=== PATIENT | male | born 1955 | race Caucasian/White ===

== ENCOUNTER → 2018-07-07 | Outpatient (REF) | payer MEDICARE, OTHER ==
[~2018-07-07] MED LIST: FAMO20TA2 OR; FLEXERIL PO; HYDR7.5T33 PO; LIDO5DIS TOP; NAPR500T OR; TRAM50TA2 OR; VICO5TAB PO
== END ==
LOC: M LAB REF 12:19
PROVIDERS: ATTEND Physician Assistant Medical
DX: M54.5 Low back pain (principal)

== ENCOUNTER → 2018-08-24 | Outpatient (CLI) | payer MEDICARE, OTHER ==
[2018-08-24 17:21] LABS: BASO # 0.1 10^3/uL (0.0-0.2); BASO % 0.6 % (0.0-1.0); EOS # 0.2 10^3/uL (0.0-0.50); EOS % 1.8 % (0.0-3.0); HEMATOCRIT 50.1 % (42.0-52.0); HEMOGLOBIN 16.7 g/dl (13.5-17.5); LYMPH # 2.7 10^3/uL (1.5-4.5); LYMPH % 31.1 % (24.0-44.0); MEAN CORPUSCULAR HEMOGLOBIN 30.6 pg (27.0-33.0); MEAN CORPUSCULAR HGB CONC 33.3 g/dl (32.0-36.5); MEAN CORPUSCULAR VOLUME 91.9 fl (80.0-96.0); MONO # 0.5 10^3/uL (0.0-0.8); MONO % 5.6 % (0.0-5.0); NEUTROPHILS # 5.2 10^3/uL (1.8-7.7); NEUTROPHILS % 60.7 % (36.0-66.0); PLATELET COUNT, AUTOMATED 205 10^3/uL (150-450); RED BLOOD COUNT 5.45 10^6/uL (4.30-6.10); WHITE BLOOD COUNT 8.5 10^3/uL (4.0-10.0)
[2018-08-24 17:39] LABS: ALBUMIN 3.9 GM/DL (3.2-5.2); ALT/SGPT 33 U/L (12-78); BILIRUBIN,TOTAL 0.5 MG/DL (0.2-1.0); BLOOD UREA NITROGEN 18 MG/DL (7-18); CALCIUM LEVEL 9.1 MG/DL (8.8-10.2); CARBON DIOXIDE LEVEL 32 MEQ/L (21-32); CHLORIDE LEVEL 105 MEQ/L (98-107); CREATININE FOR GFR 0.92 MG/DL (0.70-1.30); FREE T4 1.07 NG/DL (0.76-1.46); GLOMERULAR FILTRATION RATE > 60.0 (>49); GLUCOSE, FASTING 86 MG/DL (70-100); NT-PRO BNP 23 PG/ML (<125); POTASSIUM SERUM 4.1 MEQ/L (3.5-5.1); SODIUM LEVEL 140 MEQ/L (136-145); TOTAL PROTEIN 7.4 GM/DL (6.4-8.2)
== END ==
LOC: M LABDRWAD 14:43
PROVIDERS: ATTEND Physician Assistant
DX: R60.9 Edema, unspecified (principal)

== ENCOUNTER → 2018-08-24 | Outpatient (CLI) | payer MEDICARE, OTHER ==
--- NOTE | 2018-08-24 15:37 | REP ---
Chest two views HISTORY: Edema Comparison: 11/13/2008 The lungs are clear. The heart is normal in size. The pulmonary vasculature is normal in appearance. The bony structure is intact. IMPRESSION: No acute disease. Electronically Signed by Freddy Ovalles MD 08/24/2018 03:29 P
== END ==
LOC: M ADAMS 14:41
PROVIDERS: ATTEND Physician Assistant
DX: R60.9 Edema, unspecified (principal)

== ENCOUNTER → 2018-09-27 | Outpatient (CLI) | payer MEDICARE, OTHER ==
[2018-09-27 15:15] LABS: BLOOD UREA NITROGEN 13 MG/DL (7-18); CALCIUM LEVEL 8.8 MG/DL (8.8-10.2); CARBON DIOXIDE LEVEL 28 MEQ/L (21-32); CHLORIDE LEVEL 107 MEQ/L (98-107); CREATININE FOR GFR 0.81 MG/DL (0.70-1.30); GLOMERULAR FILTRATION RATE > 60.0 (>49); GLUCOSE, FASTING 96 MG/DL (70-100); NT-PRO BNP 28 PG/ML (<125); POTASSIUM SERUM 4.1 MEQ/L (3.5-5.1); SODIUM LEVEL 142 MEQ/L (136-145)
--- NOTE | 2018-09-27 15:20 | REP ---
Left lower extremity Duplex Doppler venous ultrasound: Real time compression and duplex Doppler interrogation of the left lower extremity deep venous system is performed. The left common femoral, superficial femoral and popliteal veins are fully compressible with transducer pressure and demonstrate normal spontaneous and phasic flow, without evidence of deep venous thrombosis. Impression: No evidence of deep venous thrombosis of the left lower extremity femoral popliteal venous system. Electronically Signed by Chandler Pennington MD 09/27/2018 03:11 P
== END ==
LOC: M LAB 14:07
PROVIDERS: ATTEND Physician Assistant
DX: M79.622 Pain in left upper arm (principal); I87.2 Venous insufficiency (chronic) (peripheral)

== ENCOUNTER → 2019-08-07 | Outpatient (CLI) | payer MEDICARE ==
--- NOTE | 2019-08-09 15:23 | SLEEPHOME ---
DATE OF PROCEDURE: 08/07/2019 ORDERED BY: Charlotte Ashraf NP Diagnostic home sleep testing was performed due to concern for the obstructive sleep apnea syndrome. For testing, a nocturnal T3 respiratory monitoring device was used. Continuous record was made of pulse, oxygen saturation, airflow, chest and abdominal strain and body position. 9 hours and 59 minutes of data were reviewed. There were 6 hours and 34 minutes marked as time in bed. During the interval marked time in bed, there were 525 respiratory events identified of 10 seconds in duration or greater for respiratory event index of 79.9. The events were primarily obstructive. Baseline pulse rate 66, pulse rate ranged 46-111. Baseline saturation 89.7%. Saturations fell to 72%. Testing was performed in both the supine and nonsupine positions. IMPRESSION: 1. Abnormal home sleep testing with repetitive respiratory events and oxygen desaturations to 72% with a respiratory event index of 79.9 is consistent with the obstructive sleep apnea syndrome. RECOMMENDATIONS: The patient should be encouraged to undergo formal sleep evaluation.
== END ==
LOC: M SLEEP HO 11:34
PROVIDERS: ATTEND Nurse Practitioner Adult Health
DX: G47.30 Sleep apnea, unspecified (principal)

== ENCOUNTER → 2019-08-22 | Outpatient (CLI) | payer MEDICARE ==
--- NOTE | 2019-08-23 12:43 | SLEEPCENT ---
DATE OF STUDY: 08/22/2019 ORDERING PROVIDER: CORIE Tang Nocturnal polysomnography was performed for the titration of pressure therapy in this patient with a clinical diagnosis of obstructive sleep apnea syndrome confirmed by home testing revealing a respiratory event index of 79.9 with oxygen desaturations to 72%. For testing, a ResMed Quattro full face mask of large size was used. 5 cm of water pressure were applied to the circuit, and the lights were extinguished. 8 hours and 9 minutes of data were reviewed. There were 370.5 minutes of sleep identified. Sleep latency was mildly prolonged 15 minutes. Rapid eye movement (REM) latency was short at 46 minutes. Sleep architecture was good with evidence of REM rebound. There were 5-6 REM cycles noted. Overall sleep efficiency was 76.5%. The patient's electrocardiogram showed a sinus rhythm with an average heart rate of 60 beats per minute. Electroencephalogram (EEG) showed reasonably normal waveforms for awake and sleep. Respiratory events were fully palliated with continuous positive airway pressure (CPAP) at a pressure of +14. Some activity was noted in the limb leads. Limb movement arousal index was only 4.4. IMPRESSION: Obstructive sleep apnea syndrome (G47.33). RECOMMENDATION: Nightly use of pressure therapy, 14 cm of water.
== END ==
LOC: M SLEEP 20:00
PROVIDERS: ATTEND Nurse Practitioner Adult Health
DX: G47.33 Obstructive sleep apnea (adult) (pediatric) (principal)

== ENCOUNTER 2019-10-23 10:35 | Emergency (ER) | payer MEDICARE ==
[~2019-10-23] VITALS: Ht 182.9 cm; Wt 163.7 kg
--- NOTE | 2019-10-23 11:18 | REP ---
Portable chest x-ray: Single view. History: Chest pain. Comparison chest x-ray: August 24, 2018. Findings: Monitoring electrodes are seen. The lungs are symmetrically aerated and free of infiltrate. The pleural angles are sharp. Heart is not enlarged. The aorta is somewhat tortuous. Pulmonary vasculature is not increased. Impression: No acute disease. Electronically Signed by Elio Rich MD 10/23/2019 11:09 A
[2019-10-23 11:21] LABS: BASO # 0.1 10^3/uL (0.0-0.2); BASO % 0.8 % (0.0-1.0); EOS # 0.1 10^3/uL (0.0-0.5); EOS % 1.3 % (0.0-3.0); HEMATOCRIT 50.3 % (42.0-52.0); HEMOGLOBIN 16.7 g/dl (13.5-17.5); LYMPH # 1.8 10^3/uL (1.5-5.0); LYMPH % 29.5 % (24.0-44.0); MEAN CORPUSCULAR HEMOGLOBIN 30.1 pg (27.0-33.0); MEAN CORPUSCULAR HGB CONC 33.2 g/dl (32.0-36.5); MEAN CORPUSCULAR VOLUME 90.8 fl (80.0-96.0); MONO # 0.5 10^3/uL (0.0-0.8); MONO % 7.8 % (0.0-5.0); NEUTROPHILS # 3.6 10^3/uL (1.5-8.5); NEUTROPHILS % 60.4 % (36.0-66.0); PLATELET COUNT, AUTOMATED 201 10^3/uL (150-450); RED BLOOD COUNT 5.54 10^6/uL (4.30-6.10)
[2019-10-23 11:33] LABS: INR 1.01; PARTIAL THROMBOPLASTIN TIME 29.4 SECONDS (25.0-38.4)
[2019-10-23] MEDS ORDERED: ISOVUE-370 76% 100ML VIAL As Ordered ONE (11:53)
[2019-10-23 11:58] LABS: ALT/SGPT 29 U/L (12-78); BILIRUBIN,DIRECT < 0.1 MG/DL (0.0-0.2); BILIRUBIN,TOTAL 0.5 MG/DL (0.2-1.0); BLOOD UREA NITROGEN 14 MG/DL (7-18); CALCIUM LEVEL 9.4 MG/DL (8.8-10.2); CARBON DIOXIDE LEVEL 26 MEQ/L (21-32); CHLORIDE LEVEL 108 MEQ/L (98-107); CREATININE FOR GFR 0.89 MG/DL (0.70-1.30); FREE T4 1.21 NG/DL (0.76-1.46); GLOMERULAR FILTRATION RATE > 60.0 (>49); GLUCOSE, FASTING 87 MG/DL (70-100); LIPASE 53 U/L (73-393); NT-PRO BNP 11 PG/ML (<125); POTASSIUM SERUM 4.3 MEQ/L (3.5-5.1); SODIUM LEVEL 138 MEQ/L (136-145); TOTAL PROTEIN 7.5 GM/DL (6.4-8.2)
--- NOTE | 2019-10-23 13:07 | REP ---
CT ANGIOGRAM OF THE CHEST: TECHNIQUE: Axial contrast-enhanced images from the thoracic inlet to the upper abdomen using 100 mL Isovue-370 intravenous contrast material with multiplanar reformations. There is no CT evidence of pulmonary embolism. There is no thoracic aortic aneurysm or dissection. The heart is not significantly enlarged. There is no pleural or pericardial effusion. There is no significant mediastinal, hilar or chest wall lymphadenopathy. There is mild bibasilar fibroatelectasis. No consolidating infiltrate is seen. There is a small cyst in the upper pole of the left kidney as well as a small intrarenal calcification. There are degenerative changes of the spine. IMPRESSION: No CT evidence of pulmonary embolism or aortic dissection. Electronically Signed by Chandler Pennington MD 10/24/2019 04:37 P
[2019-10-23] MEDS ORDERED: KETO10TAB PO (13:52)
[2019-10-23] MEDS ORDERED: KETOROLAC 30 MG/ML 1ML VIAL IV ONE (14:00)
[2019-10-23 14:46] VITALS: BP 139/71
--- NOTE | 2019-10-24 09:30 | ECGEPIP ---
[facility] - ED Test Date: 2019-10-23 Pat Name: KASANDRA AG Department: Room: - Gender: Male Assembly Member: umu : 1955 Requested By: SCOTT Johnston Order Number: [id number] Reading MD: Javier Harmon Measurements Intervals [place] Rate: 61 P: 57 MI: 166 QRS: -28 QRSD: 122 T: 49 QT: 401 QTc: 406 Interpretive Statements SINUS RHYTHM BORDERLINE LEFT AXIS DEVIATION INCOMPLETE RIGHT BUNDLE BRANCH BLOCK NO PRIORS FOR COMPARISON Electronically Signed on 10-24-2019 9:30:03 EDT by Javier Harmon
== END 2019-10-23 14:43 | disposition home or self-care (01) ==
LOC: M ED 10:35
DX: R07.9 Chest pain, unspecified (principal); I10 Essential (primary) hypertension; I45.10 Unspecified right bundle-branch block; F12.90 Cannabis use, unspecified, uncomplicated; Z88.8 Allergy status to other drugs, medicaments and biological substances; Z87.891 Personal history of nicotine dependence
CPT/HCPCS: 71045; 71275; 80047; 80048; 80076; 83690; 83880; 84439; 84443; 84484; 85025; 85610; 85730; 93005; 93041; 94760; 96374; 99284; J1885; Q9967

== ENCOUNTER → 2020-02-25 | Outpatient (REF) | payer MEDICARE ==
[~2020-02-25] MED LIST changes: +KETO10TAB PO
[2020-02-25 13:22] LABS: BASO # 0.1 10^3/uL (0.0-0.2); BASO % 0.7 % (0.0-1.0); EOS # 0.1 10^3/uL (0.0-0.5); EOS % 1.4 % (0.0-3.0); HEMATOCRIT 52.7 % (42.0-52.0); HEMOGLOBIN 17.2 g/dl (13.5-17.5); LYMPH # 2.7 10^3/uL (1.5-5.0); LYMPH % 35.6 % (24.0-44.0); MEAN CORPUSCULAR HGB CONC 32.6 g/dl (32.0-36.5); MONO # 0.6 10^3/uL (0.0-0.8); MONO % 7.9 % (0.0-5.0); NEUTROPHILS # 4.1 10^3/uL (1.5-8.5); NEUTROPHILS % 54.1 % (36.0-66.0); PLATELET COUNT, AUTOMATED 208 10^3/uL (150-450); RED BLOOD COUNT 5.73 10^6/uL (4.30-6.10); WHITE BLOOD COUNT 7.6 10^3/uL (4.0-10.0)
[2020-02-25 13:32] LABS: ALBUMIN 4.3 GM/DL (3.2-5.2); ALT/SGPT 36 U/L (12-78); BILIRUBIN,TOTAL 0.5 MG/DL (0.2-1.0); BLOOD UREA NITROGEN 14 MG/DL (7-18); CALCIUM LEVEL 9.8 MG/DL (8.8-10.2); CARBON DIOXIDE LEVEL 29 MEQ/L (21-32); CHLORIDE LEVEL 105 MEQ/L (98-107); CHOLESTEROL LEVEL 229 MG/DL (<200); CHOLESTEROL RISK RATIO 5.088 (<5); GLOMERULAR FILTRATION RATE > 60.0 (>49); GLUCOSE, FASTING 85 MG/DL (70-100); HDL CHOLESTEROL 45 MG/DL (>40); LDL CHOLESTEROL 143 MG/DL (<100); NON-HDL-C 184 MG/DL; POTASSIUM SERUM 4.3 MEQ/L (3.5-5.1); SODIUM LEVEL 139 MEQ/L (136-145); TOTAL PROTEIN 7.9 GM/DL (6.4-8.2); TRIGLYCERIDES LEVEL 204 MG/DL (<150)
[2020-02-25 13:42] LABS: HEMOGLOBIN A1c 5.3 %
== END ==
LOC: M SFHCADAM 10:03
PROVIDERS: ATTEND Physician Assistant Medical
DX: E66.01 Morbid (severe) obesity due to excess calories (principal); I10 Essential (primary) hypertension; R40.0 Somnolence; I77.810 Thoracic aortic ectasia; Z79.899 Other long term (current) drug therapy
CPT/HCPCS: 80053; 80061; 83036; 85025; G0463

== ENCOUNTER → 2020-03-06 | Outpatient (CLI) | payer MEDICARE | LOC: M RAD 17:21 | PROVIDERS: ATTEND Physician Assistant Medical | DX: R20.2 Paresthesia of skin (principal); M54.5 Low back pain; F17.200 Nicotine dependence, unspecified, uncomplicated ==

== ENCOUNTER → 2020-03-19 | Outpatient (CLI) | payer MEDICARE ==
--- NOTE | 2020-03-19 10:30 | REPVR ---
PROCEDURE INFORMATION: Exam: MR Lumbar Spine Without Contrast. Exam date and time: 03/19/2020 9:34 AM Age: 64 years old Clinical indication: Low back pain; Additional info: Lbp TECHNIQUE: Imaging protocol: Multiplanar magnetic resonance images of the lumbar spine without intravenous contrast. COMPARISON: DX SPINE LS COMPLETE 11/23/2018 10:54 AM FINDINGS: Vertebrae: No acute abnormality identified. Spinal cord: The conus tip is at the T12-L1 level. Normal signal. No cord compression. L1-L2: No significant disc disease. No significant spinal canal stenosis. No neural foraminal stenosis. L2-L3: No significant disc disease. No significant spinal canal stenosis. No neural foraminal stenosis. L3-L4: No significant disc disease. The AP thecal sac dimension is 8.8 mm. No neural foraminal stenosis. L4-L5: No significant disc disease. No significant spinal canal stenosis. Mild left neural foraminal narrowing. Left ligamentum flavum hypertrophy. Moderate left lateral recess stenosis. Possible mild left descending L5 root impingement. Moderate left primary facet osteoarthritis. L5-S1: No significant disc disease. No significant spinal canal stenosis. Moderate left neural foraminal narrowing. Mild left primary facet osteoarthritis. Soft tissues: Unremarkable. IMPRESSION: Mild L3-L4 spinal stenosis. Left L4-L5 lateral recess stenosis. Clinical correlation to assess for any L5 root specific symptomatology is recommended as above. Neural foraminal stenoses as above. Please see additional findings as above. Electronically signed by: Javier Lopez On 03/19/2020 10:29:58 AM
== END ==
LOC: M RAD 07:53
PROVIDERS: ATTEND Physician Assistant Medical
DX: M54.5 Low back pain (principal); R20.2 Paresthesia of skin; F17.210 Nicotine dependence, cigarettes, uncomplicated; M48.061 Spinal stenosis, lumbar region without neurogenic claudication

== ENCOUNTER 2020-06-18 13:19 | Emergency (ER) | payer MEDICARE ==
[~2020-06-18] VITALS: Ht 182.9 cm; Wt 156.4 kg
--- OUTSIDE RECORDS SUMMARY | 2020-06-18 13:27 | CCD | Continuity of Care Document ---
Author Author Juan Diego CISSE MD Organization Unknown Address [address] [place] [address] Phone [phone] Care Team Providers Care Rib Chopper Name Role Phone BurlesonAwilda R.P.A. AUTM [phone] AUTM Unavailable Problems Active Problems Provider Date Obstructive sleep apnea syndrome CORIE Tang Onset: 08/21/2019 Social History Type Date Description Comments Sex Unknown Cigarette Use Pack Years - 100 ETOH Use Denies alcohol use Tobacco Use Start: 05/02/70 End: 11/30/18 Patient is a forme r smoker 2PPD X'S 48 YEARS Smoking Status Reviewed: 10/11/19 Patient is a former smoker 2P PD X'S 48 YEARS Allergies, Adverse Reactions, Alerts Description No Known Drug Allergies Medications Active Medications SIG Qnty Indications Ordering Provide r Date Magnesium Citrate 1.745GM/30ML Monica ution one 10 oz bottle green or clear only, use for additional prep at 2-3 days before procedure 296ml R19.4 Cristi Cisse MD 04/15/2020 Miralax 17GM/Scoop Powder use as directed see dr cisse colon preparation instructions 510gm R19.4 Jaya Cisse MD 04/15/2020 CPAP Device 14cm lcw CORIE Tang 08/23/2019 Afrin Saline Nasal Mist 0.65% Solu tion night time as needed Unknown Meloxicam 15mg Tablets Unknown Atorvastatin Calcium 40mg Tablets daily Unknown Immunizations Description No Information Available Vital Signs Date Vital Result Comment 04/15/2020 10:32am BP Systolic 124 mmHg BP Diastolic 80 mmHg Height 71 inches 5'11" Weight 365.00 lb BMI (Body Mass Index) 50.9 kg/m2 [place] Body Weight 172 lb Weight 165.564 kg BSA (Body Surface Area) 2.72 m2 10/11/2019 8:19am BP Systolic 130 mmHg BP Diastolic 80 mmHg Heart Rate 66 /min O2 % BldC Oximetry 95 % Body Temperature 97.2 F Height 71 inches 5'11" Weight 367.00 lb BMI (Body Mass Index) 51.2 kg/m2 [place] Body Weight 172 lb Weight 166.471 kg BSA (Body Surface Area) 2.73 m2 Results Description No Information Available Procedures Description No Information Available Medical Devices Description No Information Available Encounters Type Date Location Provider Dx Diagnosis Office Visit 04/15/2020 10:00a [facility] Cristi Cisse MD R19.4 Change in bowel habit K50.811 Crohn's disease of both smal l and lg int w rectal bleeding Assessments Date Code Description Provider 04/15/2020 R19.4 Change in bowel habit Cristi pearl MD 04/15/2020 K50.811 Crohn's disease of b oth small and large intestine with rectal bleeding Cristi Cisse MD Plan of Treatment Future Appointment(s):* 10/13/2020 9:30 am - Charlotte Ashraf, ANP at [facility] Pulmonary/Thoracic 04/15/2020 - Cristi Cisse MD* R19.4 Change in bowel habit * K50.811 Crohn's disease of both small and large intestine with rectal bleeding * * New Medication:* Magnesium Citrate 1.745 GM/30ML * Miralax 17 GM/Scoop * New Orders:* Colonoscopy, Ordered: 04/15/20 * Recommendations:* Pt with recent onset of hard stools and occasional blood on stool. Stools also loose at times. Very high lactose intakefiber supplement Reduce/eliminate milk/ice cream--at least for 1 week, to assess for lactose intolerance. Functional Status Description No Information Available Mental Status Description No Information Available Referrals Refer to Reason for Referral Status Appt Date Cristi Cisse MD CHANGE IN BOWEL HABITS, HEMATOCHEZIA Schedule d 04/15/2020 [facility], Gastroenterology [address], [address] [place] [address] [phone]
--- OUTSIDE RECORDS SUMMARY | 2020-06-18 13:27 | CCD ---
Author Author [facility] Organization [facility] Address Unknown Phone Unavailable Care Team Providers Care Machine Cutter Name Role Phone Awilda Burleson Unavailable PROBLEMS Type Condition ICD9-CM Code [id number] Code Onset Dates Condition S tatus SNOMED Code Notes Problem DDD (degenerative disc disease), lumbar M51.36 Active 32036803 Problem Morbid obesity due to excess calories E66.01 Ac tive 972343421 Problem Essential hypertension I10 Active 29418290 Problem Stress at home F43.9 Active 807326122 Problem Bilateral leg paresthesia R20.2 Active 633248 005 Problem Cigarette nicotine dependence without complication F17.210 Active 34707185 Problem Mixed hyperlipidemia E78.2 Active 807124471 Problem Chronic venous insufficiency I87.2 Active 206 81538 Problem Dilated aortic root I77.810 Active 297301185 Problem Ascending aorta dilatation I77.810 Active 56128 5007 Problem Adjustment disorder with anxiety F43.22 Active 91610587 Problem Other chronic pain G89.29 Active 61723199 ALLERGIES No Known Allergies ENCOUNTERS from 1955 to 2020-04-05 Encounter Location Date Provider Diagnosis [facility] [address] [place] [address] Apr, Dalia Burleson Medicare annual wellness visit, subsequent Z00.00 ; Cigarette nicotine dependence without complication F17.210 ; Morbid obesity due to excess calories E66.01 ; DDD (degenerative disc disease), lumbar M51.36 ; Essential hypertension I10 and Mixed hyperlipidemia E78.2 IMMUNIZATIONS No Information SOCIAL HISTORY Tobacco Use: Social History Observation Description Date Details (start date - stop date) Current Smoker Sex Assigned At : Social History Observation Description Sex Assigned At Unknown Education: Question Answer Notes Level of Education: Finished High School Audit Question Answer Notes Total Score: 0 Interpretation: Alcohol Education Language: Question Answer Notes Languages spoken: Turkmen Latter-Day: Question Answer Notes Latter-Day 21 [employer] Sexual Hx: Question Answer Notes Had sex in the last 12 months (vaginal, oral, or anal)? No Drug and Alcohol Question Answer Notes Total Score: 1 Interpretation: Low level Alcohol Screening: Question Answer Notes Did you have a drink containing alcohol in the past year? No Points 0 Interpretation Negative BMI Care Goal Follow-Up Question Answer Notes Above Normal BMI Follow-Up Dietary management educatio n, guidance, and counseling Tobacco Use: Question Answer Notes Are you a: current smoker How many cigarettes a day do you smoke? 5 or less Are you interested in quitting? Thinking about quitting Counseled the patient on smoking cessation, education provid ed 02/25/2020 REASON FOR REFERRAL No Information VITAL SIGNS Weight 372.2 lbs Apr, Height 6'1" in Apr, BMI 49.10 kg/m2 Apr, Heart Rate 83 /min Apr, Respiratory Rate 18 /min Apr, Temperature 97.5 degrees Fahrenheit Apr, Oximetry 95 Apr, Blood pressure systolic 138 mm Hg Apr, Blood pressure diastolic 76 mm Hg Apr, MEDICATIONS Medication SIG (Take, Route, Frequency, Duration) Notes Start Da te End Date Status Atorvastatin Calcium 40 MG 1 tablet Orally Once a day for 90 day (s) Apr, Active Ketorolac Tromethamine 10 MG 1 tablet with food or mil k as needed Orally Every 6 hours as needed Not-Taking Meloxicam 15 MG 1 tablet Orally Once a day for 90 day(s) 0 Apr, Active Furosemide 20 MG 1 tablet Orally twice daily Not-Taking PROCEDURES No Information RESULTS No Results REASON FOR VISIT 6 week [phone] MEDICAL (GENERAL) HISTORY Type Description Date Medical History morbid obesity Medical History chronic venous insuff Medical History DDD, lumbar - disability Medical History yulissa dep Medical History marijuana use Medical History HTN, EKG 11/17 SR, RBBB, 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 Apr, Cigarette nicotine dependenc e without complication (ICD-10 - F17.210) Enc continued cessation. Apr, Morbid obesity due to excess calories (ICD-10 - E66.01) Pt was counselled on the importance of diet and exercise in maintaining a healthy weight and that patients weight currently poses a health risk. Pt verbalizes understanding. This is really likely the culprit behind both his complaints. Apr, DDD (degenerative disc disease), lumbar (ICD-10 - M51.36) Has referral pending to [facility]. Apr, Essential hypertension (ICD-10 - I10) Pressures stable. Apr, Mixed hyperlipidemia (ICD-10 - E78.2) 01/2020 Trig 204, LDL 143, HDl 45, ASCVD 13.7% non smoker, 20% smoker, (hx of smoking on and off). PLAN OF TREATMENT Medication Medication Name Sig Start Date Stop Date Atorvastatin Calcium 40 MG 1 tablet Orally Once a day for 90 day(s) Apr, Meloxicam 15 MG 1 tablet Orally Once a day for 90 day(s) Apr, Treatment Notes Assessment Notes Clinical Notes Medicare annual wellness visit, subsequent Counseled on RHM, safety, imms. Cigarette nicotine dependence without complication Enc danielle nued cessation. Morbid obesity due to excess calories Pt was counselle d on the importance of diet and exercise in maintaining a healthy weight and that patients weight currently poses a health risk. Pt verbalizes understanding. This is really likely the culprit behind both his complaints. DDD (degenerative disc disease), lumbar Has referral pending to [facility]. Essential hypertension Pressures stable. Mixed hyperlipidemia 01/2020 Trig 204, LDL 143, H Dl 45, ASCVD 13.7% non smoker, 20% smoker, (hx of smoking on and off). Future Test Test Name Order Date Comprehensive Metabolic Profile (CMP) 20200930 LIPID PANEL (CARDIAC RISK) 20200930 Next Appt Details 6 Months, BW before Reason: Provider Name:Awilda Burleson, 2020-09-30 08:00:00 AM, [address], [place], [address], Insurance Providers Payer Name Payer Address Payer Phone Insured Name Patient Relati onship to Insured Coverage Start Date Coverage End Date MEDICARE COMPLETE [employer] [address] [address] [facility] [id number] KASANDRA AG self
[2020-06-18] MEDS ORDERED: MELO15TA28 PO (13:28)
[2020-06-18] MEDS ORDERED: FURO20TA2 PO (13:28)
--- OUTSIDE RECORDS SUMMARY | 2020-06-18 13:28 | CCD ---
Author Author [facility] Organization [facility] Address Unknown Phone Unavailable Care Team Providers Care Behavior Analyst Name Role Phone Awilda Burleson Unavailable PROBLEMS Type Condition ICD9-CM Code [id number] Code Onset Dates Condition S tatus SNOMED Code Notes Problem Cigarette nicotine dependence without complication F17.210 Active 21528203 Problem DDD (degenerative disc disease), lumbar M51.36 Active 85967219 Problem Morbid obesity due to excess calories E66.01 Ac tive 797572982 Problem Bilateral leg paresthesia R20.2 Active 294774 005 Problem Chronic venous insufficiency I87.2 Active 206 79612 Problem Other chronic pain G89.29 Active 27527818 Problem Stress at home F43.9 Active 804899791 Problem Essential hypertension I10 Active 55017708 Problem Dilated aortic root I77.810 Active 946328647 Problem Ascending aorta dilatation I77.810 Active 37744 5007 Problem Adjustment disorder with anxiety F43.22 Active 27708005 ALLERGIES No Known Allergies ENCOUNTERS from 1955 to 2020-03-21 Encounter Location Date Provider Diagnosis [facility] [address] [place] [address] Mar, Mar ia Sarah Beth DDD (degenerative disc disease), lumbar M51.36 IMMUNIZATIONS No Information SOCIAL HISTORY Tobacco Use: Social History Observation Description Date Details (start date - stop date) Current Smoker Sex Assigned At : Social History Observation Description Sex Assigned At Unknown Education: Question Answer Notes Level of Education: Finished High School Audit Question Answer Notes Total Score: 0 Interpretation: Alcohol Education Language: Question Answer Notes Languages spoken: Azerbaijani Hinduism: Question Answer Notes Hinduism 21 [employer] Sexual Hx: Question Answer Notes Had sex [...] REASON FOR REFERRAL No Information VITAL SIGNS No information MEDICATIONS Medication SIG (Take, Route, Frequency, Duration) Notes Start Da te End Date Status Furosemide 20 MG 1 tablet Orally twice daily Not-Taking Ketorolac Tromethamine 10 MG 1 tablet with food or mil k as needed Orally Every 6 hours as needed Not-Taking PROCEDURES No Information RESULTS No Results REASON FOR VISIT MRI results MEDICAL (GENERAL) HISTORY Type Description Date Medical History morbid obesity Medical History chronic venous insuff Medical History DDD, lumbar - disability Medical History yulissa dep Medical History marijuana use Medical History HTN, EKG 11/17 SR, RBBB, 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 Medical History dilated Aortic root/ascending aorta 07/20 19 ECHO Medical History JUAN Surgical History No Surgical history information Goals Section No Information Health Concerns No Information MEDICAL EQUIPMENT No Information MENTAL STATUS No Information FUNCTIONAL STATUS No Information ASSESSMENTS Encounter Date Diagnosis Assessment Notes Treatment Notes Treatm ent Clinical Notes Mar, DDD (degenerative disc disease), lumbar (ICD-10 - M51.36) PLAN OF TREATMENT Next Appt Details Provider Name:Awilda Burleson 2020-04-01 08:30:00 AM, [address] [place] [address], [id number], Insurance Providers Payer Name Payer Address Payer Phone Insured Name Patient Relati onship to Insured Coverage Start Date Coverage End Date MEDICARE COMPLETE UNITED HEALTHCARE [address] [address] [facility] [id number] KASANDRA AG self
--- OUTSIDE RECORDS SUMMARY | 2020-06-18 13:28 | CCD ---
Author Author [facility] Organization [facility] Address Unknown Phone Unavailable Care Team Providers Care Parking Meter Installer Name Role Phone Michelle Kent MD Unavailable Unavailable Michelle Kent MD Unavailable Unavailable Michelle Kent MD Unavailable Unavailable Michelle Kent MD Unavailable Unavailable Michelle Kent MD Unavailable Unavailable Michelle Kent MD Unavailable Unavailable Michelle Kent MD Unavailable Unavailable Michelle Kent MD Unavailable Unavailable Michelle Kent MD Unavailable Unavailable Michelle Kent MD Unavailable Unavailable Michelle Kent MD Unavailable Unavailable Michelle Kent MD Unavailable Unavailable Michelle Kent MD Unavailable Unavailable Michelle Kent MD Unavailable Unavailable Michelle Kent MD Unavailable Unavailable Michelle Kent MD Unavailable Unavailable Michelle Kent MD Unavailable Unavailable Michelle Kent MD Unavailable Unavailable Michelle Kent MD Unavailable Unavailable Michelle Kent MD Unavailable Unavailable Slezka, Vojtech MD Unavailable Unavailable Slezka Vojtech MD Unavailable Unavailable Slezka Vojtech MD Unavailable Unavailable Slezka Vojtech MD Unavailable Unavailable Slezka Vojtech MD Unavailable Unavailable Slezka Vojtech MD Unavailable Unavailable Slezka Vojtech MD Unavailable Unavailable Slezka Vojtech MD Unavailable Unavailable Slezka Vojtech MD Unavailable Unavailable Slezka Vojtech MD Unavailable Unavailable Slezka Vojtech MD Unavailable Unavailable Slezka Vojtech MD Unavailable Unavailable Slezka Vojtech MD Unavailable Unavailable Slezka Vojtech MD Unavailable Unavailable Slezka Vojtech MD Unavailable Unavailable Slezka Vojtech MD Unavailable Unavailable Slezka Vojtech MD Unavailable Unavailable Slezka Vojtech MD Unavailable Unavailable Slezka Vojtech MD Unavailable Unavailable Slezka Vojtech MD Unavailable Unavailable Slezka Vojtech MD Unavailable Unavailable Slezka Vojtech MD Unavailable Unavailable Slezka Vojtech MD Unavailable Unavailable Slezka Vojtech MD Unavailable Unavailable Slezka Vojtech MD Unavailable Unavailable Slezka Vojtech MD Unavailable Unavailable Slezka Vojtech MD Unavailable Unavailable Slezka Vojtech MD Unavailable Unavailable Slezka Vojtech MD Unavailable Unavailable Slezka Vojtech MD Unavailable Unavailable Slezka Vojtech MD Unavailable Unavailable Slezka Vojtech MD Unavailable Unavailable Slezka Vojtech MD Unavailable Unavailable Slezka Vojtech MD Unavailable Unavailable Slezka Vojtech MD Unavailable Unavailable Slezka Vojtech MD Unavailable Unavailable Slezka Vojtech MD Unavailable Unavailable Slezka Vojtech MD Unavailable Unavailable Mirta, Yessi Suzette PA Unavailable Unavailable Mirta, Yessi Suzette PA Unavailable Unavailable Imrta, Yessi Suzette PA Unavailable Unavailable Mirta, Yessi Suzette PA Unavailable Unavailable Mirta, Yessi Suzette PA Unavailable Unavailable Mirta, Yessi Suzette PA Unavailable Unavailable Mirta, Yessi Suzette PA Unavailable Unavailable Mirta, Yessi Suzette PA Unavailable Unavailable Mirta, Yessi Suzette PA Unavailable Unavailable Mirta, Yessi Suzette PA Unavailable Unavailable Mirta, Yessi Suzette PA Unavailable Unavailable Mirta, Yessi Suzette PA Unavailable Unavailable Mirta, Yessi Suzette PA Unavailable Unavailable Mirta, Yessi Suzette PA Unavailable Unavailable Mirta, Yessi Suzette PA Unavailable Unavailable Mirta, Yessi Suzette PA Unavailable Unavailable Mirta, Yessi Suzette PA Unavailable Unavailable Mirta, Yessi Suzette PA Unavailable Unavailable Mirta, Yessi Suzette PA Unavailable Unavailable Mirta, Yessi Suzette PA Unavailable Unavailable Mirta, Yessi Suzette PA Unavailable Unavailable Mirta, Yessi Suzette PA Unavailable Unavailable Mirta, Yessi Suzette PA Unavailable Unavailable Mirta, Yessi Suzette PA Unavailable Unavailable Mirta, Yessi Suzette PA Unavailable Unavailable Mirta, Yessi Suzette PA Unavailable Unavailable Mirta, Yessi Suzette PA Unavailable Unavailable Mirta, Yessi Suzette PA Unavailable Unavailable Mirta, Yessi Suzette PA Unavailable Unavailable Mirta, Yessi Suzette PA Unavailable Unavailable Mirta, Yessi Suzette PA Unavailable Unavailable Mirta, Yessi Suzette PA Unavailable Unavailable [place], N Parvin SCRAP PREPARER Unavailable Unavailable Gennaro, N Parvin SCRAP PREPARER Unavailable Unavailable [place], N Parvin SCRAP PREPARER Unavailable Unavailable [place], N Parvin SCRAP PREPARER Unavailable Unavailable Gennaro, N Parvin SCRAP PREPARER Unavailable Unavailable Gennaro, N Parvin SCRAP PREPARER Unavailable Unavailable Gennaro, N Parvin SCRAP PREPARER Unavailable Unavailable Gennaro, N Parvin SCRAP PREPARER Unavailable Unavailable [place], N Parvin SCRAP PREPARER Unavailable Unavailable Gennaro, N Parvin SCRAP PREPARER Unavailable Unavailable [place], N Parvin SCRAP PREPARER Unavailable Unavailable [place], N Parvin SCRAP PREPARER Unavailable Unavailable [place], N Parvin SCRAP PREPARER Unavailable Unavailable [place], N Parvin SCRAP PREPARER Unavailable Unavailable Gennaro, N Parvin SCRAP PREPARER Unavailable Unavailable Gennaro, N Parvin SCRAP PREPARER Unavailable Unavailable Gennaro, N Parvin SCRAP PREPARER Unavailable Unavailable [place], N Parvin SCRAP PREPARER Unavailable Unavailable Gennaro, N Parvin SCRAP PREPARER Unavailable Unavailable Gennaro, N Parvin SCRAP PREPARER Unavailable Unavailable Gennaro, N Parvin SCRAP PREPARER Unavailable Unavailable [place], N Parvin SCRAP PREPARER Unavailable Unavailable [place], N Parvin SCRAP PREPARER Unavailable Unavailable [place], N Parvin SCRAP PREPARER Unavailable Unavailable [place], N Parvin SCRAP PREPARER Unavailable Unavailable Gennaro, N Parvin SCRAP PREPARER Unavailable Unavailable Gennaro, N Parvin SCRAP PREPARER Unavailable Unavailable Gennaro, N Parvin SCRAP PREPARER Unavailable Unavailable Gennaro, N Parvin SCRAP PREPARER Unavailable Unavailable Gennaro, N Parvin SCRAP PREPARER Unavailable Unavailable Gennaro, N Parvin SCRAP PREPARER Unavailable Unavailable SCOTT BROOKS MD Unavailable Unavailable SCOTT BROOKS MD Unavailable Unavailable SCOTT BROOKS MD Unavailable Unavailable SCOTT BROOKS MD Unavailable Unavailable SCOTT BROOKS MD Unavailable Unavailable SCOTT BROOKS MD Unavailable Unavailable SCOTT BROOKS MD Unavailable Unavailable SCOTT BROOKS MD Unavailable Unavailable REINDL, SCOTT NELSON Unavailable Unavailable REINDL, SCOTT NELSON Unavailable Unavailable REINDL, SCOTT NELSON Unavailable Unavailable REINDL, SCOTT NELSON Unavailable Unavailable REINDL, SCOTT NELSON Unavailable Unavailable REINDL, SCOTT NELSON Unavailable Unavailable REINDL, SCOTT NELSON Unavailable Unavailable REINDL, SCOTT NELSON Unavailable Unavailable REINDL, SCOTT NELSON Unavailable Unavailable REINDL, SCOTT NELSON Unavailable Unavailable REINDL, SCOTT NELSON Unavailable Unavailable REINDL, SCOTT NELSON Unavailable Unavailable REINDL, SCOTT NELSON Unavailable Unavailable REINDL, SCOTT NELSON Unavailable Unavailable REINDL, SCOTT NELSON Unavailable Unavailable REINDL, SCOTT NELSON Unavailable Unavailable REINDL, SCOTT NELSON Unavailable Unavailable REINDL, SCOTT NELSON Unavailable Unavailable REINDL, SCOTT NELSON Unavailable Unavailable REINDL, SCOTT NELSON Unavailable Unavailable REINDL, SCOTT NELSON Unavailable Unavailable REINDL, SCOTT NELSON Unavailable Unavailable REINDL, SCOTT NELSON Unavailable Unavailable REINDL, SCOTT NELSON Unavailable Unavailable REINDL, SCOTT NELSON Unavailable Unavailable REINDL, SCOTT NELSON Unavailable Unavailable REINDL, SCOTT NELSON Unavailable Unavailable REINDL, SCOTT NELSON Unavailable Unavailable REINDL, SCOTT NELSON Unavailable Unavailable REINDL, SCOTT NELSON Unavailable Unavailable REINDL, SCOTT NELSON Unavailable Unavailable REINDL, SCOTT NELSON Unavailable Unavailable REINDL, SCOTT NELSON Unavailable Unavailable REINDL, SCOTT NELSON Unavailable Unavailable REINDL, SCOTT NELSON Unavailable Unavailable REINDL, SCOTT NELSON Unavailable Unavailable LEOBARDO (BRODERICK), N ANDREI RPA-C Unavailable Unavailable LEOBARDO (BRODERICK), N ANDREI RPA-C Unavailable Unavailable LEOBARDO (BRODERICK), N ANDREI RPA-C Unavailable Unavailable LEOBARDO (BRODERICK), N ANDREI RPA-C Unavailable Unavailable LEOBARDO (BRODERICK), N ANDREI RPA-C Unavailable Unavailable LEOBARDO (BRODERICK), N ANDREI RPA-C Unavailable Unavailable LEOBARDO (BRODERICK), N ANDREI RPA-C Unavailable Unavailable LEOBARDO (BRODERICK), N ANDREI RPA-C Unavailable Unavailable LEOBARDO (BRODERICK), N ANDREI RPA-C Unavailable Unavailable LEOBARDO (BRODERICK), N ANDREI RPA-C Unavailable Unavailable LEOBARDO (BRODERICK), N ANDREI RPA-C Unavailable Unavailable LEOBARDO (BRODERICK), N ANDREI RPA-C Unavailable Unavailable LEOBARDO (BRODERICK), N ANDREI RPA-C Unavailable Unavailable LEOBARDO (BRODERICK), N ANDREI RPA-C Unavailable Unavailable LEOBARDO (BRODERICK), N ANDREI RPA-C Unavailable Unavailable LEOBARDO (BRODERICK), N ANDREI RPA-C Unavailable Unavailable LEOBARDO (BRODERICK), N ANDREI RPA-C Unavailable Unavailable LEOBARDO (BRODERICK), N ANDREI RPA-C Unavailable Unavailable LEOBARDO (BRODERICK), N ANDREI RPA-C Unavailable Unavailable LEOBARDO (BRODERICK), N ANDREI RPA-C Unavailable Unavailable LEOBARDO (BRODERICK), N ANDREI RPA-C Unavailable Unavailable LEOBARDO (BRODERICK), N ANDREI RPA-C Unavailable Unavailable LEOBARDO (BRODERICK), N ANDREI RPA-C Unavailable Unavailable LEOBARDO (BRODERICK), N ANDREI RPA-C Unavailable Unavailable LEOBARDO (BRODERICK), N ANDREI RPA-C Unavailable Unavailable LEOBARDO (BRODERICK), N ANDREI RPA-C Unavailable Unavailable LEOBARDO (BRODERICK), N ANDREI RPA-C Unavailable Unavailable LEOBARDO (BRODERICK), N ANDREI RPA-C Unavailable Unavailable LEOBARDO (BRODERICK), N ANDREI RPA-C Unavailable Unavailable LEOBARDO (BRODERICK), N ANDREI RPA-C Unavailable Unavailable LEOBARDO (BRODERICK), N ANDREI RPA-C Unavailable Unavailable LEOBARDO (BRODERICK), N ANDREI RPA-C Unavailable Unavailable LEOBARDO (BRODERICK), N ANDREI RPA-C Unavailable Unavailable LEOBARDO (BRODERICK), N ANDREI RPA-C Unavailable Unavailable LEOBARDO (BRODERICK), N ANDREI RPA-C Unavailable Unavailable LEOBARDO (BRODERICK), N ANDREI RPA-C Unavailable Unavailable LEOBARDO (BRODERICK), N ANDREI RPA-C Unavailable Unavailable LEOBARDO (BRODERICK), N ANDREI RPA-C Unavailable Unavailable LEOBARDO (BRODERICK), N ANDREI RPA-C Unavailable Unavailable LEOBARDO (BRODERICK), N ANDREI RPA-C Unavailable Unavailable LEOBARDO (BRODERICK), N ANDREI RPA-C Unavailable Unavailable LEOBARDO (BRODERICK), N ANDREI RPA-C Unavailable Unavailable LEOBARDO (BRODERICK), N ANDREI RPA-C Unavailable Unavailable LEOBARDO (BRODERICK), N ANDREI RPA-C Unavailable Unavailable LEOBARDO (BRODERICK), N ANDREI RPA-C Unavailable Unavailable LEOBARDO (BRODERICK), N ANDREI RPA-C Unavailable Unavailable LEOBARDO (BRODERICK), N ANDREI RPA-C Unavailable Unavailable LEOBARDO (BRODERICK), N ANDREI RPA-C Unavailable Unavailable LEOBARDO (BRODERICK), N ANDREI RPA-C Unavailable Unavailable LEOBARDO (BRODERICK), N ANDREI RPA-C Unavailable Unavailable LEOBARDO (BRODERICK), N ANDREI RPA-C Unavailable Unavailable LEOBARDO (BRODERICK), N ANDREI RPA-C Unavailable Unavailable LEOBARDO (BRODERICK), N ANDREI RPA-C Unavailable Unavailable [place], L Charlotte SCRAP PREPARER Unavailable Unavailable [place], L Charlotte SCRAP PREPARER Unavailable Unavailable [place], L Charlotte SCRAP PREPARER Unavailable Unavailable [place], L Charlotte SCRAP PREPARER Unavailable Unavailable [place], L Charlotte SCRAP PREPARER Unavailable Unavailable [place], L Charlotte SCRAP PREPARER Unavailable Unavailable [place], L Charlotte SCRAP PREPARER Unavailable Unavailable [place], L Charlotte SCRAP PREPARER Unavailable Unavailable [place], L Charlotte SCRAP PREPARER Unavailable Unavailable [place], L Charlotte SCRAP PREPARER Unavailable Unavailable [place], L Charlotte SCRAP PREPARER Unavailable Unavailable Pascale, L Charlotte SCRAP PREPARER Unavailable Unavailable [place], L Charlotte SCRAP PREPARER Unavailable Unavailable [place], L Charlotte SCRAP PREPARER Unavailable Unavailable [place], L Charlotte SCRAP PREPARER Unavailable Unavailable [place], L Charlotte SCRAP PREPARER Unavailable Unavailable [place], L Charlotte SCRAP PREPARER Unavailable Unavailable [place], L Charlotte SCRAP PREPARER Unavailable Unavailable [place], L Charlotte SCRAP PREPARER Unavailable Unavailable [place], L Charlotte SCRAP PREPARER Unavailable Unavailable [place], L Charlotte SCRAP PREPARER Unavailable Unavailable [place], L Charlotte SCRAP PREPARER Unavailable Unavailable Re-disclosure Warning The records that you are about to access may contain information from federally-assisted alcohol or drug abuse programs. If such information is present, then the following federally mandated warning applies: This information has been disclosed to you from records protected by federal confidentiality rules (42 CFR part 2). The federal rules prohibit you from making any further disclosure of this information unless further disclosure is expressly permitted by the written consent of the person to whom it pertains or as otherwise permitted by 42 CFR part 2. A general authorization for the release of medical or other information is NOT sufficient for this purpose. The Federal rules restrict any use of the information to criminally investigate or prosecute any alcohol or drug abuse patient.The records that you are about to access may contain highly sensitive health information, the redisclosure of which is protected by Article 27-F of the [facility] Public Health law. If you continue you may have access to information: Regarding HIV / AIDS; Provided by facilities licensed or operated by the [facility] Office of Mental Health; or Provided by the [facility] Office for People With Developmental Disabilities. If such information is present, then the following [facility] mandated warning applies: This information has been disclosed to you from confidential records which are protected by state law. State law prohibits you from making any further disclosure of this information without the specific written consent of the person to whom it pertains, or as otherwise permitted by law. Any unauthorized further disclosure in violation of state law may result in a fine or halfway sentence or both. A general authorization for the release of medical or other information is NOT sufficient authorization for further disc losure. Family History Family Member Name Family Member Gender Family Member Status Date o f Status Description Data Source(s) Unknown Unknown Problem [facility] ([facility]) Unknown Unknown Problem [facility] ([facility]) Encounters Encounter Providers Location Date Indications Data Source(s ) Outpatient Attender: Suzette Kirby [place]rer[place] [facility] 05/29/2020 01:16:26 PM EST [facility] Recurring Patient Attender: Suzette BONILLA eferrer: [place] [facility] 05/29/2020 11:59:04 AM EST [facility] Recurring Patient Referrer: ANDREI BOOTH ([place]) [facility] 05/28/2020 03:34:31 PM EST [facility] Recurring Patient Referrer: ANDREI BOOTH ([place]) [facility] 05/22/2020 06:35:10 AM EST [facility] Outpatient [email or web address] 05/15/2020 12:00:00 AM EST [facility] Recurring Patient Referrer: ANDREI BOOTH ([place]) [facility] 05/12/2020 09:23:27 AM EST [facility] Outpatient Attender: SCOTT De Jesus/Beth/Robert/Mumtaz pearl 04/15/2020 09:00:00 AM EST [facility] ([facility]) Outpatient Attender: Parvin Burdick NP [email or web address] 020 12:00:00 AM EST - 04/14/2020 09:47:29 AM EST [facility] Outpatient [address] [facility] [address] 04/01/2020 12:00:00 AM EST eCW1 (Pending sale to [facility]) Unknown [address] [facility] [place] [address] 03/21/2020 12:00:00 AM EST eCW1 (Pending sale to [facility]) Unknown [address] [facility] [address] 03/13/2020 12:00:00 AM EST eCW1 (Pending sale to [facility]) Outpatient Referrer: Parvin [email or web address].CT 02/26/2020 12:00:00 AM EDT [facility] Outpatient [address] [place] [address] 02/25/2020 12:00:00 AM EDT eCW1 (Pending sale to [facility]) Outpatient Attender: Parvin [email or web address].[email or web address] 020 12:00:00 AM EDT - 02/19/2020 11:57:26 AM EDT [facility] Outpatient Attender: Michelle RAMOSMAIKOL-[email or web address].MAIKOL 10/01 12:00:00 AM EDT [facility] Outpatient Attender: Charlotte De Jesus/Beth/Robert/Rogelio 08/21/2019 02:30:00 PM EDT [facility] ([facility]) [address] [address] 08/20/2019 12:00:00 AM EDT eCW1 (Pending sale to [facility]) [address] [address] 08/17/2019 12:00:00 AM EDT eCW1 (Pending sale to [facility]) [address] [address] 08/03/2019 12:00:00 AM EDT eCW1 (Pending sale to [facility]) Outpatient Attender: Charlotte Ashraf NP Main Office 07/24/2019 01:00:00 PM EDT [facility] ([facility] [address] [address] 07/13/2019 12:00:00 AM EDT eCW1 (Pending sale to [facility]) Outpatient Referrer: Michelle RAMOSMAIKOL-[email or web address].MAIKOL 07/2019 12:00:00 AM EST [facility] [place] [address] [place] [address] 06/26/2019 12:00:00 AM EST eCW1 (Pending sale to [facility]) Outpatient Attender: Michelle Kent MDConsultant: Arabella [email or web address].MAIKOL 06/07/2019 02:43:57 PM EST - 06/07/2019 04:05:52 PM EST [facility] [place] [address] [facility], [facility] [address] 06/05/2019 12:00:00 AM EST eCW1 (Pending sale to [facility]) [facility] [place] [address] [facility] [address] 06/05/2019 12:00:00 AM EST eCW1 (Pending sale to [facility]) Outpatient [address] [facility] [address] 05/10/2019 12:00:00 AM EST eCW1 (Pending sale to [facility]) [facility] [place] [address] [facility] [address] 05/08/2019 12:00:00 AM EST eCW1 (Pending sale to [facility]) Immunizations Vaccine Date Status Description Data Source(s) INFLUENZA VIRUS VACCINE QUADRIVAL 2657-3169(6 MOS AND UP)/PF 01/09/2020 12:00:00 AM EDT completed [facility] Medications Medication Brand Name Start Date Product Form Dose Route Admi nistrative Instructions Pharmacy Instructions Status Indications Reaction Description Data Source(s) POLYETHYLENE GLYCOL 3350 142 MG/ML Oral Solution [Miralax] M iralax 04/15/2020 12:00:00 AM EST active M EDENT ([facility], ) magnesium citrate 58.2 MG/ML Oral Solution Magnesium Citrate 04/15/2020 12:00:00 AM EST active [facility] ([facility], ) meloxicam 15 MG Oral Tablet meloxicam (MOBIC) 15 MG ta blet meloxicam (MOBIC) 15 MG tablet 04/01/2020 12:00:00 AM EST 15 mg Oral active Take 15 mg by mouth daily [facility] atorvastatin 40 MG Oral Tablet atorvastatin (LIPITOR) 40 MG tablet atorvastatin (LIPITOR) 40 MG tablet 04/01/2020 12:00:00 AM EST 40 mg Oral active Take 40 mg by mouth daily [facility] atorvastatin 40 MG Oral Tablet Atorvastatin Calcium 40 MG Atorvastatin Calcium 40 MG 04/01/2020 12:00:00 AM EST 1.0 {tablet} activ e Atorvastatin Calcium 40 MG eCW1 ([facility]) 15 mg 04/01/2020 12:00:00 AM EST tablet 90 TAKE ONE TABLET BY MOUTH EVERY DAY TAKE ONE TABLET BY MOUTH EVERY DAY SOLD: 04/01/2020 [facility] atorvastatin 40 MG Oral Tablet ATORVASTATIN CALCIUM 04/01/2020 1 2:00:00 AM EST tablet 90 TAKE ONE TABLET BY MOUTH EVERY D AY TAKE ONE TABLET BY MOUTH EVERY DAY SOLD: 04/01/2020 [facility] meloxicam 15 MG Oral Tablet Meloxicam 15 MG Meloxicam 15 MG 04/01/2020 12:00:00 AM EST 1.0 {tablet} active Meloxicam 1 5 MG eCW1 ([facility]) Metoprolol Tartrate 50 MG Oral Tablet me toprolol tartrate (LOPRESSOR) 50 MG tablet metoprolol tartrate (LOPRESSOR) 50 MG tablet 02/21/2020 12:0 0:00 AM EDT active One tablet by [facility] the night before and morning of the procedure [facility] 50 mg 02/21/2020 12:00:00 AM EDT tablet 2 TAKE ONE TABLET BY MOUTH THE NIGHT BEFORE AND MORNING OF THE PROCEDURE TAKE ONE TABLET BY MOUTH THE NIGHT BEFOR E AND MORNING OF THE PROCEDURE SOLD: 02/22/2020 [facility] 10 mg 10/23/2019 12:00:00 AM EDT tablet 12 TAKE ONE TABLET BY MOUTH EVERY 6 HOURS NEEDED FOR PAIN TAKE ONE TABLET BY MOUTH EVERY 6 HOURS A S NEEDED FOR PAIN SOLD: 10/23/2019 [facility] CPAP 08/23/2019 12:00:00 AM EDT active [facility] ([facility]) Ibuprofen 200 MG Oral Tablet ibuprofen (ADVIL,MOTRIN) 200 MG tablet ibuprofen (ADVIL,MOTRIN) 200 MG tablet 200 mg Oral aborted Take 200 mg by mouth every 6 (six) hours as needed for pain [facility] Insurance Providers Payer name Policy type / Coverage type Policy ID Covered constitution party ID Covered constitution party's relationship to major Policy Major Plan Information MEDICARE COMPLETE [id number] SP [id number] [employer] Medicare Complete F [id number] SELF [id number] MEDICARE COMPLETE [id number] SP [id number] [employer] MEDICARE [id number] Lela [id number] [employer] Medicare Complete F [id number] SELF [id number] [employer] MEDICARE [id number] MEDICARE COMPLETE [id number] SP [id number] [facility] [id number] SP [id number] [facility] [id number] SP [id number] ANSI-Medicare Part B [id number] ANSI-Medicare Part B [id number] United HLCR/Medicare Solu Commercial [id number] Self [id number] [employer] [id number] SP [id number] MEDICARE COMPLETE [id number] SP [id number] [employer] [id number] SP [id number] United HLCR/Medicare Solu Commercial [id number] Self [id number] United HLCR/Medicare Solu Commercial [id number] Self [id number] United HLCR/Medicare Solu Commercial [id number] Self [id number] UNITED [facility] MGD MEDICARE [id number] SP [id number] [employer] P [id number] S [id number] [employer] [id number] SP [id number] [employer] P [id number] S [id number] Problems, Conditions, and Diagnoses Code Display Name Description Problem Type Effective Dates Data Source(s) E78.5 Hyperlipidemia Hyperlipidemia [id number] 04/14/2020 12:00: 00 AM EST [facility] I25.10 Coronary artery disease Coronary artery disease 756973 01 04/14/2020 12:00:00 AM EST [facility] E78.2 [id number] Mixed hyperlipidemia Problem 04/01/2020 12:0 0:00 AM EST eCW1 ([facility]) G89.29 [id number] Other chronic pain Problem 02/25/2020 12:00: 00 AM EDT eCW1 ([facility]) R20.2 [id number] Bilateral leg paresthesia Problem 02/25/2020 12:00:00 AM EDT eCW1 ([facility]) I77.810 Ascending aorta dilatation Ascending aorta dilatation [id number] 10/23/2019 12:00:00 AM EDT [facility] [id number] Obstructive sleep apnea syndrome Obstructive sle ep apnea syndrome Problem 08/21/2019 12:00:00 AM EDT [facility] ([facility]e ) I77.810 [id number] Ascending aorta dilatation Problem 0 12:00:00 AM EDT eCW1 ([facility]) I77.810 947675952 Dilated aortic root Problem 08/20/2019 12:00 :00 AM EDT eCW1 ([facility]) I77.810 [id number] Ascending aorta dilatation Problem 0 12:00:00 AM EDT eCW1 ([facility]) 38747592 Sleep apnea Sleep apnea Problem 07/24/2019 12:00:00 AM EDT [facility] ([facility] 2165859 Disturbance of consciousness Disturbance of consciousn ess Problem 07/24/2019 12:00:00 AM EDT [facility] ([facility] 236697680 Difficulty breathing Difficulty breathing Problem 07/24/2019 12:00:00 AM EDT [facility] ([facility] F43.22 [id number] Adjustment disorder with anxiety Problem 06/28/2019 12:00:00 AM EST eCW1 ([facility]) F43.22 [id number] Adjustment disorder with anxiety Problem 06/28/2019 12:00:00 AM EST eCW1 ([facility]) G47.33 JUAN (obstructive sleep apnea) JUAN (obstructive sleep a pnea) [id number] 06/07/2019 12:00:00 AM [facility] R94.31 Abnormal EKG Abnormal EKG [id number] 06/06/2019 12:00:00 A M [facility] R40.0 [id number] Daytime somnolence Problem 06/05/2019 12:0 0:00 AM EST eCW1 ([facility]) E78.5 Hyperlipidemia, unspecified Hyperlipidemia, unspecifie d Diagnosis 04/14/2020 09:15:26 AM [facility] R07.89 Other chest pain Other chest pain Diagnosis 04/14/2020 09 :15:26 AM [facility] I77.810 Thoracic aortic ectasia Thoracic aortic ectasia Diagno sis 04/14/2020 09:15:26 AM [facility] R94.31 Abnormal electrocardiogram [ECG] [EKG] A bnormal electrocardiogram (ECG) (EKG) Diagnosis 04/14/2020 09:15:26 AM [facility] I25.10 Atherosclerotic heart diseas e of [place] coronary artery without angina pectoris Atherosclerotic heart disease of [place] Diagnosis 04/14/2020 09:15:26 AM [facility] K58.0 Irritable bowel syndrome with diarrhea I rritable bowel syndrome with diarrhea Diagnosis 02/19/2020 11:17:20 AM EDT [facility] G47.33 Obstructive sleep apnea (adult) (pediatr ic) Obstructive sleep apnea (adult) (pediatr Diagnosis 10/23/2019 09:35:07 AM EDT [facility] R07.2 Precordial pain Precordial pain Diagnosis 06/07/2019 02:4 3:57 PM [facility] Surgeries/Procedures Procedure Description Date Indications Data Source(s) Office Visit, Est Pt., Level 4 PC 08/20/2019 12:00:00 AM EDT eCW1 ([facility]) Office Visit, Est Pt., Level 2 FC 08/20/2019 12:00:00 AM EDT eCW1 ([facility]) NO CHARGE VISIT 08/17/2019 12:00:00 AM EDT eCW1 ([facility]) PSYTX W PT 45 MINUTES 08/03/2019 12:00:00 AM EDT eCW1 ([facility]) PSYCH DIAGNOSTIC EVALUATION 06/26/2019 12:00:00 AM EST eCW1 ([facility]) Office Visit, Est Pt., Level 3 PC 06/05/2019 12:00:00 AM EST eCW1 ([facility]) Results ID Date Data Source [id number] 05/29/2020 01:16:26 PM EST [facility], PCName: Kasandra NettlesOB: 1955Provider: Consuelo Kirby: 05/29/2020 Chief ComplaintChronic low back pain. [facility] Treatment [facility] Patient has signed a [facility] Controlled Substance and Treatment Agreement. Patient has been given a copy of the treatment agreement and has been given a copy of our Prescription Information Fact Sheet. Do you have a Brace for your condition? Patient does not have a brace for their condition. Do you have a TENS Unit for your condition? Patient currently does have a TENS Unit for their condition and does NOT utilize it. Supplements: Patient is not currently taking any supplements. Nerve Conduction: Patient has not had a Nerve Conduction Test. At today's visit patient presents with their Self Implanted Devices The patient does not have any implanted devices. The patient does not have a glucose monitoring device. Patient is not currently working. The patient is being seen for an initial evaluation. The date of onset of symptoms is approximately 10+ years. Pain Quality: (Neuropathic) numbness and pins and needles Pain Quality: (Nociceptive) aching and sharp Timing: constant Palliation: sitting Exacerbating: standing and walking Pain Score: a current pain level of 8/10, a minimum pain level of 5/10 and a maximum pain level of 10/10. Condition type: The patient is being seen for a chronic condition. PAIN LOCATION: the pain is located in the low back and . The etiology of this injury/condition is unknown. RELATIONSHIP TO INJURY: This condition is not related to a specific injury. PAST EVALUATION: The patient has been previously evaluated by a primary care provider . Provider records were obtained, reviewed and on file. REVIEW OF PAST DIAGNOSTICS: have included: MRI . Records were obtained, reviewed and on file. PAST TREATMENT has included: ANTICONVULSANTS (not effective) (caused severe depression) Includes Gabapentin and Lyrica., MUSCLE RELAXANTS (not effective) Includes Cyclobenzaprine , Tizanidine and Skelaxin., NON-OPIOID ANALGESICS (not effective) Includes Tylenol., NONSTEROIDAL ANTI-INFLAMMATORY drugs (not effective) Includes Ibuprofen, Mobic and Naproxen., PHYSICAL THERAPY/HOME EXERCISE exercise (not effective). Review of SystemsConstitutional: Normal. Eyes: eyesight problems. ENT: normal. Cardiovascular: Normal. Respiratory: Normal. Gastrointestinal: Normal. Genitourinary: Normal. Musculoskeletal: Normal. Integumentary: Normal. Neurological: Normal. Psychiatric: Normal. Endocrine: Normal. Hematologic/Lymphatic: Normal. 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 See initial patient paperwork dated 05/29/2020. I reviewed the above with the patient and I feel the ROS to be negative/normal. AllergiesDenied Adhesive Tape Recorded By: Yennifer Alejo; 05/29/2020 12:29:53 PM Iodinated Contrast Media Recorded By: Yennifer Alejo; 05/29/2020 12:29:53 PM Latex Recorded By: Yennifer Alejo; 05/29/2020 12:29:53 PM Current Meds Atorvastatin Calcium TABS;Therapy: (Recorded:29May2020) to Recorded Dispense: 0 Days ; #: Sufficient; Refill: 0;For: SocHx: Current smoker on some days; SAVAGE = N; Record; Last Updated By: Yennifer Alejo; 05/29/2020 12:29:53 PM Meloxicam TABS;Therapy: (Recorded:29May2020) to Recorded Dispense: 0 Days ; #: Sufficient; Refill: 0;For: SocHx: Current smoker on some days; SAVAGE = N; Record; Last Updated By: Yennifer Alejo; 05/29/2020 12:29:53 PM Past Medical History Denied: History of Clotting disorder History of arthritis (V13.4) (Z87.39) Denied: History of bleeding disorder History of kidney disease (V13.09) (Z87.448) History of neck pain (V13.59) (Z87.39) Surgical History Denied: History of Cardioverter defibrillator insertion Denied: History of Permanent pacemaker insertion Social History Current smoker on some days (305.1) (F17.200) 2-5 cigs a day when stressed 2020 Denies alcohol consumption (V49.89) (Z78.9) Marijuana No illicit drug use Unemployed, not looking for work VitalsVital Signs Recorded: 29May2020 12:25PM Height: 6 ft Weight: 358 lb BMI Calculated: 48.55BSA Calculated: 2.73Systolic: 124, SittingDiastolic: 84, SittingHeart Rate: 60Respiration: 16Temperature: 96.9 FHeight measured w/wo shoes: w/shoesPain Scale: 8Depression: 5ORT: LR Physical ExamGeneral: The patient is a well nourished/well developed, male, heavy set, who is in no acute distress and appears stated age. Eyes: Lids are atraumatic, no lesions, sclerae are anicteric. Ears, Nose, Mouth, Throat: Patient wearing a mask due to COVID-19. Respiratory: Normal chest expansion and respiratory effort. Gait and Station: Gait was normal. Skin: Warm, dry, acyanotic. Psychological: Alert and oriented to person, place and time. Mood and affect are pleasant and appropriate. Judgement intact. Insight normal without delusions or hallucinations. Denies suicidal/homicidal ideation. Assessment 1. Chronic low back pain (724.2,338.29) (M54.5,G89.29) PlanNo Citations Medication:. The patient does not receive any medication prescriptions from this office. Treatment includes: PROCEDURE(S): The patient defers blocks/procedures at this time THERAPIES: Therapy Treatment Plan: Deferred: All Therapies: Deferred: per patient request. FOLLOW UP: The patient will call for a follow up visit. CONTINUE TREATMENT: Kasandra will continue with the following:. Patient will follow up with their PCP. PHQ-9 Patient's PHQ-9 score was 5-9 suggesting a Mild level of Depression. No further plan is required at this time. The PHQ-9 was administered today as part of routine health risk screening for depression and psychosocial functioning. Screening for depression in chronic pain patients is standard of care due to the high rate of co-morbidity between these illnesses. In conjunction with other health risk assessment screening data, such as the Opioid Risk Tool and Visual Analogue Scale, this information is imperative for determining the patients risk factors and potential comorbidities prior to determining a safe and effective treatment plan. - CRIMINOLOGY TEACHER: The patient was counseled on the following: treatment plan and future treatment options. Discussion/SummaryPatient chronic low back pain fr over 10 years, referred by the PCP for initial evaluation and treatment. The pain radiates into his legs, causing numbness into his legs and feet. He states it is difficult to walk or stand longer than 5 minutes. He will experience numbness in his legs with sitting, but less pain in his back. At night, he does not sleep well due to the pain. He has been on Meloxicam for about 1 month with no noticeable relief. He went to physical therapy about 10 years ago and this constantly caused him to be in more pain when he left. He has had nerve blocks over 10 years ago and these were ineffective. He defers wanting to try this again. He smokes daily, but has quite a couple times in the past but when he gets stressed out, he will start smoking again. He occasionally used recreational marijuana and this does help with the pain. He is interested in medical cannabis. We discussed this in detail today. A referral was made for certification. Patient defers other treatment at this time, and will call for follow up if he changes his mind. Signatures Electronically signed by : FABIAN Lee; May 29 2020 1:03PM EST (Author) Electronically signed by : Juan M Aaron MD; May 29 2020 1:16PM EST Name Value Range Interpretation Code Description Data Destini rce(s) Supporting Document(s) ID Date Data Source [id number] 02/26/2020 09:58:10 AM EDT [address] [id number] Name: KASANDRA NETTLESOB: 1955Sex: MOrdering Provider: PARVIN Calles Prov: PARVIN Zarateerropal Provider: Procedure Performed: SJP CT LUNG ONLY CARDIOExam Date: 02/26/2020 09:39MRN: [id number] Number: [id number] Class: UnknownAccount #: [id number] for Exam: Irritable bowel syndrome with diarrheaTechnique: Helical axial images were obtained during the administration 100ml of Isovue 370 IV contrast.One or more of the following dose reduction techniqueswere utilized; automated exposure control, dose modulation, technique adjustment based on patient size and iterativereconstruction algorithms.Comparison: NoneFindings: Lungs are clear. Heart size normal. No pericardial effusion. No bulky mediastinal/hilar adenopathy. No calcific atherosclerotic disease. Chest wall and lower neck are within normal limits. No acute findings in the upper abdomen. Degenerative changes in the spine.IMPRESSION: No acute findings. No calcific atherosclerotic disease.Report electronically signed by: Nitin Ernst On 02/26/2020 9:58 AMWorkstation ID: [id number] Name Value Range Interpretation Code Description Data Destini rce(s) Supporting Document(s) ID Date Data Source [id number] 02/26/2020 09:54:40 AM EDT [facility] This is a summary report. The complete r eport is available in the patient's medical record. If you cannot access the medical record, please contact the sending organization for a detailed fax or copy.This patient has a total Calcium Score of 51.24This places the patient into the 48 th percentile in comparison to a group of patients asymptomatic for coronary artery disease with the same age and gender.Coronary artery calcification the proximal and mid LAD only.Left main is normal without plaque.Left anterior descending proximal and mid with calcified plaque in the mid with noncalcified plaque but no obstructive lesions.Left circumflex normal without plaqueDominant right coronary artery normal without plaque. Intact ejection fraction. Name Value Range Interpretation Code Description Data Destini rce(s) Supporting Document(s) ID Date Data Source LIPID PANEL (CARDIAC RISK) 02/25/2020 04:39:54 AM EDT eCW1 ( [facility]) Name Value Range Interpretation Code Description Data Destini rce(s) Supporting Document(s) Triglyceride [Mass/volume] in Serum or Plasma by calculation 204 TRIGLYCERIDES LEVEL eCW1 ([facility]) Cholesterol in HDL [Moles/volume] in Serum or Plasma 45 HDL CHOLESTEROL eCW1 ([facility]) Cholesterol [Moles/volume] in Serum or Plasma 229 CHOLESTEROL LEVEL eCW1 ([facility]) 184 NON-HDL-C eCW1 ([facility]) Cholesterol in LDL [Mass/volume] in Serum or Plasma by calculation 143 LDL CHOLESTEROL eCW1 ([facility]) 5.088 CHOLESTEROL RISK RATIO eCW1 ([facility]) ID Date Data Source [id number] 02/25/2020 04:39:54 AM EDT eCW1 ([facility]) Name Value Range Interpretation Code Description Data Destini rce(s) Supporting Document(s) Hemoglobin A1c/Hemoglobin.total in Blood 5.3 HEMOGLOBIN A1c eCW1 ([facility]) ID Date Data Source Comprehensive Metabolic Profile (CMP) 02/25/2020 04:39:54 AM EDT eCW1 ([facility]) Name Value Range Interpretation Code Description Data Destini rce(s) Supporting Document(s) 14 BLOOD UREA NITROGEN eCW1 ([facility]) 85 GLUCOSE, FASTING eCW1 ([facility]) 139 SODIUM LEVEL eCW1 ([facility]) 0.90 CREATININE FOR GFR eCW1 ([facility]) > 60.0 GLOMERULAR FILTRATION RATE eCW 1 ([facility]) 4.3 POTASSIUM SERUM eCW1 ([facility]) 105 CHLORIDE LEVEL eCW1 ([facility]) 9.8 CALCIUM LEVEL eCW1 ([facility]) 29 CARBON DIOXIDE LEVEL eCW1 ([facility]) 24 AST/SGOT eCW1 ([facility]) 98 ALKALINE PHOSPHATASE eCW1 ([facility]) 0.5 BILIRUBIN,TOTAL eCW1 ([facility]) 36 ALT/SGPT eCW1 ([facility]) 7.9 TOTAL PROTEIN eCW1 ([facility]) 4.3 ALBUMIN eCW1 ([facility]) 1.2 ALBUMIN/GLOBULIN RATIO eCW1 ([facility]) ID Date Data Source CBC with Differential 02/25/2020 04:39:54 AM EDT eCW1 ([facility]) Name Value Range Interpretation Code Description Data Destini rce(s) Supporting Document(s) 7.6 WHITE BLOOD COUNT eCW1 ([facility]) 5.73 RED BLOOD COUNT eCW1 ([facility]) 17.2 HEMOGLOBIN eCW1 ([facility]) 30.0 MEAN CORPUSCULAR HEMOGLOBIN eC W1 ([facility]) 92.0 MEAN CORPUSCULAR VOLUME eCW1 ( [facility]) 52.7 HEMATOCRIT eCW1 ([facility]) 32.6 MEAN CORPUSCULAR HGB CONC eCW1 ([facility]) 208 PLATELET COUNT, AUTOMATED eCW1 ([facility]) 54.1 NEUTROPHILS % eCW1 ([facility]) 14.3 RED CELL DISTRIBUTION WIDTH eC W1 ([facility]) 7.9 MONO % eCW1 ([facility]) 35.6 LYMPH % eCW1 ([facility]) 1.4 EOS % eCW1 ([facility]) 0.7 BASO % eCW1 ([facility]) 0.6 MONO # eCW1 ([facility]) 4.1 NEUTROPHILS # eCW1 ([facility]) 2.7 LYMPH # eCW1 ([facility]) 0.1 EOS # eCW1 ([facility]) 0.1 BASO # eCW1 ([facility]) ID Date Data Source [id number] 07/03/2019 01:08:52 PM EST [facility] Name Value Range Interpretation Code Description Data Destini rce(s) Supporting Document(s) &PDF [facility] SDNJMy5eMuXPLpDl75/KZAqdNTHwn6LxJGxhKNi4DXdgWHJeV8FqkXceZXRRYU4NB00nGCWBWA0kDl7a jI [file] 4Npf+kmvRCFCG6xk6rZuR4NhIRphm4Of/7BT+FfO6eCq2UGUoYfX+Gpv9xLj4v2d/VlF/P5pwvDm+crime specialist [file] AgICAgICAgICAgICAgICAgICAgICAgICAgICAgICAg ICAgICAgICAgICAgICAgICAgICAgICAgICAgICAgICAgICAgICANCiAgICAgICAgICAgICAgICAgICAg ICAgICAgICAgICAgICAgICAgICAgICAgICAgICAgICAgICAgICAgICAgICAgICAgICAgICAgICAgICAg ICAgICAgICAgICAgICAgICAgICANCiAgICAgICAgIC AgICAgICAgICAgICAgICAgICAgICAgICAgICAgICAgICAgICAgICAgICAgICAgICAgICAgICAgICAgIC AgICAgICAgICAgICAgICAgICAgICAgICAgICAgICANCiAgICAgICAgICAgICAgICAgICAgICAgICAgIC AgICAgICAgICAgICAgICAgICAgICAgICAgICAgICAg ICAgICAgICAgICAgICAgICAgICAgICAgICAgICAgICAgICAgICAgICANCiAgICAgICAgICAgICAgICAg ICAgICAgICAgICAgICAgICAgICAgICAgICAgICAgICAgICAgICAgICAgICAgICAgICAgICAgICAgICAg ICAgICAgICAgICAgICAgICAgICAgICANCiAgICAgIC AgICAgICAgICAgICAgICAgICAgICAgICAgICAgICAgICAgICAgICAgICAgICAgICAgICAgICAgICAgIC AgICAgICAgICAgICAgICAgICAgICAgICAgICAgICAgICANCiAgICAgICAgICAgICAgICAgICAgICAgIC AgICAgICAgICAgICAgICAgICAgICAgICAgICAgICAg ICAgICAgICAgICAgICAgICAgICAgICAgICAgICAgICAgICAgICAgICAgICANCiAgICAgICAgICAgICAg ICAgICAgICAgICAgICAgICAgICAgICAgICAgICAgICAgICAgICAgICAgICAgICAgICAgICAgICAgICAg ICAgICAgICAgICAgICAgICAgICAgICAgICANCiAgIC AgICAgICAgICAgICAgICAgICAgICAgICAgICAgICAgICAgICAgICAgICAgICAgICAgICAgICAgICAgIC AgICAgICAgICAgICAgICAgICAgICAgICAgICAgICAgICAgICANCiAgICAgICAgICAgICAgICAgICAgIC AgICAgICAgICAgICAgICAgICAgICAgICAgICAgICAg ICAgICAgICAgICAgICAgICAgICAgICAgICAgICAgICAgICAgICAgICAgICAgICANCjw/eEPaS3iyjHAg bcL3P3clVt2OBy1IJJ6cy0VkLCXzEFfoqaYoFjcEApDbWFPaTbmNMyy5RPkmCL7BeXPnU1FuL6GrUJzd JN1JXXObIMGzkAKtACMvUTYbPxD0TXVjNYhwGN3GyY KuZYhwRIKiXKHmKiVhMJPmBH2YKGIdS672hoTtSs6GIb3VJyZbDL1fup4IMqKdBRPsSeiRDth8AMrzEU 8XvPIoL2ItmGUaz7tYNcIfX9BURUL1DKLxAu7LBGQzJaCeEIKzZUxgKA0eDRPxRCKQoNeizeH1IW0YLD 2nmaMwVQ2JWsXdNb7mZe6HEaIkD9FnQ0ExEDYjXCCL YJhdMF7GNPDdNSV5GUWfHCPmHNEVZkPdA03cQX4JS7Hzd55zNuI0KUHaFlFcCSdyXW94wSfpitQxeQJy xTvxQP7YFb7+DFtzfoCuQxzVCunrPURJWkYeRqLLNsTmJVVsDPWiPWYeZjJ7YpXzCd9AALFcAEWaUYKu DdNgGKUbKTCvTPgjYGRqGGI4HjR1ZYAlBKKrYW1GGc YaQGZaWEg9NYBdBQJjQIHxgx5AGECfLJJqXAT2CsXpAWTrLHNlKRmiQZOoMQDpDTN4KUViRHXpIJ4PKu PcIWUpYTO0VZhyPNJqMECcqb4LOOTxHMKfRTx8CFOyMXTiWCPoKOldYJLoGPR4UShjBPOlPBQoEF5BZe QcQCRiBHI0GvUrSWTtXULkuy0PSKWkZPHrQhZiNxOt EBSzBNAtKLszOKWqEBV7JjY6VSYtVTKfRT9OLmAmABYrPGkqUpyaTWFrGPFxqw3AWNUpPCCmQmR6AWTh SQQpWCBvIGduTLZxLOF5MuZ1KYHuZUXaNH1BZxOwYRAoTCv2VQCmSAIyFIImzw4RCCKwBYVrBAjbDfJn ZRPoSNCxIHezDSGvLWV2CUQtSTIlPRMcAB4AGhGuXY JhZXU2VJQlGUHzPRUsqp3OPSEhMPAvGzfrOwWoUGRpHUOkXHzcXVCqZZQ7IJWbEZWbDPRpFR0IRlBpRS JiLAm8NHbyKJZnCXCwum3GeGSfmYvery1DRRgFZk0HtOpkLCZcVLdvFe9tuSPiXIGcUWHGZp5OtwCfMA SfRMOKAFlcXAVeKAEvHdMtPOC0TVtrDqrgAcXmBSSh UBT0BRUyXhFpI6ZvQhT9GfYeNQHcFVZtLnH0B9DvSoYrDDA6AocaKfHyAGElVLO+ZG1yMHf+Rw0Rq1Dh skM7ckQnTPxqKLd6LO1STMXUF8HIHn== Procedure Social History Code Duration Value Status Description Data Source(s ) Smoking 04/01/2020 12:00:00 AM EST Current Smoker completed Curre nt Smoker eCW1 ([facility]) Alcohol intake 02/26/2020 12:00:00 AM EDT Never completed [facility] Cigarette pack-years 02/26/2020 12:00:00 AM EDT UNK completed [facility] Cigarettes smoked current (pack per day) - Reported 02/26/20 12:00:00 AM EDT UNK completed [facility] Smoking 02/26/2020 12:00:00 AM EDT Former smoker completed Former smoker [facility] Smoking 02/25/2020 12:00:00 AM EDT Current Smoker completed Curre nt Smoker eCW1 ([facility]) Smoking 02/25/2020 12:00:00 AM EDT Current Smoker completed Curre nt Smoker eCW1 ([facility]) Smoking 02/25/2020 12:00:00 AM EDT Current Smoker completed Curre nt Smoker eCW1 ([facility]) Smoking 10/11/2019 12:00:00 AM EDT - 11/30/2018 12:00:00 AM EDT Patient is a former smoker completed Patient is a former smoker [facility] ([facility]) Vital Signs ID Date Data Source UNK Name Value Range Interpretation Code Description Data Source(s) Body surface area Derived from formula 2.72 [address] [facility] ([facility]) Body weight 165.564 kg 165.[address] [facility] ([facility]) [place] body weight 172 [lb_av] 172 [lb_av] MEDEN T ([facility]) Body mass index (BMI) [Ratio] 50.9 kg/m2 50.9 k g/m2 [facility] ([facility]) Body weight 365.00 [lb_av] 365.00 [lb_av] VINI T ([facility], ) Body height 71 [in_i] 71 [in_i] JESSICALEANNE ([facility], ) 5'11" Diastolic blood pressure 80 mm[Hg] 80 mm[Hg] JESSICALEANNE ([facility], ) Systolic blood pressure 124 mm[Hg] 124 mm[Hg] Cesia LUNA ([facility], ) Body mass index (BMI) [Ratio] 49.37 kg/m2 49.37 kg/m2 [facility] Body weight 165.109 kg 165.109 kg [facility] Body height 182.9 cm 182.9 cm [facility] Respiratory rate 16 /min 16 /min [facility] Diastolic blood pressure 76 mm[Hg] 76 mm[Hg] eCW1 ([facility]) Systolic blood pressure 138 mm[Hg] 138 mm[Hg] e CW1 ([facility]) Body temperature 97.5 [degF] 97.5 [degF] eCW1 ( [facility]) Respiratory rate 18 /min 18 /min eCW1 ([facility]) Heart rate 83 /min 83 /min eCW1 ([facility]) Body mass index (BMI) [Ratio] 49.10 kg/m2 49.10 kg/m2 W1 ([facility]) Body height [in_i] eCW1 ([facility]) Body weight 372.2 [lb_av] 372.2 [lb_av] eCW1 ([facility]) Diastolic blood pressure 90 mm[Hg] 90 mm[Hg] eCW1 ([facility]) Systolic blood pressure 140 mm[Hg] 140 mm[Hg] e CW1 ([facility]) Body temperature 97.2 [degF] 97.2 [degF] eCW1 ( [facility]) Respiratory rate 18 /min 18 /min eCW1 ([facility]) Heart rate 84 /min 84 /min eCW1 ([facility]) Body mass index (BMI) [Ratio] 48.23 kg/m2 48.23 kg/m2 eCW1 ([facility]) Body height [in_i] eCW1 ([facility]) Body weight 365.6 [lb_av] 365.6 [lb_av] eCW1 ([facility]) Body surface area Derived from formula 2.73 m2 [address] [facility] ([facility]) Body weight 166.471 kg [address] [facility] ([facility]) [place] body weight 172 [lb_av] 172 [lb_av] [facility] Body mass index (BMI) [Ratio] 51.2 kg/m2 51.2 k g/m2 [facility] ([facility]) Body weight 367.00 [lb_av] 367.00 [lb_av] [facility] Body height 71 [in_i] 71 [in_i] [facility] ([facility]) 5'11" Body temperature 97.2 [degF] 97.2 [degF] [facility] ([facility]) Oxygen saturation in Arterial blood by Pulse oximetry 95 % 95 % [facility] ([facility]) Heart rate 66 /min 66 /min [facility] ([facility]) Diastolic blood pressure 80 mm[Hg] 80 mm[Hg] [facility] ([facility]) Systolic blood pressure 130 mm[Hg] 130 mm[Hg] [facility] Body weight 170.554 kg [address] [facility] ([facility]) Body mass index (BMI) [Ratio] 52.4 kg/m2 52.4 k g/m2 [facility] ([facility]) Body weight 376.00 [lb_av] 376.00 [lb_av] [facility] Body height 71 [in_i] 71 [in_i] [facility] ([facility]) 5'11" Body temperature 98.4 [degF] 98.4 [degF] [facility] ([facility], ) Oxygen saturation in Arterial blood by Pulse oximetry 96 % 96 % [facility] Heart rate 98 /min 98 /min [facility] ([facility], ) Diastolic blood pressure 78 mm[Hg] 78 mm[Hg] [facility] ([facility], ) Systolic blood pressure 124 mm[Hg] 124 mm[Hg] M EDENT ([facility], ) Diastolic blood pressure 80 mm[Hg] 80 mm[Hg] eCW1 ([facility]) Systolic blood pressure 142 mm[Hg] 142 mm[Hg] e CW1 ([facility]) Body temperature 96.1 [degF] 96.1 [degF] eCW1 ( [facility]) Respiratory rate 18 /min 18 /min eCW1 ([facility]) Heart rate 79 /min 79 /min eCW1 ([facility]) Body mass index (BMI) [Ratio] 48.52 kg/m2 48.52 kg/m2 W1 ([facility]) Body height [in_us] eCW1 ([facility]) Body weight Measured 367.8 [lb_av] 367.8 [lb_av ] W1 ([facility]) Body mass index (BMI) [Ratio] 49.8 kg/m2 49.8 k g/m2 MED[facility] ([facility] Body weight 357.00 [lb_av] 357.00 [lb_av] MEDEN T ([facility] Body height 71 [in_i] 71 [in_i] [facility] ([facility] 5'11" Oxygen saturation in Arterial blood by Pulse oximetry 98 % 98 % [facility] ([facility] Heart rate 88 /min 88 /min [facility] ([facility] Diastolic blood pressure 80 mm[Hg] 80 mm[Hg] MED[facility] ([facility] Systolic blood pressure 140 mm[Hg] 140 mm[Hg] M EDENT ([facility] Diastolic blood pressure 88 mm[Hg] 88 mm[Hg] eCW1 ([facility]) Systolic blood pressure 140 mm[Hg] 140 mm[Hg] e CW1 ([facility]) Body temperature 98.3 [degF] 98.3 [degF] eCW1 ( [facility]) Respiratory rate 18 /min 18 /min eCW1 ([facility]) Heart rate 80 /min 80 /min eCW1 ([facility]) Body mass index (BMI) [Ratio] 45.64 kg/m2 45.64 kg/m2 eCW1 ([facility]) Body height [in_us] eCW1 ([facility]) Body weight Measured 346 [lb_av] 346 [lb_av] eC W1 ([facility]) Diastolic blood pressure 88 mm[Hg] 88 mm[Hg] eCW1 ([facility]) Systolic blood pressure 142 mm[Hg] 142 mm[Hg] e CW1 ([facility]) Body temperature 97.3 [degF] 97.3 [degF] eCW1 ( [facility]) Respiratory rate 18 /min 18 /min eCW1 ([facility]) Heart rate 93 /min 93 /min eCW1 ([facility]) Body mass index (BMI) [Ratio] 46.46 kg/m2 46.46 kg/m2 eCW1 ([facility]) Body height [in_i] eCW1 ([facility]) Body weight 352.2 [lb_av] 352.2 [lb_av] eCW1 ([facility]) Patient Treatment Plan of Care Planned Activity Planned Date Details Description Data Source (s) atorvastatin 40 MG Oral Tablet 04/01/2020 12:00:00 AM EST [facility] meloxicam 15 MG Oral Tablet 04/01/2020 12:00:00 AM EST [facility] meloxicam 15 MG Oral Tablet 04/01/2020 12:00:00 AM EST eCW1 ([facility]) atorvastatin 40 MG Oral Tablet 04/01/2020 12:00:00 AM EST eCW1 ([facility]) Metoprolol Tartrate 50 MG Oral Tablet 02/21/2020 12:00:00 AM EDT [facility] Ibuprofen 200 MG Oral Tablet [facility]
[2020-06-18 13:59] LABS: BASO % 0.5 % (0.0-1.0); EOS # 0.1 10^3/uL (0.0-0.5); HEMATOCRIT 50.5 % (42.0-52.0); HEMOGLOBIN 16.8 g/dl (13.5-17.5); LYMPH # 1.8 10^3/uL (1.5-5.0); LYMPH % 23.8 % (24.0-44.0); MEAN CORPUSCULAR HEMOGLOBIN 29.8 pg (27.0-33.0); MEAN CORPUSCULAR HGB CONC 33.3 g/dl (32.0-36.5); MEAN CORPUSCULAR VOLUME 89.7 fl (80.0-96.0); MONO # 0.4 10^3/uL (0.0-0.8); MONO % 5.9 % (2.0-8.0); NEUTROPHILS % 68.4 % (36.0-66.0); PLATELET COUNT, AUTOMATED 193 10^3/uL (150-450); RED BLOOD COUNT 5.63 10^6/uL (4.30-6.10); WHITE BLOOD COUNT 7.3 10^3/uL (4.0-10.0)
--- OUTSIDE RECORDS SUMMARY | 2020-06-18 14:18 | CCD ---
Author Author [facility] Organization [facility] Address Unknown Phone Unavailable Care Team Providers Care Senior Technical Recruiter Name Role Phone Michelle Kent MD Unavailable [...] Mirta, Yessi Suzette PA Unavailable Unavailable Mirta, Ysesi Suzette PA Unavailable Unavailable Mirta, Yessi Suzette PA Unavailable Unavailable Mirta, Yessi Suzette PA Unavailable Unavailable Paris, N Parvin TRAVEL ACCOMMODATION INSPECTOR Unavailable Unavailable Gennaro, N Parvin TRAVEL ACCOMMODATION INSPECTOR Unavailable Unavailable Paris, N Parvin TRAVEL ACCOMMODATION INSPECTOR Unavailable Unavailable Paris, N Parvin TRAVEL ACCOMMODATION INSPECTOR Unavailable Unavailable Gennaro, N Parvin TRAVEL ACCOMMODATION INSPECTOR Unavailable Unavailable Gennaro, N Parvin TRAVEL ACCOMMODATION INSPECTOR Unavailable Unavailable Gennaro, N Parvin TRAVEL ACCOMMODATION INSPECTOR Unavailable Unavailable Gennaro, N Parvin TRAVEL ACCOMMODATION INSPECTOR Unavailable Unavailable Paris, N Parvin TRAVEL ACCOMMODATION INSPECTOR Unavailable Unavailable Gennaro, N Parvin TRAVEL ACCOMMODATION INSPECTOR Unavailable Unavailable Paris, N Parvin TRAVEL ACCOMMODATION INSPECTOR Unavailable Unavailable Paris, N Parvin TRAVEL ACCOMMODATION INSPECTOR Unavailable Unavailable Paris, N Parvin TRAVEL ACCOMMODATION INSPECTOR Unavailable Unavailable Paris, N Parvin TRAVEL ACCOMMODATION INSPECTOR Unavailable Unavailable Gennaro, N Parvin TRAVEL ACCOMMODATION INSPECTOR Unavailable Unavailable Gennaro, N Parvin TRAVEL ACCOMMODATION INSPECTOR Unavailable Unavailable Gennaro, N Parvin TRAVEL ACCOMMODATION INSPECTOR Unavailable Unavailable Paris, N Parvin TRAVEL ACCOMMODATION INSPECTOR Unavailable Unavailable Gennaro, N Parvin TRAVEL ACCOMMODATION INSPECTOR Unavailable Unavailable Gennaro, N Parvin TRAVEL ACCOMMODATION INSPECTOR Unavailable Unavailable Gennaro, N Parvin TRAVEL ACCOMMODATION INSPECTOR Unavailable Unavailable Paris, N Parvin TRAVEL ACCOMMODATION INSPECTOR Unavailable Unavailable Paris, N Parvin TRAVEL ACCOMMODATION INSPECTOR Unavailable Unavailable Paris, N Parvin TRAVEL ACCOMMODATION INSPECTOR Unavailable Unavailable Paris, N Parvin TRAVEL ACCOMMODATION INSPECTOR Unavailable Unavailable Gennaro, N Parvin TRAVEL ACCOMMODATION INSPECTOR Unavailable Unavailable Gennaro, N Parvin TRAVEL ACCOMMODATION INSPECTOR Unavailable Unavailable Gennaro, N Parvin TRAVEL ACCOMMODATION INSPECTOR Unavailable Unavailable Gennaro, N Parvin TRAVEL ACCOMMODATION INSPECTOR Unavailable Unavailable Gennaro, N Parvin TRAVEL ACCOMMODATION INSPECTOR Unavailable Unavailable Gennaro, N Parvin TRAVEL ACCOMMODATION INSPECTOR Unavailable Unavailable SCOTT BROOKS MD Unavailable Unavailable [...] ANDREI RPA-C Unavailable Unavailable Pascale, L Charlotte TRAVEL ACCOMMODATION INSPECTOR Unavailable Unavailable Pascale, L Charlotte TRAVEL ACCOMMODATION INSPECTOR Unavailable Unavailable Pascale, L Charlotte TRAVEL ACCOMMODATION INSPECTOR Unavailable Unavailable Pascale, L Charlotte TRAVEL ACCOMMODATION INSPECTOR Unavailable Unavailable Pascale, L Charlotte TRAVEL ACCOMMODATION INSPECTOR Unavailable Unavailable Pascale, L Charlotte TRAVEL ACCOMMODATION INSPECTOR Unavailable Unavailable Pascale, L Charlotte TRAVEL ACCOMMODATION INSPECTOR Unavailable Unavailable Pascale, L Charlotte TRAVEL ACCOMMODATION INSPECTOR Unavailable Unavailable Pascale, L Charlotte TRAVEL ACCOMMODATION INSPECTOR Unavailable Unavailable Pascale, L Charlotte TRAVEL ACCOMMODATION INSPECTOR Unavailable Unavailable Pascale, L Charlotte TRAVEL ACCOMMODATION INSPECTOR Unavailable Unavailable Pascale, L Charlotte TRAVEL ACCOMMODATION INSPECTOR Unavailable Unavailable Pascale, L Charlotte TRAVEL ACCOMMODATION INSPECTOR Unavailable Unavailable Pascale, L Charlotte TRAVEL ACCOMMODATION INSPECTOR Unavailable Unavailable Pascale, L Charlotte TRAVEL ACCOMMODATION INSPECTOR Unavailable Unavailable Pascale, L Charlotte TRAVEL ACCOMMODATION INSPECTOR Unavailable Unavailable Pascale, L Charlotte TRAVEL ACCOMMODATION INSPECTOR Unavailable Unavailable Pascale, L Charlotte TRAVEL ACCOMMODATION INSPECTOR Unavailable Unavailable Pascale, L Charlotte TRAVEL ACCOMMODATION INSPECTOR Unavailable Unavailable Pascale, L Charlotte TRAVEL ACCOMMODATION INSPECTOR Unavailable Unavailable Pascale, L Charlotte TRAVEL ACCOMMODATION INSPECTOR Unavailable Unavailable Pascale, L Charlotte TRAVEL ACCOMMODATION INSPECTOR Unavailable Unavailable Re-disclosure Warning The records that [...] is protected by Article 27-F of the [facility] Public Health law. If you continue you may have access to information: Regarding HIV / AIDS; Provided by facilities licensed or operated by the [facility] Office of Mental Health; or Provided by the [facility] Office for People With Developmental Disabilities. If such information is present, then the following [facility] mandated warning applies: This information has been [...] law may result in a fine or correction sentence or both. A general authorization for [...] ) Outpatient Attender: Suzette Kirby PAReferrer: ANDREI PerryTWO HARB[place]) [facility] 05/29/2020 01:16:26 PM EST [facility] Recurring Patient Attender: Suzette BONILLA eferrer: ANDREI [place]) [facility] 05/29/2020 11:59:04 AM EST [facility] Spine [facility] Recurring Patient Referrer: ANDREI BOOTH ([place]) [facility] 05/28/2020 03:34:31 PM EST [facility] Recurring Patient Referrer: ANDREI BOOTH ([place]) [facility] 05/22/2020 06:35:10 AM EST [facility] Outpatient SJP.MAIKOL-SJP.MAIKOL 05/15/2020 12:00:00 AM EST [facility] Recurring Patient Referrer: ANDREI BOOTH ([place]) [facility] 05/12/2020 09:23:27 AM EST [facility] Outpatient Attender: SCOTT De Jesus/Beth/Robert/Mumtaz pearl 04/15/2020 09:00:00 AM EST [facility] ([facility]) Outpatient Attender: Parvin Burdick NP SJP.MAIKOL-SJP.MAIKOL 020 12:00:00 AM EST - 04/14/2020 09:47:29 AM EST [facility] [place] [address] [address] 04/01/2020 12:00:00 AM EST eCW1 ([facility]) [place] [address] [facility] [place] [address] 03/21/2020 12:00:00 AM EST eCW1 ([facility]) Unknown [address] [facility] [address] 03/13/2020 12:00:00 AM EST eCW1 ([facility]) Outpatient Referrer: Parvin RAMOSCT-SJP.CT 02/26/2020 12:00:00 AM EDT [facility] Outpatient [address] [place] [address] 02/25/2020 12:00:00 AM EDT eCW1 ([facility]) Outpatient Attender: Parvin RAMOSMAIKOL-SJP.MAIKOL 020 12:00:00 AM EDT - 02/19/2020 11:57:26 AM EDT [facility] Outpatient Attender: Michelle RAMOSMAIKOL-SJP.MAIKOL 10/01 12:00:00 AM EDT [facility] Outpatient Attender: Charlotte De Jesus/Beht/Robert/Rogelio 08/21/2019 02:30:00 PM EDT MEDENT ([facility]) [address] [address] 08/20/2019 12:00:00 AM EDT eCW1 ([facility]) [address] [address] 08/17/2019 12:00:00 AM EDT eCW1 ([facility]) [address] [address] 08/03/2019 12:00:00 AM EDT eCW1 ([facility]) Outpatient Attender: Charlotte Ashraf NP Main Office 07/24/2019 01:00:00 PM EDT MED[facility] ([facility] [address] [address] 07/13/2019 12:00:00 AM EDT eCW1 ([facility]) Outpatient Referrer: Michelle RAMOSMAIKOL-SJP.MAIKOL 07/2019 12:00:[address] [facility] [place] [address] [place] [address] 06/26/2019 12:00:00 AM EST eCW1 ([facility]) Outpatient Attender: Michelle Kent MDConsultant: Arabella RAMOSMAIKOL-SJP.MAIKOL 06/07/2019 02:43:57 PM EST - 06/07/2019 04:05:52 PM EST [facility] [place] [address] [address] 06/05/2019 12:00:00 AM EST eCW1 ([facility]) [facility] [place] [address] [facility] [address] 06/05/2019 12:00:00 AM EST eCW1 ([facility]) Outpatient [address] [facility] [address] 05/10/2019 12:00:00 AM EST eCW1 ([facility]) [facility] [place] [address] [facility] [address] 05/08/2019 12:00:00 AM EST eCW1 ([facility]) Immunizations Vaccine Date Status Description Data Source(s) INFLUENZA VIRUS VACCINE QUADRIVAL 7273-8149(6 MOS AND UP)/PF 01/09/2020 12:00:00 AM EDT completed [facility] Medications Medication Brand Name Start Date Product Form Dose Route Admi nistrative Instructions Pharmacy Instructions Status Indications Reaction Description Data Source(s) POLYETHYLENE GLYCOL 3350 142 MG/ML Oral Solution [Miralax] M iralax 04/15/2020 12:00:00 AM EST active M EDENT ([facility], ) magnesium citrate 58.2 MG/ML Oral Solution Magnesium Citrate 04/15/2020 12:00:00 AM EST active MEDENT ([facility], ) meloxicam 15 MG Oral Tablet meloxicam (MOBIC) 15 MG ta blet meloxicam (MOBIC) 15 MG tablet 04/01/2020 12:00:00 AM EST 15 mg Oral active Take 15 mg by mouth daily [facility] atorvastatin 40 MG Oral Tablet atorvastatin (LIPITOR) 40 MG tablet atorvastatin (LIPITOR) 40 MG tablet 04/01/2020 12:00:00 AM EST 40 mg Oral active Take 40 mg by mouth daily [facility] atorvastatin 40 MG Oral Tablet Atorvastatin Calcium 40 MG Atorvastatin Calcium 40 MG 04/01/2020 12:00:00 AM EST 1.0 {tablet} activ e Atorvastatin Calcium 40 MG eCW1 ([facility]) 15 mg 04/01/2020 12:00:00 AM EST tablet [...] {tablet} active Meloxicam 1 5 MG eCW1 ([facility]) Metoprolol Tartrate 50 MG Oral Tablet me toprolol tartrate (LOPRESSOR) 50 MG tablet metoprolol tartrate (LOPRESSOR) 50 MG tablet 02/21/2020 12:0 0:00 AM EDT active One tablet by [facility] the night before and morning of the procedure [facility] 50 mg 02/21/2020 12:00:00 AM EDT tablet [...] 6 (six) hours as needed for pain [facility] Insurance Providers Payer name Policy type / Coverage type Policy ID Covered green party ID Covered green party's relationship to major Policy Major Plan Information MEDICARE COMPLETE [id number] SP [id number] [facility] Medicare Complete F [id number] SELF [id number] MEDICARE COMPLETE [id number] SP [id number] [facility] MEDICARE [id number] Lela [id number] [facility] Medicare Complete F [id number] SELF [id number] [facility] MEDICARE [id number] MEDICARE COMPLETE [id number] SP [id number] [facility] [id number] SP [id number] [facility] [id number] SP [id number] ANSI-Medicare Part B [id number] ANSI-Medicare Part B [id number] United HLCR/Medicare Solu Commercial [id number] Self [id number] UNITED HEALTHCARE [id number] SP [id number] MEDICARE COMPLETE [id number] SP [id number] UNITED HE[employer]CARE [id number] SP [id number] United HLCR/Medicare Solu Commercial [id number] Self [id number] United HLCR/Medicare Solu Commercial [id number] Self [id number] United HLCR/Medicare Solu Commercial [id number] Self [id number] UNITED [facility] MGD MEDICARE [id number] SP [id number] [employer] P [id number] S [id number] [employer] [id number] SP [id number] [employer] P [id number] S [id number] Problems, Conditions, and Diagnoses Code Display Name Description Problem Type Effective Dates Data Source(s) E78.5 Hyperlipidemia Hyperlipidemia [id number] 04/14/2020 12:00: 00 AM EST [facility] I25.10 Coronary artery disease Coronary artery disease 580190 01 04/14/2020 12:00:00 AM EST [facility] E78.2 [id number] Mixed hyperlipidemia Problem 04/01/2020 12:0 0:00 AM EST eCW1 ([facility]) G89.29 [id number] Other chronic pain Problem 02/25/2020 12:00: 00 AM EDT eCW1 ([facility]) R20.2 [id number] Bilateral leg paresthesia Problem 02/25/2020 12:00:00 AM EDT eCW1 ([facility]) I77.810 Ascending aorta dilatation Ascending aorta dilatation [id number] 10/23/2019 12:00:00 AM EDT [facility] 24380091 Obstructive sleep apnea syndrome Obstructive sle ep apnea syndrome Problem 08/21/2019 12:00:00 AM EDT MED[facility] ([facility] ) I77.810 526347528 Ascending aorta dilatation Problem 0 12:00:00 AM EDT eCW1 ([facility]) I77.810 845179706 Dilated aortic root Problem 08/20/2019 12:00 :00 AM EDT eCW1 ([facility]) I77.810 006834092 Ascending aorta dilatation Problem 0 12:00:00 AM EDT eCW1 ([facility]) 69272190 Sleep apnea Sleep apnea Problem 07/24/2019 12:00:00 AM EDT MED[facility] ([facility] 3507748 Disturbance of consciousness Disturbance of consciousn ess Problem 07/24/2019 12:00:00 AM EDT [facility] ([facility] 576207659 Difficulty breathing Difficulty breathing Problem 07/24/2019 12:00:00 AM EDT [facility] ([facility] F43.22 18611509 Adjustment disorder with anxiety Problem 06/28/2019 12:00:00 AM EST eCW1 ([facility]) F43.22 43814829 Adjustment disorder with anxiety Problem 06/28/2019 12:00:00 AM EST eCW1 ([facility]) G47.33 JUAN (obstructive sleep apnea) JUAN (obstructive sleep a pnea) 72139683 06/07/2019 12:00:00 AM [facility] R94.31 Abnormal EKG Abnormal EKG 57892507 06/06/2019 12:00:00 A M [facility] R40.0 [id number] Daytime somnolence Problem 06/05/2019 12:0 0:00 AM EST eCW1 ([facility]) E78.5 Hyperlipidemia, unspecified Hyperlipidemia, unspecifie d Diagnosis 04/14/2020 09:15:26 AM [facility] R07.89 Other chest pain Other chest pain Diagnosis 04/14/2020 09 :15:26 AM [facility] I77.810 Thoracic aortic ectasia Thoracic aortic ectasia Diagno sis 04/14/2020 09:15:26 AM [facility] R94.31 Abnormal electrocardiogram [ECG] [EKG] A bnormal electrocardiogram (ECG) (EKG) Diagnosis 04/14/2020 09:15:26 AM [facility] I25.10 Atherosclerotic heart diseas e of [place] coronary artery without angina pectoris Atherosclerotic heart disease of [place] Diagnosis 04/14/2020 09:15:26 AM [facility] K58.0 Irritable bowel syndrome with diarrhea I rritable bowel syndrome with diarrhea Diagnosis 02/19/2020 11:17:20 AM EDT [facility] G47.33 Obstructive sleep apnea (adult) (pediatr ic) Obstructive sleep apnea (adult) (pediatr Diagnosis 10/23/2019 09:35:07 AM EDT [facility] R07.2 Precordial pain Precordial pain Diagnosis 06/07/2019 02:4 3:57 PM [facility] Surgeries/Procedures Procedure Description Date Indications Data Source(s) Office Visit, Est Pt., Level 4 PC 08/20/2019 12:00:00 AM EDT eCW1 ([facility]) Office Visit, Est Pt., Level 2 FC 08/20/2019 12:00:00 AM EDT eCW1 ([facility]) NO CHARGE VISIT 08/17/2019 12:00:00 AM EDT eCW1 ([facility]) PSYTX W PT 45 MINUTES 08/03/2019 12:00:00 AM EDT eCW1 ([facility]) PSYCH DIAGNOSTIC EVALUATION 06/26/2019 12:00:00 AM EST eCW1 ([facility]) Office Visit, Est Pt., Level 3 PC 06/05/2019 12:00:00 AM EST eCW1 ([facility]) Results ID Date Data Source [id number] 05/29/2020 01:16:26 PM EST [facility] PCName: Kasandra NettlesOB: 1955Provider: Consuelo Kirby: 05/29/2020 Chief ComplaintChronic low back pain. [facility] Controlled Substance and Treatment Agreement Patient has signed a [facility] Controlled Substance and Treatment Agreement. Patient has [...] ting or bleeding disorders; denies seeing a government minister. See initial patient paperwork dated 05/29/2020. I [...] a safe and effective treatment plan. - DRY CHAIN OFFBEARER: The patient was counseled on the following: [...] rce(s) Supporting Document(s) ID Date Data Source [id number] 02/26/2020 09:58:10 AM EDT [address] [address]Tqvxlpx Name: KASANDRA NETTLESOB: 1955Sex: MOrdering Provider: PARVIN Calles Prov: PARVIN Zarateerropal Provider: Procedure Performed: SJP CT LUNG ONLY CARDIOExam Date: 02/26/2020 09:39MRN: [id number] Number: [id number] Class: UnknownAccount #: [id number] for Exam: Irritable bowel syndrome with diarrheaTechnique: [...] Nitin Ernst On 02/26/2020 9:58 AMWorkstation ID: [id number] Name Value Range Interpretation Code Description Data Destini rce(s) Supporting Document(s) ID Date Data Source [id number] 02/26/2020 09:54:40 AM EDT [facility] This is a summary report. The complete [...] RISK) 02/25/2020 04:39:54 AM EDT eCW1 ( [facility]) Name Value Range Interpretation Code Description Data Destini rce(s) Supporting Document(s) Triglyceride [Mass/volume] in Serum or Plasma by calculation 204 TRIGLYCERIDES LEVEL eCW1 ([facility]) Cholesterol in HDL [Moles/volume] in Serum or Plasma 45 HDL CHOLESTEROL eCW1 ([facility]) Cholesterol [Moles/volume] in Serum or Plasma 229 CHOLESTEROL LEVEL eCW1 ([facility]) 184 NON-HDL-C eCW1 ([facility]) Cholesterol in LDL [Mass/volume] in Serum or Plasma by calculation 143 LDL CHOLESTEROL eCW1 ([facility]) 5.088 CHOLESTEROL RISK RATIO eCW1 (Replaced by [facility]) ID Date Data Source [id number] 02/25/2020 04:39:54 AM EDT eCW1 ([facility]) Name Value Range Interpretation Code Description Data Destini rce(s) Supporting Document(s) Hemoglobin A1c/Hemoglobin.total in Blood 5.3 HEMOGLOBIN A1c eCW1 ([facility]) ID Date Data Source Comprehensive Metabolic Profile (CMP) 02/25/2020 04:39:54 AM EDT eCW1 ([facility]) Name Value Range Interpretation Code Description Data Destini rce(s) Supporting Document(s) 14 BLOOD UREA NITROGEN eCW1 ([facility]) 85 GLUCOSE, FASTING eCW1 ([facility]) 139 SODIUM LEVEL eCW1 (Critical access hospital) 0.90 CREATININE FOR GFR eCW1 ([facility]) > 60.0 GLOMERULAR FILTRATION RATE eCW 1 ([facility]) 4.3 POTASSIUM SERUM eCW1 ([facility]) 105 CHLORIDE LEVEL eCW1 ([facility]) 9.8 CALCIUM LEVEL eCW1 ([facility]) 29 CARBON DIOXIDE LEVEL eCW1 (Critical access hospital) 24 AST/SGOT eCW1 ([facility]) 98 ALKALINE PHOSPHATASE eCW1 (Critical access hospital) 0.5 BILIRUBIN,TOTAL eCW1 ([facility]) 36 ALT/SGPT eCW1 ([facility]) 7.9 TOTAL PROTEIN eCW1 ([facility]) 4.3 ALBUMIN eCW1 ([facility]) 1.2 ALBUMIN/GLOBULIN RATIO eCW1 (Replaced by [facility]) ID Date Data Source CBC with Differential 02/25/2020 04:39:54 AM EDT eCW1 ([facility]) Name Value Range Interpretation Code Description Data Destini rce(s) Supporting Document(s) 7.6 WHITE BLOOD COUNT eCW1 ([facility]) 5.73 RED BLOOD COUNT eCW1 ([facility]) 17.2 HEMOGLOBIN eCW1 ([facility]) 30.0 MEAN CORPUSCULAR HEMOGLOBIN eC W1 ([facility]) 92.0 MEAN CORPUSCULAR VOLUME eCW1 ( [facility]) 52.7 HEMATOCRIT eCW1 ([facility]) 32.6 MEAN CORPUSCULAR HGB CONC eCW1 ([facility]) 208 PLATELET COUNT, AUTOMATED eCW1 ([facility]) 54.1 NEUTROPHILS % eCW1 ([facility]) 14.3 RED CELL DISTRIBUTION WIDTH eC W1 ([facility]) 7.9 MONO % eCW1 ([facility]) 35.6 LYMPH % eCW1 ([facility]) 1.4 EOS % eCW1 ([facility]) 0.7 BASO % eCW1 ([facility]) 0.6 MONO # eCW1 ([facility]) 4.1 NEUTROPHILS # eCW1 ([facility]) 2.7 LYMPH # eCW1 ([facility]) 0.1 EOS # eCW1 ([facility]) 0.1 BASO # eCW1 ([facility]) ID Date Data Source [id number] 07/03/2019 01:08:52 PM EST [facility] Name Value Range Interpretation Code Description Data Destini rce(s) Supporting Document(s) &PDF [facility] OQIVIg1oWvACByOp04/DZPmwZOFbf5ShQGybHBa7YPdtRREwQ3NlxPzhBJLQLW8UI71lIMKCPY8uHd9v jI [file] 4Npf+ayiMCHSJ6rn6xBhF3EhBRtcq9Fz/7BT+HdB6iCn8RLMvGvE+Thl1iSo5t4l/VlF/E2daqSz+insurance application investigator [file] AgICAgICAgICAgICAgICAgICAgICAgICAgICAgICAg ICAgICAgICAgICAgICAgICAgICAgICAgICAgICAgICAgICAgICANCiAgICAgICAgICAgICAgICAgICAg ICAgICAgICAgICAgICAgICAgICAgICAgICAgICAgICAgICAgICAgICAgICAgICAgICAgICAgICAgICAg ICAgICAgICAgICAgICAgICAgICANCiAgICAgICAgIC AgICAgICAgICAgICAgICAgICAgICAgICAgICAgICAgICAgICAgICAgICAgICAgICAgICAgICAgICAgIC AgICAgICAgICAgICAgICAgICAgICAgICAgICAgICANCiAgICAgICAgICAgICAgICAgICAgICAgICAgIC AgICAgICAgICAgICAgICAgICAgICAgICAgICAgICAg ICAgICAgICAgICAgICAgICAgICAgICAgICAgICAgICAgICAgICAgICANCiAgICAgICAgICAgICAgICAg ICAgICAgICAgICAgICAgICAgICAgICAgICAgICAgICAgICAgICAgICAgICAgICAgICAgICAgICAgICAg ICAgICAgICAgICAgICAgICAgICAgICANCiAgICAgIC AgICAgICAgICAgICAgICAgICAgICAgICAgICAgICAgICAgICAgICAgICAgICAgICAgICAgICAgICAgIC AgICAgICAgICAgICAgICAgICAgICAgICAgICAgICAgICANCiAgICAgICAgICAgICAgICAgICAgICAgIC AgICAgICAgICAgICAgICAgICAgICAgICAgICAgICAg ICAgICAgICAgICAgICAgICAgICAgICAgICAgICAgICAgICAgICAgICAgICANCiAgICAgICAgICAgICAg ICAgICAgICAgICAgICAgICAgICAgICAgICAgICAgICAgICAgICAgICAgICAgICAgICAgICAgICAgICAg ICAgICAgICAgICAgICAgICAgICAgICAgICANCiAgIC AgICAgICAgICAgICAgICAgICAgICAgICAgICAgICAgICAgICAgICAgICAgICAgICAgICAgICAgICAgIC AgICAgICAgICAgICAgICAgICAgICAgICAgICAgICAgICAgICANCiAgICAgICAgICAgICAgICAgICAgIC AgICAgICAgICAgICAgICAgICAgICAgICAgICAgICAg ICAgICAgICAgICAgICAgICAgICAgICAgICAgICAgICAgICAgICAgICAgICAgICANCjw/jJYdM0pptIWh fgO1U9hjGr3VUh7OQS3uz2XuDVUqGRgwdtMrLmvXFvLeYLKoHxfFJnq9ENogDP8NjJRgS9HiH9BiBBbz RZ0TVCUoWHRghXKqZRTiQLRyKhI5BUCtEBhbUY3IiF CoHZemBXWoFSGwEpFqUVEdJG2ISRKoT651lxXnZx6TNn7RTqIxSA8csj7WIgBaCGHwGawPFwc8HLmjWE 9XvTDgL3AerZOtp0rOZpMhI2ZSHNN3FIZjRg5HNZUoKbXoAWXxOChgNG0kYNCrIOKTkLjaghT3CM1IMK 1ktjBpPS2TObGbAr5lMh5GEhFiO8UgZ3XsUOJmGCFE RHivQX3IOEGrXRO0CYQlBUHzEDLARbCjH62wOU8FW6Ggj68iZzU2GTSqMhWqYNkfBG96lEuezjKvtZBr sJgwEQ1KOn1+GZgfliAoEtaCXdceNXKHHqPcQhBRFqCkSGDlAOYyWIEvKnV2DcXmLa3PNAEyCVEtKNUi ZnFgMFIrLHQfRLxkWVYzAYC9VnP8JSYvEXCvAI1YMy YaNZJcBVz2XKEwQNTdRCWuow0RAFVqPMBeQXL5OyHbNCWfTRNeBXroNERlRWQuUQX5NIAzFNAlQM1LYs UfWZTmCZN1YQmdPDHlVTAmdf2IUBNiZBTaGVk7KCSnCBPcCWDoLWgqQIXcNJL5XThkQBNgKVEnLC1TWi AyTMYpWDO0MzYtBUEyGQMjlp9VYSFgJDCwWwBrRmWk ZHGhCRUjUPvyLGOjNLN6AcN5OLBsOSYpML3LWxIfOQOyBYlcStmrSPUgZKJzia2FOFWrJWVtElO1CTYx AAKtXAAxHEsjUIJpMNH2CkN5ZBFjQQJbKF0RBhXvAITfNIq1KLHdRLKiKUDskb3GLMPwPNNbJWfqHgPp SSPiQNRkYQgbAKDhCGO1YYDwXPMfPTVqGA0DFgTkLI NyNUP3CKGsURKrTQUopu4FSCMbROFcWxhmXeXeYAXaTNIbLJptEZDgXCF1LNYeEMImGWDvGP4DLxLcQG UvHZf9ONbsSFYfFZDynp0WgBRmsTylet8SGFuYRy2JyDljFAKcATshTs2ipYPcPCFhRPGNOh1QqbTrWD [id number]== Procedure Social History Code Duration Value Status Description Data Source(s ) Smoking 04/01/2020 12:00:00 AM EST Current Smoker completed Curre nt Smoker eCW1 ([facility]) Alcohol intake 02/26/2020 12:00:00 AM EDT Never completed [facility] Cigarette pack-years 02/26/2020 12:00:00 AM EDT UNK completed [facility] Cigarettes smoked current (pack per day) - Reported 02/26/20 12:00:00 AM EDT UNK completed [facility] Smoking 02/26/2020 12:00:00 AM EDT Former smoker completed Former smoker [facility] Smoking 02/25/2020 12:00:00 AM EDT Current Smoker completed Curre nt Smoker eCW1 ([facility]) Smoking 02/25/2020 12:00:00 AM EDT Current Smoker completed Curre nt Smoker eCW1 ([facility]) Smoking 02/25/2020 12:00:00 AM EDT Current Smoker completed Curre nt Smoker eCW1 ([facility]) Smoking 10/11/2019 12:00:00 AM EDT - 11/30/2018 12:00:00 AM EDT Patient is a former smoker completed Patient is a former smoker [facility] ([facility]) Vital Signs ID Date Data Source UNK Name Value Range Interpretation Code Description Data Source(s) Body surface area Derived from formula 2.72 m2 2.72 m2 [facility] ([facility]) Body weight 165.564 kg 165.564 kg [facility] ([facility]) [place] body weight 172 [lb_av] 172 [lb_av] MEDEN T ([facility]) Body mass index (BMI) [Ratio] 50.9 kg/m2 50.9 k g/m2 [facility] ([facility]) Body weight 365.00 [lb_av] 365.00 [lb_av] VINI T ([facility], ) Body height 71 [in_i] 71 [in_i] JESSICALEANNE ([facility], ) 5'11" Diastolic blood pressure 80 mm[Hg] 80 mm[Hg] JESSICALEANNE ([facility], ) Systolic blood pressure 124 mm[Hg] 124 mm[Hg] Cesia LUNA ([facility], ) Body mass index (BMI) [Ratio] 49.37 kg/m2 49.37 kg/m2 [facility] Body weight 165.109 kg 165.109 kg [facility] Body height 182.9 cm 182.9 cm [facility] Respiratory rate 16 /min 16 /min [facility] Diastolic blood pressure 76 mm[Hg] 76 mm[Hg] eCW1 ([facility]) Systolic blood pressure 138 mm[Hg] 138 mm[Hg] e CW1 ([facility]) Body temperature 97.5 [degF] 97.5 [degF] eCW1 ( [facility]) Respiratory rate 18 /min 18 /min eCW1 ([facility]) Heart rate 83 /min 83 /min eCW1 ([facility]) Body mass index (BMI) [Ratio] 49.10 kg/m2 49.10 kg/m2 W1 ([facility]) Body height [in_i] eCW1 ([facility]) Body weight 372.2 [lb_av] 372.2 [lb_av] eCW1 (Replaced by [facility]) Diastolic blood pressure 90 mm[Hg] 90 mm[Hg] eCW1 ([facility]) Systolic blood pressure 140 mm[Hg] 140 mm[Hg] e CW1 ([facility]) Body temperature 97.2 [degF] 97.2 [degF] eCW1 ( [facility]) Respiratory rate 18 /min 18 /min eCW1 ([facility]) Heart rate 84 /min 84 /min eCW1 ([facility]) Body mass index (BMI) [Ratio] 48.23 kg/m2 48.23 kg/m2 eCW1 ([facility]) Body height [in_i] eCW1 ([facility]) Body weight 365.6 [lb_av] 365.6 [lb_av] eCW1 (Replaced by [facility]) Body surface area Derived from formula 2.73 m2 2.73 m2 [facility] ([facility]) Body weight 166.471 kg 166.471 kg [facility] ([facility]) [place] body weight 172 [lb_av] 172 [facility]_av] [facility] Body mass index (BMI) [Ratio] 51.2 kg/m2 51.2 k g/m2 [facility] ([facility]) Body weight 367.00 [lb_av] 367.00 [lb_av] [facility] Body height 71 [in_i] 71 [in_i] [facility] ([facility]) 5'11" Body temperature 97.2 [degF] 97.2 [degF] [facility] ([facility]) Oxygen saturation in Arterial blood by Pulse oximetry 95 % 95 % [facility] ([facility]) Heart rate 66 /min 66 /min [facility] ([facility]) Diastolic blood pressure 80 mm[Hg] 80 mm[Hg] [facility] ([facility]) Systolic blood pressure 130 mm[Hg] 130 mm[Hg] [facility] Body weight 170.554 kg 170.554 kg [facility] ([facility]) Body mass index (BMI) [Ratio] 52.4 kg/m2 52.4 k g/m2 [facility] ([facility]) Body weight 376.00 [lb_av] 376.00 [lb_av] [facility] Body height 71 [in_i] 71 [in_i] [facility] ([facility]) 5'11" Body temperature 98.4 [degF] 98.4 [degF] [facility] ([facility], ) Oxygen saturation in Arterial blood by Pulse oximetry 96 % 96 % [facility] Heart rate 98 /min 98 /min MEDENT ([facility], ) Diastolic blood pressure 78 mm[Hg] 78 mm[Hg] MEDENT ([facility], ) Systolic blood pressure 124 mm[Hg] 124 mm[Hg] M EDENT ([facility], ) Diastolic blood pressure 80 mm[Hg] 80 mm[Hg] eCW1 ([facility]) Systolic blood pressure 142 mm[Hg] 142 mm[Hg] e CW1 ([facility]) Body temperature 96.1 [degF] 96.1 [degF] eCW1 ( [facility]) Respiratory rate 18 /min 18 /min eCW1 ([facility]) Heart rate 79 /min 79 /min eCW1 ([facility]) Body mass index (BMI) [Ratio] 48.52 kg/m2 48.52 kg/m2 W1 ([facility]) Body height [in_us] eCW1 ([facility]) Body weight Measured 367.8 [lb_av] 367.8 [lb_av ] W1 ([facility]) Body mass index (BMI) [Ratio] 49.8 kg/m2 [...] blood pressure 88 mm[Hg] 88 mm[Hg] eCW1 ([facility]) Systolic blood pressure 140 mm[Hg] 140 mm[Hg] e CW1 ([facility]) Body temperature 98.3 [degF] 98.3 [degF] eCW1 ( [facility]) Respiratory rate 18 /min 18 /min eCW1 ([facility]) Heart rate 80 /min 80 /min eCW1 ([facility]) Body mass index (BMI) [Ratio] 45.64 kg/m2 45.64 kg/m2 eCW1 ([facility]) Body height [in_us] eCW1 ([facility]) Body weight Measured 346 [lb_av] 346 [lb_av] eC W1 ([facility]) Diastolic blood pressure 88 mm[Hg] 88 mm[Hg] eCW1 ([facility]) Systolic blood pressure 142 mm[Hg] 142 mm[Hg] e CW1 ([facility]) Body temperature 97.3 [degF] 97.3 [degF] eCW1 ( [facility]) Respiratory rate 18 /min 18 /min eCW1 ([facility]) Heart rate 93 /min 93 /min eCW1 ([facility]) Body mass index (BMI) [Ratio] 46.46 kg/m2 46.46 kg/m2 eCW1 ([facility]) Body height [in_i] eCW1 ([facility]) Body weight 352.2 [lb_av] 352.2 [lb_av] eCW1 (Replaced by [facility]) Patient Treatment Plan of Care Planned Activity Planned Date Details Description Data Source (s) atorvastatin 40 MG Oral Tablet 04/01/2020 12:00:00 AM EST [facility] meloxicam 15 MG Oral Tablet 04/01/2020 12:00:00 AM EST [facility] meloxicam 15 MG Oral Tablet 04/01/2020 12:00:00 AM EST eCW1 ([facility]) atorvastatin 40 MG Oral Tablet 04/01/2020 12:00:00 AM EST eCW1 ([facility]) Metoprolol Tartrate 50 MG Oral Tablet 02/21/2020 12:00:00 AM EDT [facility] Ibuprofen 200 MG Oral Tablet [facility]
--- NOTE | 2020-06-18 14:19 | REP ---
INDICATION: CHEST PAIN. COMPARISON: Comparison chest x-ray October 23, 2019. TECHNIQUE: Portable upright AP chest radiograph. FINDINGS: The lungs are well inflated and free of infiltrate. Pleural angles are sharp. Heart size is normal. Pulmonary vasculature is not increased. Monitoring electrodes are seen. IMPRESSION: No active disease. <Electronically signed by Mansoor Rich > 06/18/20 [id number]
[2020-06-18 14:40] LABS: ALT/SGPT 38 U/L (12-78); BILIRUBIN,DIRECT 0.2 MG/DL (0.0-0.2); BILIRUBIN,TOTAL 0.4 MG/DL (0.2-1.0); BLOOD UREA NITROGEN 11 MG/DL (7-18); CALCIUM LEVEL 9.8 MG/DL (8.8-10.2); CARBON DIOXIDE LEVEL 27 MEQ/L (21-32); CHLORIDE LEVEL 106 MEQ/L (98-107); CK-MB VALUE MASS 1.4 NG/ML (<3.6); CPK CREATINE PHOSPHOKINASE 156 U/L (39-308); CREATININE FOR GFR 0.88 MG/DL (0.70-1.30); GLOMERULAR FILTRATION RATE > 60.0 (>49); GLUCOSE, FASTING 107 MG/DL (70-100); NT-PRO BNP 27 PG/ML (<125); POTASSIUM SERUM 4.1 MEQ/L (3.5-5.1); SODIUM LEVEL 140 MEQ/L (136-145); THYROID STIMULATING HORMONE 0.765 uIU/ML (0.358-3.740); TOTAL PROTEIN 7.5 GM/DL (6.4-8.2); TROPONIN I < 0.02 NG/ML (< 0.10)
[2020-06-18 15:08] LABS: RSV AMPLIFICATION NEGATIVE (NEGATIVE)
[2020-06-18] MEDS ORDERED: ISOVUE-370 76% 100ML VIAL As Ordered ONE (15:30)
[2020-06-18] MEDS ORDERED: KETOROLAC 30 MG/ML 1ML VIAL IV ONE (15:30)
--- NOTE | 2020-06-18 15:57 | REP ---
INDICATION: chest pain. COMPARISON: Comparison chest CT study October 23, 2019.. TECHNIQUE: Contrast dose: 75 ML of Isovue [address] technique: Helical scanning is acquired and overlapping 1.5 mm and contiguous 3 mm axial images are reformatted. In addition, maximum intensity projection and multiplanar re-formation images are generated in sagittal and coronal imaging projections. FINDINGS: There is good opacification in the pulmonary arterial tree. There is no evidence of vessel cut off or filling defect to suggest pulmonary embolus. Homogeneous opacity is seen in the thoracic aorta. There is no evidence of aneurysm or dissection. Lung window settings demonstrate mild bilateral lower lobe platelike atelectatic changes. There is no evidence of pleural effusion or pericardial effusion. No infiltrate, mass or significant nodule is appreciated. Heart is somewhat enlarged. Stable normal-sized mediastinal lymph nodes are seen in the AP window. No adenopathy. In the upper abdomen, normal adrenal glands are seen. There is a 3 mm intrarenal calculus in the upper pole of the left kidney along with a 1.8 cm upper pole left renal cyst. Visualized upper abdominal structures are otherwise unremarkable. IMPRESSION: No CT evidence of pulmonary embolus. Intrarenal nephrolithiasis left kidney upper pole. Prominent heart unchanged. Minimal platelike atelectasis in the lung bases. <Electronically signed by Mansoor Rich > 06/18/20 [id number]
[2020-06-18] MEDS ORDERED: COMBIVENT RESPIMAT 100-20MCG INHALER 4GM INH ONE (17:15)
[2020-06-18] MEDS ORDERED: dexameTHASONE 20MG/5ML VIAL (J1100 PER 1MG) IV ONE (17:15)
[2020-06-18] MEDS ORDERED: COMBAER6 INH (18:21)
[2020-06-18] MEDS ORDERED: PRED20TA PO (18:21)
[2020-06-18 18:31] VITALS: BP 157/75
--- NOTE | 2020-06-20 08:07 | ECGEPIP ---
[facility] - ED Test Date: 2020-06-18 Pat Name: KASANDRA AG Department: Room: - Gender: Male [employer]: : [id number] Requested By: SCOTT Johnston Order Number: [id number] Reading MD: Meghan Zavala Measurements Intervals [place] Rate: 65 P: 40 MO: 178 QRS: -42 QRSD: 124 T: 38 QT: 406 QTc: 422 Interpretive Statements Normal sinus rhythm Left axis deviation irbb similar 10/23/19 Electronically Signed on 06-20-2020 8:07:11 EST by Meghan Zavala
== END 2020-06-18 18:38 | disposition home or self-care (01) ==
LOC: M ED 13:19
DX: R07.89 Other chest pain (principal); R06.02 Shortness of breath; R22.43 Localized swelling, mass and lump, lower limb, bilateral; J98.11 Atelectasis; I10 Essential (primary) hypertension; G47.33 Obstructive sleep apnea (adult) (pediatric); F17.200 Nicotine dependence, unspecified, uncomplicated; F12.10 Cannabis abuse, uncomplicated; Z88.8 Allergy status to other drugs, medicaments and biological substances; Z79.899 Other long term (current) drug therapy
CPT/HCPCS: 71045; 71275; 80048; 80076; 82550; 82553; 83880; 84443; 84484; 85025; 87631; 93005; 93041; 94640; 94760; 96374; 96375; 99285; J1100; J1885; Q9967

== ENCOUNTER 2020-06-24 08:12 | Inpatient (IN) | payer MEDICARE ==
[2020-06-24] VITALS (9 sets, daily range): BP systolic 102–137; BP diastolic 61–93; PULSE 160
[~2020-06-24] VITALS: Ht 182.9 cm; Wt 151.8 kg
[~2020-06-24 08:12] MED LIST changes: +COMBAER6 INH; +FURO20TA2 PO; +MELO15TA28 PO; +PRED20TA PO
[2020-06-24 08:40] LABS: BASO % 0.3 % (0.0-1.0); EOS % 0.3 % (0.0-3.0); HEMOGLOBIN 18.4 g/dl (13.5-17.5); LYMPH # 2.3 10^3/uL (1.5-5.0); LYMPH % 20.9 % (24.0-44.0); MEAN CORPUSCULAR HEMOGLOBIN 29.1 pg (27.0-33.0); MEAN CORPUSCULAR HGB CONC 32.9 g/dl (32.0-36.5); MEAN CORPUSCULAR VOLUME 88.6 fl (80.0-96.0); MONO # 0.6 10^3/uL (0.0-0.8); MONO % 5.1 % (2.0-8.0); NEUTROPHILS % 72.9 % (36.0-66.0); PLATELET COUNT, AUTOMATED 248 10^3/uL (150-450); RED BLOOD COUNT 6.32 10^6/uL (4.30-6.10)
[2020-06-24] MEDS ORDERED: METOPROLOL 5 MG/5 ML VIAL IV STA (08:41)
--- NOTE | 2020-06-24 08:43 | REP ---
INDICATION: CHEST PAIN. COMPARISON: Comparison chest x-ray June 18, 2020. TECHNIQUE: Portable upright AP chest radiograph. FINDINGS: The lungs are symmetrically aerated and free of infiltrate. Pleural angles are sharp. Monitoring electrodes are seen. Pulmonary vasculature is not increased. The aorta is tortuous. Heart size is borderline unchanged. No significant bony abnormality.. IMPRESSION: No active disease. <Electronically signed by Mansoor Rich > 06/24/20 [id number]
[2020-06-24 08:51] LABS: INR 0.96
[2020-06-24 08:52] LABS: PARTIAL THROMBOPLASTIN TIME 26.4 SECONDS (24.2-38.5)
[2020-06-24] MEDS ORDERED: METOPROLOL 5 MG/5 ML VIAL IV SCH (09:15)
[2020-06-24] MEDS ORDERED: METOPROLOL TART 25 MG TABLET PO ONE (09:15)
[2020-06-24] MEDS ORDERED: NS 1,000 ML IV ONE (09:15)
[2020-06-24 09:27] LABS: CK-MB VALUE MASS 5.2 NG/ML (<3.6); FREE T4 1.5 NG/DL (0.76-1.46); MB/CK RELATIVE INDEX 5.1 (< OR =4); THYROID STIMULATING HORMONE 1.84 uIU/ML (0.358-3.740); TROPONIN I 0.72 NG/ML (< 0.10)
[2020-06-24 09:53] LABS: MAGNESIUM LEVEL 2.1 MG/DL (1.8-2.4)
[2020-06-24] MEDS ORDERED: ASPIRIN 81 MG CHEW TABLET PO ONE (10:30)
[2020-06-24] MEDS ORDERED: ACETAMINOPHEN TAB 650MG DOSE (2X325MG) PO PRN (11:00)
--- OUTSIDE RECORDS SUMMARY | 2020-06-24 11:09 | CCD ---
Author Author [facility] Organization [facility] Address Unknown Phone Unavailable Care Team Providers Care Data Warehouse Analyst Name Role Phone Michelle Kent MD Unavailable [...] Unavailable Unavailable Michelle Kent MD Unavailable Unavailable Micehlle Kent MD Unavailable Unavailable Slezka Vojtech MD Unavailable [...] Unavailable Mirta, Yessi Suzette PA Unavailable Unavailable Llewellyn, N Parvin TYING IN MACHINE OPERATOR Unavailable Unavailable Llewellyn, N Parvin TYING IN MACHINE OPERATOR Unavailable Unavailable Llewellyn, N Parvin TYING IN MACHINE OPERATOR Unavailable Unavailable Llewellyn, N Parvin TYING IN MACHINE OPERATOR Unavailable Unavailable Llewellyn, N Parvin TYING IN MACHINE OPERATOR Unavailable Unavailable Gennaro, N Parvin TYING IN MACHINE OPERATOR Unavailable Unavailable Llewellyn, N Parvin TYING IN MACHINE OPERATOR Unavailable Unavailable Llewellyn, N Parvin TYING IN MACHINE OPERATOR Unavailable Unavailable Llewellyn, N Parvin TYING IN MACHINE OPERATOR Unavailable Unavailable Llewellyn, N Parvin TYING IN MACHINE OPERATOR Unavailable Unavailable Gennaro, N Parvin TYING IN MACHINE OPERATOR Unavailable Unavailable Gennaro, N Parvin TYING IN MACHINE OPERATOR Unavailable Unavailable Gennaro, N Parvin TYING IN MACHINE OPERATOR Unavailable Unavailable Llewellyn, N Parvin TYING IN MACHINE OPERATOR Unavailable Unavailable Gennaro, N Parvin TYING IN MACHINE OPERATOR Unavailable Unavailable Gennaro, N Parvin TYING IN MACHINE OPERATOR Unavailable Unavailable Llewellyn, N Parvin TYING IN MACHINE OPERATOR Unavailable Unavailable Gennaro, N Parvin TYING IN MACHINE OPERATOR Unavailable Unavailable Llewellyn, N Parvin TYING IN MACHINE OPERATOR Unavailable Unavailable Llewellyn, N Parvin TYING IN MACHINE OPERATOR Unavailable Unavailable Llewellyn, N Parvin TYING IN MACHINE OPERATOR Unavailable Unavailable Gennaro, N Parvin TYING IN MACHINE OPERATOR Unavailable Unavailable Llewellyn, N Parvin TYING IN MACHINE OPERATOR Unavailable Unavailable Llewellyn, N Parvin TYING IN MACHINE OPERATOR Unavailable Unavailable Llewellyn, N Parvin TYING IN MACHINE OPERATOR Unavailable Unavailable Gennaro, N Parvin TYING IN MACHINE OPERATOR Unavailable Unavailable Gennaro, N Parvin TYING IN MACHINE OPERATOR Unavailable Unavailable Llewellyn, N Parvin TYING IN MACHINE OPERATOR Unavailable Unavailable Gennaro, N Parvin TYING IN MACHINE OPERATOR Unavailable Unavailable Llewellyn, N Parvin TYING IN MACHINE OPERATOR Unavailable Unavailable Llewellyn, N Parvin TYING IN MACHINE OPERATOR Unavailable Unavailable SCOTT BROOKS MD Unavailable Unavailable [...] SCOTT NELSON Unavailable Unavailable LEOBARDO (BRODERICK), N ANDERI RPA-C Unavailable Unavailable LEOBARDO (BRODERICK), N ANDREI [...] LEOBARDO (BRODERICK), N ANDREI RPA-C Unavailable Unavailable PascaleNova TYING IN MACHINE OPERATOR Unavailable Unavailable Pascale, L Charlotte TYING IN MACHINE OPERATOR Unavailable Unavailable Pascale, L Charlotte TYING IN MACHINE OPERATOR Unavailable Unavailable Pascale, L Charlotte TYING IN MACHINE OPERATOR Unavailable Unavailable Pascale, L Charlotte TYING IN MACHINE OPERATOR Unavailable Unavailable Pascale, L Charlotte TYING IN MACHINE OPERATOR Unavailable Unavailable Pascale, L Charlotte TYING IN MACHINE OPERATOR Unavailable Unavailable Pascale, L Charlotte TYING IN MACHINE OPERATOR Unavailable Unavailable Pascale, L Charlotte TYING IN MACHINE OPERATOR Unavailable Unavailable Pascale, L Charlotte TYING IN MACHINE OPERATOR Unavailable Unavailable Pascale, L Charlotte TYING IN MACHINE OPERATOR Unavailable Unavailable Pascale, L Charlotte TYING IN MACHINE OPERATOR Unavailable Unavailable Pascale, L Charlotte TYING IN MACHINE OPERATOR Unavailable Unavailable Pascale, L Charlotte TYING IN MACHINE OPERATOR Unavailable Unavailable Pascale, L Charlotte TYING IN MACHINE OPERATOR Unavailable Unavailable Pascale, L Charlotte TYING IN MACHINE OPERATOR Unavailable Unavailable Pascale, L Charlotte TYING IN MACHINE OPERATOR Unavailable Unavailable Pascale, L Charlotte TYING IN MACHINE OPERATOR Unavailable Unavailable Pascale, L Charlotte TYING IN MACHINE OPERATOR Unavailable Unavailable Pascale, L Charlotte TYING IN MACHINE OPERATOR Unavailable Unavailable Pascale, L Charlotte TYING IN MACHINE OPERATOR Unavailable Unavailable Pascale, L Charlotte TYING IN MACHINE OPERATOR Unavailable Unavailable Re-disclosure Warning The records that [...] is protected by Article 27-F of the [place] [employer] law. If you continue you may have access to information: Regarding HIV / AIDS; Provided by facilities licensed or operated by the [place] Office of Mental Health; or Provided by the [place] Office for People With Developmental Disabilities. If such information is present, then the following [place] mandated warning applies: This information has been [...] law may result in a fine or nursing home sentence or both. A general authorization for [...] ) Outpatient Attender: Suzette Kirby PAReferrer: ANDREI PerrySPARKS) [facility] 05/29/2020 01:16:26 PM EST [facility] Recurring Patient Attender: Suzette BONILLA eferrer: ANDREI PerrySPARKS) [facility] 05/29/2020 11:59:04 AM EST [facility] Recurring Patient Referrer: ANDREI BOOTH (SPARKS) [facility] 05/28/2020 03:34:31 PM EST [facility] Recurring Patient Referrer: ANDREI BOOTH (SPARKS) [facility] 05/22/2020 06:35:[address] [facility] Outpatient SJP.MAIKOL-SJP.MAIKOL 05/15/2020 12:00:00 AM EST [facility] Recurring Patient Referrer: ANDREI BOOTH (SPARKS) [facility] 05/12/2020 09:23:27 AM EST [facility] Outpatient Attender: SCOTT De Jesus/Beth/Robert/Mumtaz pearl 04/15/2020 09:00:00 AM EST [facility] ([facility]) Outpatient Attender: Parvin Gage NP SJP.MAIKOL-SJP.MAIKOL 020 12:00:00 AM EST - 04/14/2020 09:47:29 AM EST [facility] [address] [facility] [address] 04/01/2020 12:00:00 AM EST eCW1 ([facility]) [place] [address] [facility] [place] [address] 03/21/2020 12:00:00 AM EST eCW1 ([facility]) Unknown [address] [facility] [place] [address] 03/13/2020 12:00:00 AM EST eCW1 ([facility]) Outpatient Referrer: Parvin CANDELARIA.CT-SJP.CT 02/26/2020 12:00:00 AM EDT [facility] Outpatient [address] [place] [address] 02/25/2020 12:00:00 AM EDT eCW1 ([facility]) Outpatient Attender: Parvin CANDELARIA.MAIKOL-SJP.MAIKOL 020 12:00:00 AM EDT - 02/19/2020 11:57:26 AM EDT [facility] Outpatient Attender: Michelle RAMOSMAIKOL-SJP.MAIKOL 10/01 12:00:00 AM EDT [facility] Outpatient Attender: Charlotte De Jesus/Beth/Robert/Rogelio 08/21/2019 02:30:00 PM EDT [facility] ([facility]) [address] [address] 08/20/2019 12:00:00 AM EDT eCW1 ([facility]) [address] [address] 08/17/2019 12:00:00 AM EDT eCW1 ([facility]) [address] [address] 08/03/2019 12:00:00 AM EDT eCW1 ([facility]) Outpatient Attender: Charlotte Ashraf NP Main Office 07/24/2019 01:00:00 PM EDT [facility] ([facility] [address] [address] 07/13/2019 12:00:00 AM EDT eCW1 ([facility]) Outpatient Referrer: Michelle RAMOSMAIKOL-SJP.MAIKOL 07/2019 12:00:00 AM EST [facility] [place] [address] [place] [address] 06/26/2019 12:00:00 AM EST eCW1 ([facility]) Outpatient Attender: Michelle Kent MDConsultant: Arabella RAMOSMAIKOL-SJP.MAIKOL 06/07/2019 02:43:57 PM EST - 06/07/2019 04:05:52 PM EST [facility] [place] [address] [facility], [facility] [address] 06/05/2019 12:00:00 AM EST eCW1 ([facility]) [facility] [place] [address] [facility] [address] 06/05/2019 12:00:00 AM EST eCW1 ([facility]) Outpatient [address] [facility] [address] 05/10/2019 12:00:00 AM EST eCW1 ([facility]) [facility] [place] [address] [facility] [address] 05/08/2019 12:00:00 AM EST eCW1 ([facility]) Immunizations Vaccine Date Status Description Data Source(s) INFLUENZA VIRUS VACCINE QUADRIVAL 4377-6670(6 MOS AND UP)/PF 01/09/2020 12:00:00 AM EDT completed [facility] Medications Medication Brand Name Start Date Product Form Dose Route Admi nistrative Instructions Pharmacy Instructions Status Indications Reaction Description Data Source(s) 20 mg 06/18/2020 12:00:00 AM EST tablet 10 TAKE ONE TABLET BY MOUTH TWO TIMES A DAY TAKE ONE TABLET BY MOUTH TWO TIMES A DAY SOLD: 06/19/2020 [facility] POLYETHYLENE GLYCOL 3350 142 MG/ML Oral Solution [Miralax] M iralax 04/15/2020 12:00:00 AM EST active M EDENT ([facility], ) magnesium citrate 58.2 MG/ML Oral Solution Magnesium Citrate 04/15/2020 12:00:00 AM EST active [facility] ([facility], ) meloxicam 15 MG Oral Tablet meloxicam (MOBIC) 15 MG ta blet meloxicam (MOBIC) 15 MG tablet 04/01/2020 12:00:00 AM EST 15 mg Oral active Take 15 mg by mouth daily [facility] atorvastatin 40 MG Oral Tablet atorvastatin (LIPITOR) 40 MG tablet atorvastatin (LIPITOR) 40 MG tablet 04/01/2020 12:00:00 AM EST 40 mg Oral active Take 40 mg by mouth daily [facility] atorvastatin 40 MG Oral Tablet Atorvastatin Calcium 40 MG Atorvastatin Calcium 40 MG 04/01/2020 12:00:00 AM EST 1.0 {tablet} activ e Atorvastatin Calcium 40 MG eCW1 ([facility]) 15 mg 04/01/2020 12:00:00 AM EST tablet 90 TAKE ONE TABLET BY MOUTH EVERY DAY TAKE ONE TABLET BY MOUTH EVERY DAY SOLD: 06/19/2020 [facility] 15 mg 04/01/2020 12:00:00 AM EST tablet [...] {tablet} active Meloxicam 1 5 MG eCW1 ([facility]) Metoprolol Tartrate 50 MG Oral Tablet me toprolol tartrate (LOPRESSOR) 50 MG tablet metoprolol tartrate (LOPRESSOR) 50 MG tablet 02/21/2020 12:0 0:00 AM EDT active One tablet by mo uth the night before and morning of the procedure [facility] 50 mg 02/21/2020 12:00:00 AM EDT tablet [...] CPAP 08/23/2019 12:00:00 AM EDT active [facility] ([facility], ) Ibuprofen 200 MG Oral Tablet ibuprofen (ADVIL,MOTRIN) 200 MG tablet ibuprofen (ADVIL,MOTRIN) 200 MG tablet 200 mg Oral aborted Take 200 mg by mouth every 6 (six) hours as needed for pain [facility] Insurance Providers Payer name Policy type / Coverage type Policy ID Covered alliance party ID Covered alliance party's relationship to major Policy Major Plan Information MEDICARE COMPLETE [id number] SP [id number] [facility] Medicare Complete F [id number] SELF [id number] MEDICARE COMPLETE [id number] SP [id number] [facility] MEDICARE [id number] Lela [id number] [facility] Medicare Complete F [id number] SELF [id number] [facility] MEDICARE [id number] 1 MEDICARE COMPLETE [id number] SP [id number] [facility] [id number] SP [id number] [facility] [id number] SP [id number] ANSI-Medicare Part B [id number] ANSI-Medicare Part B [id number] [facility] [id number] Self [id number] [facility] [id number] SP [id number] MEDICARE COMPLETE [id number] SP [id number] [facility] [id number] SP [id number] United HLCR/Medicare Solu Commercial [id number] Self [id number] United HLCR/Medicare Solu Commercial [id number] Self [id number] [place] HLCR/Medicare Solu Commercial [id number] Self [id number] [facility] MGD MEDICARE [id number] SP [id number] [employer] P [id number] S [id number] [employer] [id number] SP [id number] [employer] P [id number] S [id number] Problems, Conditions, and Diagnoses Code Display Name Description Problem Type Effective Dates Data Source(s) E78.5 Hyperlipidemia Hyperlipidemia [id number] 04/14/2020 12:00: 00 AM EST [facility] I25.10 Coronary artery disease Coronary artery disease 070082 04/14/2020 12:00:00 AM EST [facility] E78.2 [id number] Mixed hyperlipidemia Problem 04/01/2020 12:0 0:00 AM EST eCW1 ([facility]) G89.29 [id number] Other chronic pain Problem 02/25/2020 12:00: 00 AM EDT eCW1 ([facility]) R20.2 [id number] Bilateral leg paresthesia Problem 02/25/2020 12:00:00 AM EDT eCW1 ([facility]) I77.810 Ascending aorta dilatation Ascending aorta dilatation [id number] 10/23/2019 12:00:00 AM EDT [facility] [id number] Obstructive sleep apnea syndrome Obstructive sle ep apnea syndrome Problem 08/21/2019 12:00:00 AM EDT [facility] ([facility] OLIVIA ladd) I77.810 [id number] Ascending aorta dilatation Problem 0 12:00:00 AM EDT eCW1 ([facility]) I77.810 094002353 Dilated aortic root Problem 08/20/2019 12:00 :00 AM EDT eCW1 ([facility]) I77.810 [id number] Ascending aorta dilatation Problem 0 12:00:00 AM EDT eCW1 ([facility]) 24294449 Sleep apnea Sleep apnea Problem 07/24/2019 12:00:00 AM EDT [facility] ([facility] 2695029 Disturbance of consciousness Disturbance of consciousn ess Problem 07/24/2019 12:00:00 AM EDT [facility] ([facility] [id number] Difficulty breathing Difficulty breathing Problem 07/24/2019 12:00:00 AM EDT [facility] ([facility] F43.22 89169262 Adjustment disorder with anxiety Problem 06/28/2019 12:00:00 AM EST eCW1 ([facility]) F43.22 00027248 Adjustment disorder with anxiety Problem 06/28/2019 12:00:00 AM EST eC1 ([facility]) G47.33 JUAN (obstructive sleep apnea) JUAN (obstructive sleep a pnea) 57097392 06/07/2019 12:00:00 AM EST [facility] R94.31 Abnormal EKG Abnormal EKG [id number] 06/06/2019 12:00:00 A M [facility] R40.0 [id number] Daytime somnolence Problem 06/05/2019 12:0 0:00 AM EST [facility] ([facility]) E78.5 Hyperlipidemia, unspecified Hyperlipidemia, unspecifie d Diagnosis 04/14/2020 09:15:26 AM [facility] R07.89 Other chest pain Other chest pain Diagnosis 04/14/2020 09 :15:26 AM [facility] I77.810 Thoracic aortic ectasia Thoracic aortic ectasia Diagno sis 04/14/2020 09:15:26 AM [facility] R94.31 Abnormal electrocardiogram [ECG] [EKG] A bnormal electrocardiogram (ECG) (EKG) Diagnosis 04/14/2020 09:15:26 AM [facility] I25.10 Atherosclerotic heart diseas e [place] coronary artery without angina pectoris Atherosclerotic heart disease [place] Diagnosis 04/14/2020 09:15:26 AM [facility] K58.0 Irritable bowel syndrome with diarrhea I rritable bowel syndrome with diarrhea Diagnosis 02/19/2020 11:17:20 AM EDT [facility] G47.33 Obstructive sleep apnea (adult) (pediatr ic) Obstructive sleep apnea (adult) (pediatr Diagnosis 10/23/2019 09:35:07 AM EDT [facility] R07.2 Precordial pain Precordial pain Diagnosis 06/07/2019 02:4 3:57 PM EST [facility] Surgeries/Procedures Procedure Description Date Indications Data Source(s) Office Visit, Est Pt., Level 4 PC 08/20/2019 12:00:00 AM EDT eCW1 ([facility]) Office Visit, Est Pt., Level 2 FC 08/20/2019 12:00:00 AM EDT eCW1 ([facility]) NO CHARGE VISIT 08/17/2019 12:00:00 AM EDT eCW1 ([facility]) PSYTX W PT 45 MINUTES 08/03/2019 12:00:00 AM EDT eCW1 ([facility]) PSYCH DIAGNOSTIC EVALUATION 06/26/2019 12:00:00 AM EST eCW1 ([facility]) Office Visit, Est Pt., Level 3 PC 06/05/2019 12:00:00 AM EST eCW1 ([facility]) Results ID Date Data Source [id number] 06/18/2020 [facility]20[facility] Name Value Range Interpretation Code Description Data Destini rce(s) Supporting Document(s) SARS coronavirus 2 RNA [Presence] in Res piratory specimen by GAGAN with probe detection NEGATIVE [facility] This lab was ordered by [facility] a nd reported by [facility]. ID Date Data Source [id number] 05/29/2020 01:16:26 PM EST [facility] PCName: Kasandra SinghnDOB: 1955Provider: Consuelo Kirby: 05/29/2020 Chief ComplaintChronic low back pain. [facility] Treatment [facility] Patient has signed a [facility] Controlled Substance and Treatment Agreement. [...] ting or bleeding disorders; denies seeing a broadcast operations manager. See initial patient paperwork dated 05/29/2020. I [...] a safe and effective treatment plan. - RECEPTIONIST/TELEPHONE OPERATOR: The patient was counseled on the following: [...] rce(s) Supporting Document(s) ID Date Data Source [id number] 02/26/2020 09:58:10 AM EDT [address] [id number] Name: KASANDRA MONTANOOB: 1955Sex: MOrdering Provider: PARVIN Lunarilaura Prov: PARVIN GAGERefanshul Provider: Procedure Performed: [facility] CT LUNG ONLY CARDIOExam Date: 02/26/2020 09:39MRN: [id number] Number: [id number] Class: UnknownAccount #: [id number] for Exam: Irritable bowel syndrome with diarrheaTechnique: [...] Nitin Ernst On 02/26/2020 9:58 AMWorkstation ID: [id number] Name Value Range Interpretation Code Description Data Destini rce(s) Supporting Document(s) ID Date Data Source [id number] 02/26/2020 09:54:40 AM EDT [facility] This is a summary report. The complete [...] RISK) 02/25/2020 04:39:54 AM EDT eCW1 ( [facility]) Name Value Range Interpretation Code Description Data Destini rce(s) Supporting Document(s) Triglyceride [Mass/volume] in Serum or Plasma by calculation 204 TRIGLYCERIDES LEVEL eCW1 ([facility]) Cholesterol in HDL [Moles/volume] in Serum or Plasma 45 HDL CHOLESTEROL eCW1 ([facility]) Cholesterol [Moles/volume] in Serum or Plasma 229 CHOLESTEROL LEVEL eCW1 ([facility]) 184 NON-HDL-C eCW1 ([facility]) Cholesterol in LDL [Mass/volume] in Serum or Plasma by calculation 143 LDL CHOLESTEROL eCW1 ([facility]) 5.088 CHOLESTEROL RISK RATIO eCW1 ([facility]) ID Date Data Source [id number] 02/25/2020 04:39:54 AM EDT eCW1 ([facility]) Name Value Range Interpretation Code Description Data Destini rce(s) Supporting Document(s) Hemoglobin A1c/Hemoglobin.total in Blood 5.3 HEMOGLOBIN A1c eCW1 ([facility]) ID Date Data Source Comprehensive Metabolic Profile (CMP) 02/25/2020 04:39:54 AM EDT eCW1 ([facility]) Name Value Range Interpretation Code Description Data Destini rce(s) Supporting Document(s) 14 BLOOD UREA NITROGEN eCW1 ([facility]) 85 GLUCOSE, FASTING eCW1 ([facility]) 139 SODIUM LEVEL eCW1 ([facility]) 0.90 CREATININE FOR GFR eCW1 ([facility]) > 60.0 GLOMERULAR FILTRATION RATE eCW 1 ([facility]) 4.3 POTASSIUM SERUM eCW1 ([facility]) 105 CHLORIDE LEVEL eCW1 ([facility]) 9.8 CALCIUM LEVEL eCW1 ([facility]) 29 CARBON DIOXIDE LEVEL eCW1 ([facility]) 24 AST/SGOT eCW1 ([facility]) 98 ALKALINE PHOSPHATASE eCW1 ([facility]) 0.5 BILIRUBIN,TOTAL eCW1 ([facility]) 36 ALT/SGPT eCW1 ([facility]) 7.9 TOTAL PROTEIN eCW1 ([facility]) 4.3 ALBUMIN eCW1 ([facility]) 1.2 ALBUMIN/GLOBULIN RATIO eCW1 ([facility]) ID Date Data Source CBC with Differential 02/25/2020 04:39:54 AM EDT eCW1 ([facility]) Name Value Range Interpretation Code Description Data Destini rce(s) Supporting Document(s) 7.6 WHITE BLOOD COUNT eCW1 ([facility]) 5.73 RED BLOOD COUNT eCW1 ([facility]) 17.2 HEMOGLOBIN eCW1 ([facility]) 30.0 MEAN CORPUSCULAR HEMOGLOBIN eC W1 ([facility]) 92.0 MEAN CORPUSCULAR VOLUME eCW1 ( [facility]) 52.7 HEMATOCRIT eCW1 ([facility]) 32.6 MEAN CORPUSCULAR HGB CONC eCW1 ([facility]) 208 PLATELET COUNT, AUTOMATED eCW1 ([facility]) 54.1 NEUTROPHILS % eCW1 ([facility]) 14.3 RED CELL DISTRIBUTION WIDTH eC W1 ([facility]) 7.9 MONO % eCW1 ([facility]) 35.6 LYMPH % eCW1 ([facility]) 1.4 EOS % eCW1 ([facility]) 0.7 BASO % eCW1 ([facility]) 0.6 MONO # eCW1 ([facility]) 4.1 NEUTROPHILS # eCW1 ([facility]) 2.7 LYMPH # eCW1 ([facility]) 0.1 EOS # eCW1 ([facility]) 0.1 BASO # eCW1 ([facility]) ID Date Data Source [id number] 07/03/2019 01:08:52 PM EST [facility] Name Value Range Interpretation Code Description Data Destini rce(s) Supporting Document(s) &PDF [facility] NSVSPn6lOsUKWqZi80/WLQyfULIuf4FjKSbpAMh4SEllOMCmW8JggBnlNYDCPC2TL08dZWUCVB1gKw1t jIF [file] 4Npf+bpcRFQCS8xv9aFaD3AzXUlxr1Go/7BT+KiK3gIm1MGJbQdS+Nio1pJy6q8w/VlF/T2vnhXk+life insurance underwriter [file] AgICAgICAgICAgICAgICAgICAgICAgICAgICAgICAg ICAgICAgICAgICAgICAgICAgICAgICAgICAgICAgICAgICAgICANCiAgICAgICAgICAgICAgICAgICAg ICAgICAgICAgICAgICAgICAgICAgICAgICAgICAgICAgICAgICAgICAgICAgICAgICAgICAgICAgICAg ICAgICAgICAgICAgICAgICAgICANCiAgICAgICAgIC AgICAgICAgICAgICAgICAgICAgICAgICAgICAgICAgICAgICAgICAgICAgICAgICAgICAgICAgICAgIC AgICAgICAgICAgICAgICAgICAgICAgICAgICAgICANCiAgICAgICAgICAgICAgICAgICAgICAgICAgIC AgICAgICAgICAgICAgICAgICAgICAgICAgICAgICAg ICAgICAgICAgICAgICAgICAgICAgICAgICAgICAgICAgICAgICAgICANCiAgICAgICAgICAgICAgICAg ICAgICAgICAgICAgICAgICAgICAgICAgICAgICAgICAgICAgICAgICAgICAgICAgICAgICAgICAgICAg ICAgICAgICAgICAgICAgICAgICAgICANCiAgICAgIC AgICAgICAgICAgICAgICAgICAgICAgICAgICAgICAgICAgICAgICAgICAgICAgICAgICAgICAgICAgIC AgICAgICAgICAgICAgICAgICAgICAgICAgICAgICAgICANCiAgICAgICAgICAgICAgICAgICAgICAgIC AgICAgICAgICAgICAgICAgICAgICAgICAgICAgICAg ICAgICAgICAgICAgICAgICAgICAgICAgICAgICAgICAgICAgICAgICAgICANCiAgICAgICAgICAgICAg ICAgICAgICAgICAgICAgICAgICAgICAgICAgICAgICAgICAgICAgICAgICAgICAgICAgICAgICAgICAg ICAgICAgICAgICAgICAgICAgICAgICAgICANCiAgIC AgICAgICAgICAgICAgICAgICAgICAgICAgICAgICAgICAgICAgICAgICAgICAgICAgICAgICAgICAgIC AgICAgICAgICAgICAgICAgICAgICAgICAgICAgICAgICAgICANCiAgICAgICAgICAgICAgICAgICAgIC AgICAgICAgICAgICAgICAgICAgICAgICAgICAgICAg ICAgICAgICAgICAgICAgICAgICAgICAgICAgICAgICAgICAgICAgICAgICAgICANCjw/hDCaO6xnhUDk qnC0R6kmYz7OLp5KRZ8bf1SfDQIkBFzvyyCiOcmKVeKbINOoHxfZYbf4BBrhNH8TcOSsZ0HlY6YxREcf TZ7WWAFhMQFnnEVlKQBuLVVzZeG8RACjEYwuKN4BbE SxJRazZBNfXNHeMuFwZAKrBQ5FJEOmN464ihUiXh1FPe4DVmXePG2ivv9JVkToSGSdAamYOti2DBhwFP 5MkTLrB2GqfEBer4eEGnWkN3EOLEY7TSXxCs3BVTWlRiFoXCPzIRhjRU7gQDTuZRAYhIpnqcD0UE7GMO 6ovgAcSF0AMlKmAc7hXc3HPhVnV4IcP9YoFVDsYWTX ATkzHY7FRCFbFEW1SSEqVNXlNCSLPyQnK28aQR8JB6Cer16lCuE4LCNoEjJzNYpsYE86xKqjwxRymFQb iInpQS9HCt1+HIzhrbUnTosICbdjHGDCVyRmJbPSVpToQAGoTXKtJTYuKcS9RrSbMe6XIUIjEBDzQGCp BuXqFCAkOXWiYTkcUKYeUSE1GiI9ZZMcJGLyMG6CXy WsMDGpUWs1AONjPYWbDEGtbj6OGUYcKRSrBPF2BmDxDIJlYCTcQRozIGAeNIQiRRH3HAOaOLGjDP7HFc RfZNFaCOH4XFqbMRIwJHAcva1IODAzTFWtIYs2HUKjYHWeSTNcOKntRXPyPEU4HCfzJVYeQDQgWT6RHc OoUQZiLTJ2MtTwYKLrVZWxng5HTLKbVKQgFpGmRyTw ABHcLJLwHQdtEOLeLJP9AoS6AODtGOQsMH6ZDzPuHFMxPOlqVsdbDPRoFZIvnu1AOHNyLNJmIbW4GURz CGCyHFJnDAohMAMdUEP4CqP2ELXlHZSaWI3GKmOcSUEyBEc7FZGaPYJlVQPkyt8UGQHyLLMxMXxsTjZr WNGcLJHlZWizTTBeMEB2FWUgCVOdAWJcRQ5MUdXlXN KoOIF9ZZFuBVDuPEJaxr1VJUAsHRAlSxnaLhYtMTIeGJWfYMzpFZClMPI4UIStZTIxPSNcKO8HLmGbQG McWIy5AMguTBTpNDJpqd9HpIBeuGhdrd4VKYmKLa6GwNitBCJkKHagXs2zhDUzPSHtIHMLPs3NmvFpZV HzVOSOCSurBJZaSBYrNyLeVLX4TNajNzvhLqOaQAVu KMI1LDYhWsMcJ8AeLiK0TuGnXKPtPSPaTsJ6Y6QiZhKcJPN1TeipKxErMWLcEXK+RK1vMKw+Rq2Wg6Yv [id number] Procedure Social History Code Duration Value Status Description Data Source(s ) Smoking 04/01/2020 12:00:00 AM EST Current Smoker completed Curre nt Smoker eCW1 ([facility]) Alcohol intake 02/26/2020 12:00:00 AM EDT Never completed [facility] Cigarette pack-years 02/26/2020 12:00:00 AM EDT UNK completed [facility] Cigarettes smoked current (pack per day) - Reported 02/26/20 12:00:00 AM EDT UNK completed [facility] Smoking 02/26/2020 12:00:00 AM EDT Former smoker completed Former smoker [facility] Smoking 02/25/2020 12:00:00 AM EDT Current Smoker completed Curre nt Smoker eCW1 ([facility]) Smoking 02/25/2020 12:00:00 AM EDT Current Smoker completed Curre nt Smoker eCW1 ([facility]) Smoking 02/25/2020 12:00:00 AM EDT Current Smoker completed Curre nt Smoker eCW1 ([facility]) Smoking 10/11/2019 12:00:00 AM EDT - 11/30/2018 12:00:00 AM EDT Patient is a former smoker completed Patient is a former smoker [facility] ([facility]) Vital Signs ID Date Data Source UNK Name Value Range Interpretation Code Description Data Source(s) Body surface area Derived from formula 2.72 m2 2.72 m2 [facility] ([facility]) Body weight 165.564 kg 165.564 kg [facility] ([facility]) [place] body weight 172 [lb_av] 172 [lb_av] MEDEN T ([facility]) Body mass index (BMI) [Ratio] 50.9 kg/m2 50.9 k g/m2 [facility] ([facility]) Body weight 365.00 [lb_av] 365.00 [[facility]_av] [facility] Body height 71 [in_i] 71 [in_i] [facility] ([facility]) 5'11" Diastolic blood pressure 80 mm[Hg] 80 mm[Hg] [facility] ([facility]) Systolic blood pressure 124 mm[Hg] 124 mm[Hg] [facility] Body mass index (BMI) [Ratio] 49.37 kg/m2 49.37 kg/m2 [facility] Body weight 165.109 kg 165.109 kg [facility] Body height 182.9 cm 182.9 cm [facility] Respiratory rate 16 /min 16 /min [facility] Diastolic blood pressure 76 mm[Hg] 76 mm[Hg] eCW1 ([facility]) Systolic blood pressure 138 mm[Hg] 138 mm[Hg] e CW1 ([facility]) Body temperature 97.5 [degF] 97.5 [degF] eCW1 ( [facility]) Respiratory rate 18 /min 18 /min eCW1 ([facility]) Heart rate 83 /min 83 /min eCW1 ([facility]) Body mass index (BMI) [Ratio] 49.10 kg/m2 49.10 kg/m2 [facility] ([facility]) Body height [in_i] eCW1 ([facility]) Body weight 372.2 [lb_av] 372.2 [lb_av] eCW1 ([facility]) Diastolic blood pressure 90 mm[Hg] 90 mm[Hg] eCW1 ([facility]) Systolic blood pressure 140 mm[Hg] 140 mm[Hg] e CW1 ([facility]) Body temperature 97.2 [degF] 97.2 [degF] eCW1 ( [facility]) Respiratory rate 18 /min 18 /min eCW1 ([facility]) Heart rate 84 /min 84 /min eCW1 ([facility]) Body mass index (BMI) [Ratio] 48.23 kg/m2 48.23 kg/m2 eCW1 ([facility]) Body height [in_i] eCW1 ([facility]) Body weight 365.6 [lb_av] 365.6 [lb_av] eCW1 ([facility]) Body surface area Derived from formula 2.73 m2 2.73 m2 [facility] Body weight 166.471 kg 166.471 kg [facility] ([facility], ) [place] body weight 172 [lb_av] 172 [lb_av] MEDEN T ([facility], ) Body mass index (BMI) [Ratio] 51.2 kg/m2 51.2 k g/m2 [facility] Body weight 367.00 [lb_av] 367.00 [lb_av] MEDEN T ([facility], ) Body height 71 [in_i] 71 [in_i] [facility] ([facility], ) 5'11" Body temperature 97.2 [degF] 97.2 [degF] [facility] ([facility], ) Oxygen saturation in Arterial blood by Pulse oximetry 95 % 95 % [facility] ([facility], ) Heart rate 66 /min 66 /min [facility] ([facility], ) Diastolic blood pressure 80 mm[Hg] 80 mm[Hg] [facility] ([facility]) Systolic blood pressure 130 mm[Hg] 130 mm[Hg] [facility] Body weight 170.554 kg 170.554 kg [facility] ([facility]) Body mass index (BMI) [Ratio] 52.4 kg/m2 52.4 k g/m2 [facility] ([facility]) Body weight 376.00 [lb_av] 376.00 [lb_av] MEDEN T ([facility]) Body height 71 [in_i] 71 [in_i] [facility] ([facility]) 5'11" Body temperature 98.4 [degF] 98.4 [degF] [facility] ([facility]) Oxygen saturation in Arterial blood by Pulse oximetry 96 % 96 % [facility] ([facility]) Heart rate 98 /min 98 /min [facility] ([facility]) Diastolic blood pressure 78 mm[Hg] 78 mm[Hg] [facility] ([facility]) Systolic blood pressure 124 mm[Hg] 124 mm[Hg] [facility] Diastolic blood pressure 80 mm[Hg] 80 mm[Hg] eCW1 ([facility]) Systolic blood pressure 142 mm[Hg] 142 mm[Hg] e CW1 ([facility]) Body temperature 96.1 [degF] 96.1 [degF] W1 ( [facility]) Respiratory rate 18 /min 18 /min eCW1 ([facility]) Heart rate 79 /min 79 /min eCW1 ([facility]) Body mass index (BMI) [Ratio] 48.52 kg/m2 48.52 kg/m2 W1 ([facility]) Body height [in_us] eCW1 ([facility]) Body weight Measured 367.8 [lb_av] 367.8 [lb_av ] W1 ([facility]) Body mass index (BMI) [Ratio] [...] blood pressure 88 mm[Hg] 88 mm[Hg] eCW1 ([facility]) Systolic blood pressure 140 mm[Hg] 140 mm[Hg] e CW1 ([facility]) Body temperature 98.3 [degF] 98.3 [degF] eCW1 ( [facility]) Respiratory rate 18 /min 18 /min eCW1 ([facility]) Heart rate 80 /min 80 /min eCW1 ([facility]) Body mass index (BMI) [Ratio] 45.64 kg/m2 45.64 kg/m2 W1 ([facility]) Body height [in_us] eCW1 ([facility]) Body weight Measured 346 [lb_av] 346 [lb_av] eC W1 ([facility]) Diastolic blood pressure 88 mm[Hg] 88 mm[Hg] eCW1 ([facility]) Systolic blood pressure 142 mm[Hg] 142 mm[Hg] e CW1 ([facility]) Body temperature 97.3 [degF] 97.3 [degF] eCW1 ( [facility]) Respiratory rate 18 /min 18 /min eCW1 ([facility]) Heart rate 93 /min 93 /min eCW1 ([facility]) Body mass index (BMI) [Ratio] 46.46 kg/m2 46.46 kg/m2 W1 ([facility]) Body height [in_i] eCW1 ([facility]) Body weight 352.2 [lb_av] 352.2 [lb_av] eCW1 ([facility]) Patient Treatment Plan of Care Planned Activity Planned Date Details Description Data Source (s) atorvastatin 40 MG Oral Tablet 04/01/2020 12:00:00 AM EST [facility] meloxicam 15 MG Oral Tablet 04/01/2020 12:00:00 AM EST [facility] meloxicam 15 MG Oral Tablet 04/01/2020 12:00:00 AM EST eCW1 ([facility]) atorvastatin 40 MG Oral Tablet 04/01/2020 12:00:00 AM EST eCW1 ([facility]) Metoprolol Tartrate 50 MG Oral Tablet 02/21/2020 12:00:00 AM EDT [facility] Ibuprofen 200 MG Oral Tablet [facility]
[2020-06-24] MEDS: ENOXAPARIN 150MG/ML SYRINGE (J1650 PER 10MG) SC SCH ×2 (11:40→20:07)
[2020-06-24] MEDS: METOPROLOL TART 25 MG TABLET PO SCH ×3 (11:40→23:23)
[2020-06-24 12:12] LABS: CHOLESTEROL RISK RATIO 3.113 (<5)
[2020-06-24] MEDS ORDERED: DIGOXIN INJ 0.5 MG/2 ML AMP (J1160) IV STA (12:17)
[2020-06-24] MEDS ORDERED: AMIODARONE HCL 150 MG in IV 1 EA IV STA ×2 (14:13→16:23)
--- NOTE | 2020-06-24 14:38 | HPEPDOC ---
[facility] Medical History & Physical Date of Admission Jun 24, 2020 Date of Service: Jun 24, 2020 Attending Physician: Zeinab Mcclure MD History and Physical CHIEF COMPLAINT: chest pressure, palpitations in chest HISTORY OF PRESENT ILLNESS: Patient is a 65-year-old male with PMH of atypical chest pain, questionable peripheral neuropathy, chronic back pain, morbid obesity who presented to [facility] emergency room with the chief complaint of substernal/left-sided chest pressure and palpitations. The patient states he has symptoms like this to have been going on and off for over a year. He sees a breakfast attendant as outpatient for atypical chest pain which has essentially had a negative workup. The patient states the chest pain has been constant for 18 hours, is dull/pressure-like, localized, nonradiating. He appeared uncomfortable in bed but denies cough, nausea, vomiting, fevers, chills, recent illnesses. He does admit to occasional shortness of breath with increased palpitations of the chest. He came to the emergency room today because his symptoms did not improve at home. In the emergency room the patient had heart rate of the 150s, blood pressure 107/35, 96% on room air, respiratory rate was 20. He was given a total of 2 doses of IV Lopressor and 25 mg of by mouth Lopressor which did not improve his heart rate much. His blood pressure dropped and he was given 1 L bolus. Cardiol dagoberto was consulted and suggested full anticoagulation and another dose of 25 mg Lopressor as well as starting every 6 hours metoprolol tartrate 25 mg. Troponin was elevated at 0.70 and thought to be secondary to demand ischemia. ECG showed atrial flutter with an uncontrolled rate. The patient was admitted for further treatment of new onset atrial flutter with rapid ventricular rate, chest pressure. REVIEW OF SYSTEMS: Neg except mentioned above PAST MEDICAL HISTORY: Atypical chest pain Occasional palpitations Peripheral neuropathy Chronic back pain Morbid obesity PAST SURGICAL HISTORY: None FAMILY HISTORY: Father: Healthy. at 95 years old Mother: Diabetes mellitus type 2. at 78 years old SOCIAL HISTORY: Patient is a prior smoker 1 pack per day for 50 years. Quit in December 2019. He denies alcohol use and has a medical marijuana card for chronic back pain. He has a primary care physician whom he follows with regularly and his breakfast attendant is Dr. Kent. He is a full code. ALLERGIES: Please see below. HOME MEDICATIONS: Please see below. PHYSICAL EXAMINATION: VS: HR 150s, blood pressure 107/35, 96% on room air, respiratory rate was 20. CONSTITUTIONAL: Appears uncomfortable, AAO x 3 EYES: PERRLA, EOM intact HENT, MOUTH: Normocephalic, atraumatic, moist mucous membranes NECK: SUPPLE, no JVD, no lymphadenopathy, no carotid bruit CV: irregular rate, S1S2 normal, no murmurs/rubs/gallops RESPIRATORY: Clear to auscultation bilaterally, no rales/rhonchi/wheezes GI: obese abdomen, BS positive in 4 quadrants, soft, nontender, nondistended, no rebound or guarding, no organomegaly : Deferred MUSCULOSKELETAL: Normal ROM. No cyanosis, clubbing, swelling, joint deformity, extremity edema INTEGUMENTARY: Intact, no rashes, no lesions, no erythema NEUROLOGIC: Cranial Nerves II-XII are intact, no focal deficits PSYCHIATRIC: Mood and affect are normal LABORATORY DATA: Please see below IMAGING: CXR: No active disease CTA chest from 06/18/20: No CT evidence of pulmonary embolus. Intrarenal nephrolithiasis left kidney upper pole. Prominent heart unchanged. Minimal platelike atelectasis in the lung bases. Coronary CTA 01/2020: minimal plaque in coronary arteries (result read to me by cardiology) ASSESSMENT: 65 y/o M with PMH of intermittent chest palpitations and atypical chest pain, HTN, HLD, morbid obesity admitted for further treatment of new onset atrial flutter with rapid ventricular rate. PLAN: New onset atrial flutter with RVR with substernal chest pressure/pain, elevated troponin, demand ischemia -Elevated trop at 0.7 --> 0.95 due to uncontrolled rates. -Multiple ECGs: atrial flutter with elevated HR -No known infection, recent CTA chest from 06/18/20 neg, TSH wnl -Recent coronary CTA: minimal plaque in coronary arteries -S/p lopressor 5 mg IV x 2, metoprolol 25 mg Po x2, digoxin 0.5 mg -Per cardiology, can try amiodarone if BP holding but may need to cardiovert later this afternoon -F/u echocardiogram -NPO status -Enoxaparin 150 mg SC BID -Cardiology (Dr. Kent) consulted -Tele Peripheral neuropathy -Not currently on home medications -Allergic to gabapentin Chronic back pain -Stable -Tylenol, holding NSAID Morbid obesity -BMI 45 -Complicating care -F/u HbA1c, lipid panel -F/u with PCP DVT px -Enoxaparin SC BID DISPOSITION: Admitted as acute inpatient. Cardiology consulted and following closely. When medically improved, plan is discharge home. Vital Signs Vital Signs Date Time Temp Pulse Resp B/P (MAP) Pulse Ox O2 Delivery O2 Flow Rate FiO2 06/24/20 14:08 160 06/24/20 13:55 97.0 20 121/77 (92) 95 Room Air Laboratory Data Labs 24H Laboratory Tests 2 06/24/20 08:27: Immature Granulocyte % (Auto) 0.5, Neutrophils (%) (Auto) 72.9H, Lymphocytes (%) (Auto) 20.9L, Monocytes (%) (Auto) 5.1, Eosinophils (%) (Auto) 0.3, Basophils (%) (Auto) 0.3, Neutrophils # (Auto) 8.0, Lymphocytes # (Auto) 2.3, Monocytes # (Auto) 0.6, Eosinophils # (Auto) 0.0, Basophils # (Auto) 0.0, Nucleated Red Blood Cells % (auto) 0.0, Prothrombin Time 13.0, Prothromb Time International Ratio 0.96, Activated Partial Thromboplast Time 26.4, Magnesium Level 2.1, Total Creatine Kinase 102, Creatine Kinase MB 5.2H, Creatine Kinase MB Relative Index 5.10H, Troponin I 0.72H, Thyroid Stimulating Hormone (TSH) 1.840, Free Thyroxine 1.50H 06/24/20 08:30: POC Glucose (Misc Panel) 114H, POC Sodium (Misc Panel) 143, POC Potassium (Misc Panel) 4.0, POC Chloride (Misc Panel) 113H, POC Total CO2 (Misc Panel) 22.0L, POC Blood Urea Nitrogen (Misc Panel 30H, POC Ionized Calcium (Misc Panel) 5.1, POC Creatinine (Misc Panel) 0.9, POC Hematocrit (Misc Panel) 55.0H 06/24/20 11:16: Troponin I 0.83H 06/24/20 11:17: Triglycerides Level 109, Total Cholesterol 137, LDL Cholesterol 71, Non-HDL Cholesterol (LDL + VLDL) 93, Total HDL Cholesterol 44, Cholesterol/HDL Ratio 3.113 06/24/20 11:31: Coronavirus (COVID-19)(PCR) NEGATIVE 06/24/20 12:47: Urine Color YELLOW, Urine Appearance CLEAR, Urine pH 6.0, Urine Specific [place] 1.027, Urine Protein NEGATIVE, Urine Glucose (UA) NEGATIVE, Urine Ketones NEGA TIVE, Urine Blood NEGATIVE, Urine Nitrite NEGATIVE, Urine Bilirubin NEGATIVE, Urine Urobilinogen 0.2, Urine Leukocyte Esterase NEGATIVE, Urine WBC (Auto) 1, Urine RBC (Auto) 0, Urine Hyaline Casts (Auto) 1, Urine Bacteria (Auto) NEGATIVE, Urine Squamous Epithelial Cells 0, Urine Mucus (Auto) SMALL, Urine Sperm (Auto) 06/24/20 13:04: Troponin I 0.95H CBC/BMP Laboratory Tests 06/24/20 08:27 Home Medications Scheduled Meloxicam (Meloxicam) 15 Mg Tablet, 15 MG PO QHS Allergies Coded Allergies: gabapentin (Verified Adverse Reaction, Intermediate, suicial thoughts, 10/23/19) pregabalin (Verified Adverse Reaction, Intermediate, suicidal thoughts, 10/23/19) tizanidine (Verified Adverse Reaction, Intermediate, suicidal thoughts, 10/23/19) A-FIB/CHADSVASC A-FIB History Current/History of A-Fib/PAF?: No Current PO Anticoag Therapy: No Age/Risk Factor Scoring CHADSVASC: CHADSVASC Response (Comments) Value Age Risk Factor Age < 65 years old 0 Gender Risk Factor Male 0 Hx of CHF No 0 Hx of HTN No 0 Hx of Stroke/TIA/or VTE No 0 Hx of Diabetes No 0 Hx of Vascular Disease No 0 Total 0 Treatment Treatment ordered: Other Other anticoagulant ordered: enoxaparin BID Zeinab cMclure MD Jun 24, 2020 14:38
--- NOTE | 2020-06-24 16:49 | ECGEPIP ---
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
[2020-06-24] MEDS ORDERED: DIGOXIN INJ 0.5 MG/2 ML AMP (J1160) IV ONE ×2 (18:00→23:59)
--- NOTE | 2020-06-24 18:41 | IPN ---
PROGRESS NOTE DATE: 06/24/2020 SUBJECTIVE: Mr. Matt presented to [facility] ER earlier this morning complaining about chest discomfort. He was found to be in atrial flutter with 2:1 conduction and ventricular rate approximately 150 beats per minute. He had mildly elevated troponin of 0.72 that eventually flakita up to 0.83 and the last one is 0.95. He continued to be very symptomatic. Attempts were made to slow down his heart rate using initially beta-blockers, I.V. and then p.o., then Digoxin was added and eventually he received two doses of Amiodarone. Each intervention had brief and not very impressive temporary affect. Considering the fact that he has ongoing chest discomfort and his troponin is elevated, I believe it is necessary to pursue DC cardioversion because he clearly does not tolerate tachycardia very well. I saw the patient at the bedside, examined him, had a long discussion about his condition and possibilities of treatment. He did sign appropriate consent. I explained that the potential complications can include need for pacemaker, stroke and also risk of aspiration pneumonia, but considering ongoing symptoms and our difficulty controlling his rate, I do not see any good alternative option. He signed the appropriate consent. Unfortunately, we had to wait with the procedure because he had lunch and consequently the risk of sedation was higher. I am hoping that the cardioversion will lead to restorationist of sinus rhythm without any earlier recurrence. We will continue monitoring patient on telemetry and then decide about assisted management tomorrow morning. Please see full note dictated by Dr. Duron for details of his medical history. [facility]ITAL[facility]ed[facility]
[2020-06-24] MEDS ORDERED: LIDOCAINE 2% 100MG/5ML SDV (FOR ANES.) As Ordered ONE (19:09)
[2020-06-24] MEDS ORDERED: propofoL 200 MG/20 ML VIAL As Ordered ONE (19:09)
[2020-06-24] MEDS ORDERED: ENOXAPARIN 150MG/ML SYRINGE (J1650 PER 10MG) SC ONE (21:00)
[2020-06-25 00:01] VITALS: BP 125/72
[2020-06-25 04:00] VITALS: BP 122/69
[2020-06-25] MEDS: METOPROLOL TART 25 MG TABLET PO SCH ×3 (05:27→20:33)
[2020-06-25 06:10] LABS: HEMATOCRIT 52.6 % (42.0-52.0); MEAN CORPUSCULAR HEMOGLOBIN 29.3 pg (27.0-33.0); MEAN CORPUSCULAR HGB CONC 32.3 g/dl (32.0-36.5); MEAN CORPUSCULAR VOLUME 90.7 fl (80.0-96.0); PLATELET COUNT, AUTOMATED 187 10^3/uL (150-450); WHITE BLOOD COUNT 7.6 10^3/uL (4.0-10.0)
[2020-06-25 06:33] LABS: ALBUMIN 3.2 GM/DL (3.2-5.2); ALT/SGPT 54 U/L (12-78); BILIRUBIN,TOTAL 0.7 MG/DL (0.2-1.0); BLOOD UREA NITROGEN 25 MG/DL (7-18); CALCIUM LEVEL 8.9 MG/DL (8.8-10.2); CARBON DIOXIDE LEVEL 25 MEQ/L (21-32); CHLORIDE LEVEL 110 MEQ/L (98-107); CREATININE FOR GFR 0.82 MG/DL (0.70-1.30); GLOMERULAR FILTRATION RATE > 60.0 (>49); GLUCOSE, FASTING 84 MG/DL (70-100); POTASSIUM SERUM 3.7 MEQ/L (3.5-5.1); SODIUM LEVEL 142 MEQ/L (136-145); TOTAL PROTEIN 6.5 GM/DL (6.4-8.2); TROPONIN I 1.13 NG/ML (< 0.10)
[2020-06-25 07:28] VITALS: BP 113/71
[2020-06-25] MEDS: ENOXAPARIN 150MG/ML SYRINGE (J1650 PER 10MG) SC SCH (09:05)
--- NOTE | 2020-06-25 09:33 | CR ---
CONSULTATION DATE: 06/24/2020 Dictated on behalf of Dr. Kent. HISTORY OF PRESENT ILLNESS: Juan Diego Matt is a 65-year-old male with a history of chronic venous insufficiency, degenerative disk disease and grade one diastolic congestive heart failure (EF 55%-65%), hypertension, who presented to the E.D. this morning with chest pain and shortness of breath. Notably the patient was seen in the E.D. on June 18, 2020 for atypical chest pain, the same complaint, and was sent home on Tramadol and told to follow up with Cardiology. Today the patient reports that his symptoms started suddenly last night before bed, where he started to feel squeezing chest pain, back pain and shortness of breath. He did not sleep at all last night. The patient reports that he has been dealing with issues with chest pain for the past 6 months and has not been told there has been any obvious etiology for his chest pain. He denies any recent illnesses including no nausea, vomiting or diarrhea. He has not had any upper respiratory infections or GI infections that he knows of. In the Emergency Room he was found to be in atrial flutter with heart rate in the 150's. He was given IV Metoprolol 5 mg x2 as well as 25 mg p.o. Metoprolol x2 and eventually 0.5 mg Digoxin. Cardiology was called as soon as he got his rate control, his blood pressure dropped to systolic, around 100. At the time of this note, the patient has been given Amiodarone and is still in atrial flutter, but his heart rate is now in the 70's and he is feeling much better. PAST MEDICAL HISTORY: The patient's past medical history is significant for: 1. Chronic venous insufficiency. 2. Degenerative disk disease, lumbosacral. 3. Chronic grade one diastolic dysfunction (EF 55-65% on echo in July of 2019). 4. Hypertension. 5. Morbid obesity. 6. Obstructive sleep apnea on CPAP. 7. Hyperlipidemia. 8. Coronary artery disease. PAST SURGICAL HISTORY: The patient has no past surgeries. FAMILY HISTORY: The patient has a mother with a heart attack, hypertension, diabetes and heart failure and father with dementia and sudden due to unknown causes. HOME MEDICATIONS: 1. Meloxicam 15 mg daily. 2. Metoprolol Tartrate 50 mg daily. SOCIAL HISTORY: The patient is with three children, a former smoker who quit in 2019 and denies any drug or alcohol use at this time. REVIEW OF SYSTEMS: Constitutional: Negative for any unexpected weight change, no fevers, no chills, no night sweats. Eyes: Negative for visual disturbance. Respiratory: Reports some shortness of breath when his heart rate is high. Denies any wheezing. Cardiovascular: He reports chest tightness and pain around the breast bone on the left side, some palpitations and does report some worsening leg swelling. GI: Denies any nausea, vomiting or diarrhea. Denies any blood in his stool. Denies any constipation or diarrhea. Musculoskeletal: He denies any arthralgias or myalgias. Neurologic: He denies any dizziness, syncope, weakness, or lightheadedness. PHYSICAL EXAMINATION: VITAL SIGNS: At this time temperature is 97.6, pulse is 156 and irregular, respiratory rate is 20, blood pressure is 111/61 and pulse oximetry is 95% on room air. GENERAL APPEARANCE: He is sitting up at the bedside. He looks uncomfortable. He is speaking in full sentences and pleasant, responsive to all my questions. HEENT: Normocephalic and atraumatic. Pupils are equal, round and reactive to light. The extraocular muscles are intact. NECK: Supple with no thyromegaly, no lymphadenopathy. RESPIRATORY: Clear to auscultation bilaterally with no adventitious breath sounds appreciated. CARDIOVASCULAR: Tachycardic, irregular. No obvious murmurs, rubs or gallops, although this is difficult to ascertain as his heart rate is quite fast. EXTREMITIES: Trace edema in lower extremities bilaterally. His pulses are intact and brisk. ABDOMEN: Obese, protuberant, but soft, nontender to palpation. No masses, no organomegaly, positive bowel sounds. MUSCULOSKELETAL: He moves all extremities well. No joint swelling. NEUROLOGICAL: No obvious focal deficits. PSYCH: He seems quite anxious. Otherwise he is awake, alert and oriented x3. SKIN: No obvious rashes. LABORATORY DATA: On this admission - white blood cell count of 11.0, hemoglobin of 18.4, hematocrit of 56 and platelet count of 248. Chemistries: Sodium of 143, potassium of 4.0, chloride of 113, CO2 of 22, BUN of 30, creatinine of 0.9 and his magnesium was 2.1. Total CK was 102. His troponins originally were 0.72, have risen to 0.83 and now 0.95. Total cholesterol is 137, triglycerides 109. LDL is 71, HDL is 44, TSH is 1.84, and free T-4 is 1.5. A urinalysis was drawn and was negative for any infection. COVID test was drawn and was negative. IMAGING DATA: The patient did have a chest x-ray done in the E.D. which showed that the lungs are symmetrically aerated and free of infiltrate. There is no fluid seen. Heart size is borderline unchanged from prior. No bony abnormalities and no active disease. Of note, the patient did have a CTA when he came into the E.D. on June 18 and that was read as no CT evidence of pulmonary embolus, intrarenal nephrolithiasis left kidney upper pole, prominent heart unchanged, minimal plate-like atelectasis in the lung bases. On EKG it shows atrial flutter at a rate of 155. Multiple EKGs have been done while the patient was in the E.D. ASSESSMENT: This is a 65-year-old male with a history of coronary artery disease, chronic diastolic congestive heart failure, hyperlipidemia and hypertension who presents with several hours of shortness of breath, palpitations and chest pain, found to be atrial flutter in the 150's, admitted for rate control and possible intervention. PLAN: 1. Thus far the patient has received as stated before, 0.5 mg IV Digoxin, 50 mg p.o. Metoprolol as well as the 5 mg push of Metoprolol x2. With those interventions the patient's heart rate did not come down appropriately. However he did receive Amiodarone 150 mg IV around 14:22 which has brought his heart rate down to the 80's and yet he is still in atrial flutter. The plan for this afternoon is possibly for cardioversion in the O.R., however the patient did eat lunch around noon and will have to wait until he has been n.p.o. for 6 hours. In addition to that, agree with Hospitalist order for Lovenox 150 mg weight based prophylactic dose at this time and if his heart rate does not return to sinus rhythm, will need to undergo the cardioversion. As far as the etiology of this atrial flutter, this is yet to be ascertained. The patient does not seem to be infected. His vital signs are essentially stable other than his heart rate and blood pressure which has responded to medications. His white blood cell count is 11.0 and there are no signs of infection at this time. In looking through Dr. 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 2. Chronic diastolic congestive heart failure - The patient appears euvolemic on exam. His labs show elevated hemoglobin and hematocrit which may be concerning for hemoconcentration. He has been given one liter bolus in the E.D. and we will see how his hemoglobin improves from there. Also we will await the results of echocardiogram which was done today, this afternoon. As the last echocardiogram in July 2019 showed preserved left ventricular function and mild LVH. Addendum MD Mehdi: Patient seen and examined by myself. I agree with 's note. Because of ongoing chest pain and difficulty accomplishing consistent rate control we proceeded with d/c cardioversion - please see separate report. MTDD
--- NOTE | 2020-06-25 10:42 | IPN ---
PROGRESS NOTE DATE: 06/25/2020 SUBJECTIVE: Mr. Matt was seen and examined at the bedside this morning. He states he is feeling well and he was able to sleep well. He did undergo cardioversion yesterday in the operating room (OR) and subsequently reverted back to sinus rhythm. He states that he is no longer having palpitations, but just occasional chest pain. He denies any shortness of breath. No nausea. No vomiting or diarrhea at this time. OBJECTIVE: VITAL SIGNS: Temperature 97.1, pulse 53 and regular, respiratory rate 18, blood pressure 113/71, pulse oximetry 94% on room air. GENERAL: He is laying in bed. He is calm, cooperative, no acute distress, very pleasant, speaking in full sentences. HEENT: Extraocular movements intact. Pupils are equally round and reactive to light. Neck is supple with no thyromegaly. No lymphadenopathy. CHEST: Clear to auscultation bilaterally with no adventitious breath sounds appreciated. CARDIOVASCULAR: Regular rate and rhythm with no murmurs, rubs or gallops appreciated. Trace pitting edema bilaterally in lower extremities. Pulses intact. ABDOMEN: Soft. Obese. Nontender to palpation. Positive bowel sounds. No masses. No organomegaly. EXTREMITIES: He moves all his extremities well. NEUROLOGIC: He has no obvious focal deficits. SKIN: No new rashes or lesions. PSYCHIATRIC: He is awake, alert, oriented times three. Normal mood and normal affect. LABORATORY DATA: Today: His white blood cell count came down to 7.6. His hemoglobin 17.0, hematocrit is 52.6 and platelet count is 187. His chemistry shows a sodium of 142, potassium 3.7, chloride 110, carbon dioxide 25, BUN 25, creatinine 0.82, fasting glucose 84. His liver enzymes: Total bilirubin 0. 7, AST 28, ALT 54, alkaline phosphatase 88. His troponins have gone from 0.72 when he was admitted to 0.83, up to 0.95, increased to 1.13 and another one is pending for 11:00 a.m. Total protein 6.5, albumin 3.2. No new imaging. ASSESSMENT: This is a 65-year-old male with a history of coronary artery disease (CAD), hypertension, who presented with chest pain, shortness of breath and palpitations for several hours, found to be in atrial flutter with 2:1, with a rapid ventricular rate of 150, status post direct current (DC) cardioversion, reverted back to sinus rhythm. PLAN: We would like to trend Mr. Matt's troponins today to see that they go down. His EKG that was done this morning does show slight T-wave inversions; however, there is no concern for need for transfer at this time, as his chest pain has been relieved. This most likely could be troponin leak from demand ischemia; however, I would like to see it go down before he gets discharged. Once he is discharged, he will need to be seen by an engine cowling installer (EP) specialist for further workup. When he is discharged, we recommend that you put him on metoprolol low dose, 25 mg twice a day, as well as Eliquis, but we will hold off on switching him to Eliquis at this time, as we are not sure if there may need to be some intervention. Continue withholding parameters on metoprolol. Hold for heart rate less than 60 and blood pressure systolic less than 100, but no other changes need to be made at this time. Lacey Harding MD: I have seen and examined the patient with . Agree with her note. MELINAD
--- NOTE | 2020-06-25 10:57 | RO ---
OPERATIVE NOTE DATE OF OPERATION: 06/24/2020 PREOPERATIVE DIAGNOSIS: Atrial flutter. POSTOPERATIVE DIAGNOSIS: Atrial flutter. PROCEDURE: Cardioversion. SURGEON: Michelle Kent M.D. ATM MANAGER: None ANESTHESIA: Larry Alexis MD and Main Meredith CRNA. BRIEF HISTORY: Mr. Matt is a 65-year-old man who presented to [facility] earlier today complaining about chest discomfort and palpitations. He was found to be in atrial flutter with 2:1 conduction. There was evidence for myocardial injury by a mildly elevated troponin. In spite of trying numerous medications, it proved to be very challenging to achieve reasonable heart rate control and consequently with ongoing chest discomfort and elevated troponin, I felt it was imperative to proceed with cardioversion to restore sinus rhythm. I talked to the patient about the procedure, I explained the potential risks and complications. He did sign appropriate consent. DESCRIPTION OF PROCEDURE: The procedure was performed in the recovery room. The patient presented after six hours of fasting since his lunch. Anesthesiology provided sedation. After appropriate time-out was taken, all the monitors were applied, sedation was accomplished, and he was cardioverted with 200 joules of energy with defibrillator patches in standard position. The shock was administered in synchronized mode and led to mandaen of sinus rhythm. At the time of by dictation, a 12-lead EKG is pending. There were no immediate complications and the patient tolerated the procedure well. Unless unforeseen complications occur, he will return to PCU where he will be monitored overnight. LYNNETTE
[2020-06-25 12:00] VITALS: BP 116/77
--- NOTE | 2020-06-25 12:12 | ECHO ---
DATE OF PROCEDURE: 06/24/2020 Age: 64 Gender: Male Height: 183 cm Weight: 151 kg REFERRING PHYSICIAN: Zeinab Mcclure M.D. INDICATION: Atrial flutter. MEASUREMENTS: IVS 1.4 cm LV 5.6 cm LVPW 1.4 cm LA 4.2 cm Aorta 3.9 cm FINDINGS: Study is of limited technical quality with difficult visualization corresponding to patients body habitus. Underlying atrial flutter with variable ventricular response. Left ventricle is borderline dilated. There is mild left ventricular hypertrophy. I do not appreciate any distinct wall motion abnormalities based on poor quality of images. Estimated LVEF approximately 50% to 55%. Right ventricle was poorly visualized. Left atrium is at least mildly enlarged. Right atrium was poorly seen. Aortic valve, mitral valve, and tricuspid valve appear normal. Pulmonic valve was not well seen. No pericardial effusion is noted. Inferior vena cava was not visualized. Aortic root is borderline dilated at 3.9 cm. Aortic arch and abdominal aorta were not seen. Doppler interrogation reveals competent aortic and mitral valves, same applies for tricuspid valve, and pulmonic valve was not seen. Evaluation of diastolic function is inconclusive due to underlying atrial flutter. CONCLUSIONS: 1. Study is of limited technical quality corresponding to patients body habitus. Underlying atrial flutter with variable ventricular rate. 2. Normal LV size (considering patients size) with mild LVH and overall estimated LVEF approximately 50% to 55%. 3. Right ventricle was poorly visualized. 4. No significant valvular disease. 5. Unable to estimate central venous pressure and pulmonary artery pressure. MTDD
[2020-06-25 15:51] VITALS: BP 128/79
--- NOTE | 2020-06-25 17:36 | IPNPDOC ---
Date Seen The patient was seen on 06/25/20. Progress Note SUBJECTIVE: S/p cardioversion last evening by cardiology, HR much improved and currently sinus rhythm. Started BB BID and will get first dose PO eliquis this evening. Denies chest pain, feels much improved. Trending trops OBJECTIVE: PHYSICAL EXAMINATION: VS: Please see below CONSTITUTIONAL: NAD, resting in bed AAO x 3 EYES: PERRLA, EOM intact HENT, MOUTH: Normocephalic, atraumatic, moist mucous membranes NECK: SUPPLE, no JVD, no lymphadenopathy, no carotid bruit CV: sinus rhythm. S1S2 normal, no murmurs/rubs/gallops RESPIRATORY: Clear to auscultation bilaterally, no rales/rhonchi/wheezes GI: obese abdomen, BS positive in 4 quadrants, soft, nontender, nondistended, no rebound or guarding, no organomegaly : Deferred MUSCULOSKELETAL: Normal ROM. No cyanosis, clubbing, swelling, joint deformity, extremity edema INTEGUMENTARY: Intact, no rashes, no lesions, no erythema NEUROLOGIC: Cranial Nerves II-XII are intact, no focal deficits PSYCHIATRIC: Mood and affect are normal LABORATORY DATA: Please see below IMAGING: Echocardiogram: 1. Study is of limited technical quality corresponding to patients body habitus. Underlying atrial flutter with variable ventricular rate. 2. Normal LV size (considering patients size) with mild LVH and overall estimated LVEF approximately 50% to 55%. 3. Right ventricle was poorly visualized. 4. No significant valvular disease. 5. Unable to estimate central venous pressure and pulmonary artery pressure. CXR: No active disease CTA chest from 06/18/20: No CT evidence of pulmonary embolus. Intrarenal nephrolithiasis left kidney upper pole. Prominent heart unchanged. Minimal platelike atelectasis in the lung bases. Coronary CTA 01/2020: minimal plaque in coronary arteries (result read to me by cardiology) ASSESSMENT: 65 y/o M with PMH of intermittent chest palpitations and atypical chest pain, HTN, HLD, morbid obesity admitted for further treatment of new onset atrial flutter with rapid ventricular rate. PLAN: New onset atrial flutter with RVR with substernal chest pressure/pain, elevated troponin, demand ischemia s/p cardioversion 06/24/20 -HR sinus currently, HR improved to 54-59 -Trop trending down -Echocardiogram above -Starting BB BID with holding parameters, to get first dose eliquis this evening -If HR remains stable, trops continue trend down can discuss d/c in AM. Will need f/u with applied behavior specialist Dr. Kelly, Dr. Kent discussed case with him already. Peripheral neuropathy -Not currently on home medications -Allergic to gabapentin Chronic back pain -Stable -Tylenol, holding NSAID Morbid obesity -BMI 45 -Complicating care -F/u with PCP DVT px -Eliquis DISPOSITION: Admitted as acute inpatient. When medically improved, plan is discharge home. VS, I&O, 24H, Fishbone Vital Signs/I&O Vital Signs Date Time Temp Pulse Resp B/P (MAP) Pulse Ox O2 Delivery O2 Flow Rate FiO2 06/25/20 15:51 98.3 54 19 128/79 (95) 97 Room Air 06/24/20 18:56 3 I&O- Last 24 Hours up to 6 AM 06/25/20 06:00 Intake Total 1900 ml Output Total 600 ml Balance 1300 ml Laboratory Data 24H LABS Laboratory Tests 2 06/25/20 05:47: Nucleated Red Blood Cells % (auto) 0.0, Anion Gap 7L, Glomerular Filtration Rate > 60.0, Calcium Level 8.9, Total Bilirubin 0.7, Aspartate Amino Transf (AST/SGOT) 28, Alanine Aminotransferase (ALT/SGPT) 54, Alkaline Phosphatase 88, Troponin I 1.13H, Total Protein 6.5, Albumin 3.2, Albumin/Globulin Ratio 1.0 06/25/20 10:45: Troponin I 0.78#H CBC/BMP Laboratory Tests 06/25/20 05:47 Current Medications Current Medications Medications (Trade) Dose Ordered Sig/Sara Route PRN Reason Start Time Stop Time Status Last Admin Dose Admin Acetaminophen (Tylenol Tab) 650 mg Q4H PRN PO PAIN OR FEVER 06/24/20 11:00 Amiodarone HCl 150 mg/IV Miscellaneous Supplies 100 ml @ 600 mls/hr STAT STAT IV 06/24/20 14:13 06/24/20 14:22 DC 06/24/20 14:22 Amiodarone HCl 150 mg/IV Miscellaneous Supplies 100 ml @ 600 mls/hr STAT STAT IV 06/24/20 16:23 06/24/20 16:32 DC 06/24/20 16:30 Apixaban (Eliquis) 5 mg BID PO 06/25/20 21:00 Digoxin (Lanoxin) 0.5 mg STAT STAT IV 06/24/20 12:17 06/24/20 12:19 DC 06/24/20 12:31 Enoxaparin Sodium (Lovenox) 150 mg BID SC 06/24/20 09:00 06/25/20 12:00 DC 06/25/20 09:05 Home Med (Med Rec Complete!) ASDIRECTED XX 06/24/20 10:30 06/24/20 10:30 DC Metoprolol Tartrate (Lopressor) 5 mg Q5M IV 06/24/20 09:15 06/24/20 11:23 DC 06/24/20 09:23 Metoprolol Tartrate (Lopressor) 5 mg STAT STAT IV 06/24/20 08:41 06/24/20 08:42 DC 06/24/20 08:58 Metoprolol Tartrate (Lopressor) 25 mg BID PO 06/25/20 09:00 Metoprolol Tartrate (Lopressor) 25 mg Q6H PO 06/24/20 12:00 06/25/20 11:39 DC 06/24/20 23:23 Allergies Coded Allergies: gabapentin (Verified Adverse Reaction, Intermediate, suicial thoughts, 10/23/19) pregabalin (Verified Adverse Reaction, Intermediate, suicidal thoughts, 10/23/19) tizanidine (Verified Adverse Reaction, Intermediate, suicidal thoughts, 10/23/19) Zeinab Mcclure MD Jun 25, 2020 17:36
[2020-06-25 20:00] VITALS: BP 127/73
[2020-06-25] MEDS: APIXABAN 5 MG TAB (ELIQUIS) PO SCH (20:33)
[2020-06-26] VITALS: BP 111/59
[2020-06-26 04:00] VITALS: BP 123/76
[2020-06-26 05:53] LABS: HEMATOCRIT 51.1 % (42.0-52.0); MEAN CORPUSCULAR HGB CONC 33.3 g/dl (32.0-36.5); MEAN CORPUSCULAR VOLUME 90.3 fl (80.0-96.0); PLATELET COUNT, AUTOMATED 180 10^3/uL (150-450); RED BLOOD COUNT 5.66 10^6/uL (4.30-6.10); WHITE BLOOD COUNT 7.1 10^3/uL (4.0-10.0)
[2020-06-26 06:12] LABS: ALBUMIN 3.4 GM/DL (3.2-5.2); ALT/SGPT 79 U/L (12-78); BLOOD UREA NITROGEN 19 MG/DL (7-18); CALCIUM LEVEL 8.5 MG/DL (8.8-10.2); CARBON DIOXIDE LEVEL 28 MEQ/L (21-32); CHLORIDE LEVEL 110 MEQ/L (98-107); CREATININE FOR GFR 0.83 MG/DL (0.70-1.30); GLOMERULAR FILTRATION RATE > 60.0 (>49); GLUCOSE, FASTING 92 MG/DL (70-100); POTASSIUM SERUM 3.9 MEQ/L (3.5-5.1); SODIUM LEVEL 143 MEQ/L (136-145); TOTAL PROTEIN 6.5 GM/DL (6.4-8.2)
[2020-06-26 07:57] VITALS: BP 122/87
[2020-06-26 08:23] VITALS: BP 122/87
[2020-06-26] MEDS: METOPROLOL TART 25 MG TABLET PO SCH (08:23)
[2020-06-26] MEDS ORDERED: ELIQ5TAB PO (08:24)
[2020-06-26] MEDS ORDERED: METO1TAB87 PO (08:24)
[2020-06-26] MEDS: APIXABAN 5 MG TAB (ELIQUIS) PO SCH (08:24)
--- NOTE | 2020-06-26 09:31 | IPN ---
PROGRESS NOTE DATE: 06/24/2020 SUBJECTIVE: Mr. Matt was seen and examined at the bedside this morning. He reports he had no issues sleeping. He denies any further chest pain, no palpitations. His telemetry was reviewed and he has been in sinus rhythm since his cardioversion; otherwise, he has no other complaints today and would like to go home. OBJECTIVE: His vitals are temperature of 96.9, pulse of 80, respiratory rate of 18, blood pressure 122/87, pulse oximetry is 97% on room air. Generally, he is sitting up in bed. He is calm, cooperative and in no acute distress. Speaking in full sentences. HEENT exam: Extraocular movements are intact. Pupils are equally round and reactive to light. Normocephalic and atraumatic. Neck is supple with no thyromegaly; no lymphadenopathy. Chest: He is clear to auscultation bilaterally with no adventitious breath sounds appreciated. Cardiovascular: He is regular rate and rhythm with no murmurs, rubs or gallops. Normal S1, normal S2. Abdomen is soft and nontender to palpation, obese; positive bowel sounds, no organomegaly, no lymphadenopathy. Extremities: Trace edema in lower extremities bilaterally. Moves all his extremities well. Skin: No new rashes or lesions. Neuro: No obvious focal deficits. Psych: He is awake, alert and oriented x3 with a normal mood and normal affect. LABORATORY: Today, his white blood cell count is 7.1, hemoglobin 17, hematocrit 51, platelet count is 180. Chemistries: Sodium is 143, potassium is 3.9, chloride is 110, carbon dioxide is 28. BUN is 19 and creatinine is 0.83. Liver enzymes: Total bilirubin is 1.0, AST is 38, ALT is 79 and alkaline phosphatase is 91. His troponin peaked at 1.13 and trended down to 0.78 and then 0.54. ASSESSMENT: This is a [age]-year-old male with a history of coronary artery disease (CAD), hypertension and obstructive sleep apnea (JUAN) who presented with chest pain, shortness of breath and palpitations for several hours; found to be in atrial flutter with rapid ventricular rate, status post direct DC cardioversion now reverted back to sinus rhythm. PLAN: Mr. Matt is suitable for discharge today. As instructed, he should be started on Eliquis and for rate control he can be taking metoprolol 25 mg twice a day. We will look forward to seeing him in the office in the outpatient setting next week to follow up with Dr. Kent and will plan thereafter to have him go for an ablation procedure in [place]. Otherwise, he is stable and ready for discharge. Addendum MD Mehdi: Patient was seen and examined with . I agree with her note. MTDD
--- NOTE | 2020-06-26 16:49 | DS.PDOC ---
Discharge Summary General Date of Admission Jun 24, 2020 at 10:50 Date of Discharge 06/26/20 Attending Physician: Zeinab Mcclure MD Discharge Summary HISTORY OF PRESENT ILLNESS: Patient is a 65-year-old male with PMH of atypical chest pain, questionable peripheral neuropathy, chronic back pain, morbid obesity who presented to [facility] emergency room with the chief complaint of substernal/left-sided chest pressure and palpitations. The patient states he has symptoms like this to have been going on and off for over a year. He sees a supervisor carbon electrodes as outpatient for atypical chest pain which has essentially had a negative workup. The patient states the chest pain has been constant for 18 hours, is dull/pressure-like, localized, nonradiating. He appeared uncomfortable in bed but denies cough, nausea, vomiting, fevers, chills, recent illnesses. He does admit to occasional shortness of breath with increased palpitations of the chest. He came to the emergency room today because his symptoms did not improve at home. In the emergency room the patient had heart rate of the 150s, blood pressure 107/35, 96% on room air, respiratory rate was 20. He was given a total of 2 doses of IV Lopressor and 25 mg of by mouth Lopressor which did not improve his heart rate much. His blood pressure dropped and he was given 1 L bolus. Cardiology was consulted and suggested full anticoagulation and another dose of 25 mg Lopressor as well as starting every 6 hours metoprolol tartrate 25 mg. Troponin was elevated at 0.70 and thought to be secondary to demand ischemia. ECG showed atrial flutter with an uncontrolled rate. The patient was admitted for further treatment of new onset atrial flutter with rapid ventricular rate, chest pressure. HOSPITAL COURSE: Patient was given two doses of amiodarone 150 mg IV without resolution of atrial flutter with RVR, he had incr troponins. The evening of 06/24/20 he underwent cardioversion by cardiology, HR much improved and currently sinus rhythm. He was transitioned later to metoprolol BID and started on PO eliquis this evening. Post-cardioversion, troponins continued to trend down. On 06/26/20 patient had been rate controlled for >36 hours, was in NSR. Plan was for discharge, f/u with Dr. Kent (cardiology) and will get referral to EP supervisor carbon electrodes by o/p cardiology office. At time of discharge, patient denies chest pain, feels much improved. PAST MEDICAL HISTORY: Atypical chest pain Occasional palpitations Peripheral neuropathy Chronic back pain Morbid obesity PAST SURGICAL HISTORY: None FAMILY HISTORY: Father: Healthy. at 95 years old Mother: Diabetes mellitus type 2. at 78 years old SOCIAL HISTORY: Patient is a prior smoker 1 pack per day for 50 years. Quit in December 2019. He denies alcohol use and has a medical marijuana card for chronic back pain. He has a primary care physician whom he follows with regularly and his supervisor carbon electrodes is Dr. Kent. He is a full code. ALLERGIES: Please see below. DISCHARGE MEDICATIONS: Please see below. PHYSICAL EXAMINATION: VS: Please see below CONSTITUTIONAL: NAD, resting in bed AAO x 3 EYES: PERRLA, EOM intact HENT, MOUTH: Normocephalic, atraumatic, moist mucous membranes NECK: SUPPLE, no JVD, no lymphadenopathy, no carotid bruit CV: sinus rhythm. S1S2 normal, no murmurs/rubs/gallops RESPIRATORY: Clear to auscultation bilaterally, no rales/rhonchi/wheezes GI: obese abdomen, BS positive in 4 quadrants, soft, nontender, nondistended, no rebound or guarding, no organomegaly : Deferred MUSCULOSKELETAL: Normal ROM. No cyanosis, clubbing, swelling, joint deformity, extremity edema INTEGUMENTARY: Intact, no rashes, no lesions, no erythema NEUROLOGIC: Cranial Nerves II-XII are intact, no focal deficits PSYCHIATRIC: Mood and affect are normal LABORATORY DATA: Please see below IMAGING: Echocardiogram: 1. Study is of limited technical quality corresponding to patients body habitus. Underlying atrial flutter with variable ventricular rate. 2. Normal LV size (considering patients size) with mild LVH and overall estimated LVEF approximately 50% to 55%. 3. Right ventricle was poorly visualized. 4. No significant valvular disease. 5. Unable to estimate central venous pressure and pulmonary artery pressure. CXR: No active disease CTA chest from 06/18/20: No CT evidence of pulmonary embolus. Intrarenal nephrolithiasis left kidney upper pole. Prominent heart unchanged. Minimal platelike atelectasis in the lung bases. Coronary CTA 01/2020: minimal plaque in coronary arteries (result read to me by cardiology) ASSESSMENT: 65 y/o M with PMH of intermittent chest palpitations and atypical chest pain, HTN, HLD, morbid obesity admitted for further treatment of new onset atrial flutter with rapid ventricular rate. PLAN: New onset atrial flutter with (now resolved) RVR with substernal chest pressure/pain, elevated troponin, demand ischemia s/p cardioversion 06/24/20 -HR sinus currently, HR 80 -Trop trending down -Echocardiogram above -C/w BB BID , eliquis -Will need f/u with credit administration specialist Dr. Kelly, Dr. Kent after discharge Peripheral neuropathy -Not currently on home medications -Allergic to gabapentin Chronic back pain -Stable -C/w home med Morbid obesity -BMI 45 -Complicating care -F/u with PCP DVT px -Eliquis DISPOSITION: Discharging home with following up with cardiology and will be getting referral for EP supervisor carbon electrodes TIME SPENT ON DISCHARGE: 35 minutes. Vital Signs/I&Os Vital Signs Date Time Temp Pulse Resp B/P (MAP) Pulse Ox O2 Delivery O2 Flow Rate FiO2 06/26/20 08:23 80 122/87 06/26/20 07:57 96.9 18 97 Room Air 06/24/20 18:56 3 I&O- Last 24 Hours up to 6 AM 06/26/20 05:59 Intake Total 780 ml Output Total 450 ml Balance 330 ml Laboratory Data Labs 24H Laboratory Tests 2 06/25/20 21:02: Troponin I 0.54#H 06/26/20 05:30: Nucleated Red Blood Cells % (auto) 0.0, Anion Gap 5L, Glomerular Filtration Rate > 60.0, Calcium Level 8.5L, Total Bilirubin 1.0, Aspartate Amino Transf (AST/SGO T) 30, Alanine Aminotransferase (ALT/SGPT) 79H, Alkaline Phosphatase 91, Total Protein 6.5, Albumin 3.4, Albumin/Globulin Ratio 1.1 06/26/20 08:37: Troponin I 0.30#H CBC/BMP Laboratory Tests 06/26/20 05:30 Discharge Medications Scheduled Apixaban (Eliquis) 5 Mg Tablet, 5 MG PO BID Meloxicam (Meloxicam) 15 Mg Tablet, 15 MG PO QHS, (Reported) Metoprolol Tartrate (Metoprolol Tartrate) 25 Mg Tablet, 25 MG PO BID Allergies Coded Allergies: gabapentin (Verified Adverse Reaction, Intermediate, suicial thoughts, 10/23/19) pregabalin (Verified Adverse Reaction, Intermediate, suicidal thoughts, 10/23/19) tizanidine (Verified Adverse Reaction, Intermediate, suicidal thoughts, 10/23/19) Zeinab Mcclure MD Jun 26, 2020 16:48
--- NOTE | 2020-06-27 00:22 | ECGEPIP ---
[facility] Test Date: 2020-06-24 Pat Name: KASANDRA AG Department: Room: [place] [address] Gender: Male Machine Builder: RAIMUNDO : 1955 Requested By: Zeinab Callaway Order Number: [id number] Reading MD: Myles Hensley Measurements Intervals [place] Rate: 152 P: NV: 128 QRS: -48 QRSD: 150 T: 221 QT: 288 QTc: 457 Interpretive Statements Critical Test Result: High HR Sinus tachycardia vs atrial flutter with 2:1 AV Block Left axis deviation Right bundle branch block Last tracing on 06/24/20 at 8:28, no significant changes Electronically Signed on 06-27-2020 0:21:50 EST by Myles Hensley
--- NOTE | 2020-06-27 00:25 | ECGEPIP ---
[facility] Test Date: 2020-06-24 Pat Name: KASANDRA AG Department: Room: [place] [address] Gender: Male Health Center Manager: pacu : 1955 Requested By: Michelle Kent Order Number: [id number] Reading MD: Myles Hensley Measurements Intervals [place] Rate: 68 P: 37 WV: 150 QRS: -45 QRSD: 102 T: 72 QT: 380 QTc: 404 Interpretive Statements Normal sinus rhythm Incomplete right bundle branch block Left anterior fascicular block Cannot rule out Inferior infarct (masked by fascicular block?) , age undetermined ST & T wave abnormality, consider lateral ischemia Last tracing on 06/24/20 at 13:33, a narrow complex supraventricular tachycardia w was present Electronically Signed on 06-27-2020 0:25:09 EST by Myles Hensley
--- NOTE | 2020-06-27 00:32 | ECGEPIP ---
[facility] Test Date: 2020-06-25 Pat Name: KASANDRA AG Department: Room: [place] [address] Gender: Male Certified Medical Transcriptionist: VIKTOR : 1955 Requested By: Michelle Kent Order Number: [id number] Reading MD: Myles Hensley Measurements Intervals [place] Rate: 58 P: 53 RI: 164 QRS: -42 QRSD: 114 T: 77 QT: 434 QTc: 426 Interpretive Statements Sinus bradycardia Marked left axis deviation Incomplete right bundle branch block Cannot rule out Anterior infarct due to poor R wave progression ST & T wave abnormality, consider lateral ischemia Last tracing on 06/24/20, 18:50, no significant changes Electronically Signed on 06-27-2020 0:32:00 EST by Myles Hensley
== END 2020-06-26 11:42 | disposition home or self-care (01) | DRG 309 ==
LOC: M ED 08:12 → EDBD 08:12 → M ED INP 10:50 → M PCU 13:46
PROVIDERS: ADMIT Internal Medicine; ATTEND Internal Medicine
PROC: 5A2204Z Restoration of Cardiac Rhythm, Single (ICD-10-PCS; principal; 2020-06-24)
DX: I48.92 Unspecified atrial flutter (principal); I24.8 Other forms of acute ischemic heart disease; Z68.42 Body mass index [BMI] 45.0-49.9, adult; I50.32 Chronic diastolic (congestive) heart failure; E66.01 Morbid (severe) obesity due to excess calories; I11.0 Hypertensive heart disease with heart failure; Z88.8 Allergy status to other drugs, medicaments and biological substances; G62.9 Polyneuropathy, unspecified; G47.33 Obstructive sleep apnea (adult) (pediatric); E78.5 Hyperlipidemia, unspecified; I25.10 Atherosclerotic heart disease of native coronary artery without angina pectoris

== ENCOUNTER → 2020-07-04 | Outpatient (CLI) | payer MEDICARE ==
[~2020-07-04] MED LIST changes: +ELIQ5TAB PO; +METO1TAB87 PO
[2020-07-04 11:33] LABS: BASO % 0.6 % (0.0-1.0); EOS # 0.1 10^3/uL (0.0-0.5); HEMATOCRIT 51.7 % (42.0-52.0); HEMOGLOBIN 16.9 g/dl (13.5-17.5); LYMPH # 1.9 10^3/uL (1.5-5.0); LYMPH % 26.3 % (24.0-44.0); MEAN CORPUSCULAR HEMOGLOBIN 29.4 pg (27.0-33.0); MEAN CORPUSCULAR HGB CONC 32.7 g/dl (32.0-36.5); MEAN CORPUSCULAR VOLUME 90.1 fl (80.0-96.0); MONO # 0.6 10^3/uL (0.0-0.8); MONO % 8.4 % (2.0-8.0); NEUTROPHILS # 4.6 10^3/uL (1.5-8.5); NEUTROPHILS % 63.4 % (36.0-66.0); PLATELET COUNT, AUTOMATED 184 10^3/uL (150-450); RED BLOOD COUNT 5.74 10^6/uL (4.30-6.10); WHITE BLOOD COUNT 7.2 10^3/uL (4.0-10.0)
[2020-07-04 12:05] LABS: BLOOD UREA NITROGEN 17 MG/DL (7-18); CALCIUM LEVEL 9.2 MG/DL (8.8-10.2); CARBON DIOXIDE LEVEL 26 MEQ/L (21-32); CHLORIDE LEVEL 107 MEQ/L (98-107); CREATININE FOR GFR 0.86 MG/DL (0.70-1.30); GLOMERULAR FILTRATION RATE > 60.0 (>49); GLUCOSE, FASTING 91 MG/DL (70-100); POTASSIUM SERUM 4.7 MEQ/L (3.5-5.1); SODIUM LEVEL 140 MEQ/L (136-145); TROPONIN I < 0.02 NG/ML (< 0.10)
== END ==
LOC: M LAB 09:52
PROVIDERS: ATTEND Physician Assistant
DX: R07.89 Other chest pain (principal); I48.3 Typical atrial flutter

== ENCOUNTER → 2020-07-06 | Outpatient (CLI) | payer MEDICARE | LOC: M LABSMTC 10:29 | PROVIDERS: ATTEND Internal Medicine Cardiovascular Disease | DX: Z11.52 Encounter for screening for COVID-19 (principal) ==

== ENCOUNTER 2020-08-27 10:46 | Emergency (ER) | payer MEDICARE ==
[~2020-08-27] VITALS: Ht 182.9 cm; Wt 140.9 kg
[2020-08-27] MEDS ORDERED: ATOR40TA75 PO (11:06)
[2020-08-27] MEDS ORDERED: ACET-683 PO (11:06)
[2020-08-27 11:09] LABS: BASO % 0.4 % (0.0-1.0); EOS # 0.1 10^3/uL (0.0-0.5); EOS % 0.9 % (0.0-3.0); HEMATOCRIT 46.7 % (42.0-52.0); HEMOGLOBIN 15.7 g/dl (13.5-17.5); LYMPH # 2.1 10^3/uL (1.5-5.0); LYMPH % 29.5 % (24.0-44.0); MEAN CORPUSCULAR HEMOGLOBIN 29.6 pg (27.0-33.0); MEAN CORPUSCULAR HGB CONC 33.6 g/dl (32.0-36.5); MEAN CORPUSCULAR VOLUME 87.9 fl (80.0-96.0); MONO # 0.5 10^3/uL (0.0-0.8); MONO % 7.6 % (2.0-8.0); NEUTROPHILS # 4.3 10^3/uL (1.5-8.5); NEUTROPHILS % 61.3 % (36.0-66.0); PLATELET COUNT, AUTOMATED 190 10^3/uL (150-450); RED BLOOD COUNT 5.31 10^6/uL (4.30-6.10)
[2020-08-27 11:33] LABS: INR 1.05
--- NOTE | 2020-08-27 11:33 | REP ---
INDICATION: CHEST PAIN. COMPARISON: 06/24/2020. TECHNIQUE: Single portable AP view of the chest was performed. FINDINGS: Mild cardiomegaly. There is no evidence of acute infiltrate or pulmonary edema. The mediastinal silhouette is unchanged. There are degenerative changes of the spine. IMPRESSION: No acute pulmonary disease.Mild cardiomegaly. <Electronically signed by Chandler Pennington > 08/27/20 [id number]
[2020-08-27 11:37] LABS: ALBUMIN 3.9 GM/DL (3.2-5.2); ALT/SGPT 33 U/L (12-78); BILIRUBIN,DIRECT 0.2 MG/DL (0.0-0.2); BILIRUBIN,TOTAL 0.7 MG/DL (0.2-1.0); BLOOD UREA NITROGEN 14 MG/DL (7-18); CALCIUM LEVEL 9.7 MG/DL (8.8-10.2); CARBON DIOXIDE LEVEL 24 MEQ/L (21-32); CHLORIDE LEVEL 109 MEQ/L (98-107); CK-MB VALUE MASS < 1.0 NG/ML (<3.6); CPK CREATINE PHOSPHOKINASE 87 U/L (39-308); CREATININE FOR GFR 0.81 MG/DL (0.70-1.30); GLOMERULAR FILTRATION RATE > 60.0 (>49); GLUCOSE, FASTING 116 MG/DL (70-100); LIPASE 56 U/L (73-393); MB/CK RELATIVE INDEX 1.15 (< OR =4); SODIUM LEVEL 139 MEQ/L (136-145); TOTAL PROTEIN 7.3 GM/DL (6.4-8.2); TROPONIN I < 0.02 NG/ML (< 0.10)
[2020-08-27] MEDS ORDERED: ISOVUE-370 76% 100ML VIAL As Ordered ONE (14:23)
[2020-08-27 15:24] LABS: CK-MB VALUE MASS < 1.0 NG/ML (<3.6); CPK CREATINE PHOSPHOKINASE 78 U/L (39-308); MB/CK RELATIVE INDEX 1.28 (< OR =4); TROPONIN I < 0.02 NG/ML (< 0.10)
[2020-08-27] MEDS ORDERED: KETOROLAC 30 MG/ML 1ML VIAL IV ONE (15:25)
[2020-08-27] MEDS ORDERED: KETOROLAC 30 MG/ML 1ML VIAL As Ordered ONE (15:27)
--- NOTE | 2020-08-27 15:49 | REP ---
INDICATION: chest pain COMPARISON: 06/18/2020 CT angiography TECHNIQUE: CT angiography of the pulmonary arteries was obtained after the intravenous administration of 70 cc of Isovue 370. FINDINGS: Once again, there is excellent visualization of the pulmonary arterial vasculature. There are no focal filling defects present that would be considered consistent with acute pulmonary emboli. There are no pleural or pericardial effusions. There is no mediastinal or hilar adenopathy. The imaged upper abdomen is unchanged. Once again, there is a nonobstructing left nephrolith and a small left renal cyst status quo. Bone window technique throughout the exam shows no significant change in appearance of the osseous structures. Evaluation of the lung reilly shows chronic bibasilar fibrotic and/or subsegmental atelectatic changes. No new abnormal nodules, masses, or opacities have developed. IMPRESSION: There is no evidence of acute disease. Findings as described above. <Electronically signed by Alvino Parsons > 08/27/20 [id number]
[2020-08-27] MEDS ORDERED: PERCOCET 5MG/325MG TAB PO ONE (17:35)
[2020-08-27] MEDS ORDERED: predniSONE 20 MG TAB PO ONE (17:35)
[2020-08-27] MEDS ORDERED: PERC5TAB12 PO ×2 (18:07→18:10)
[2020-08-27] MEDS ORDERED: PRED20TA PO (18:07)
[2020-08-27 18:15] VITALS: BP 131/82
--- NOTE | 2020-08-27 23:03 | ECGEPIP ---
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
--- NOTE | 2020-08-27 23:08 | ECGEPIP ---
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
== END 2020-08-27 18:34 | disposition home or self-care (01) ==
LOC: M ED 10:46
DX: R07.89 Other chest pain (principal); E11.610 Type 2 diabetes mellitus with diabetic neuropathic arthropathy; I10 Essential (primary) hypertension; G47.33 Obstructive sleep apnea (adult) (pediatric); Z88.8 Allergy status to other drugs, medicaments and biological substances; F12.20 Cannabis dependence, uncomplicated; Z87.891 Personal history of nicotine dependence; Z79.899 Other long term (current) drug therapy; Z79.01 Long term (current) use of anticoagulants
CPT/HCPCS: 36415; 71045; 71275; 80047; 80048; 80076; 82550; 82553; 83690; 84484; 85025; 85610; 87798; 93005; 96374; 99285; J1885; Q9967

== ENCOUNTER → 2020-09-18 | Outpatient (REF) | payer MEDICARE ==
[~2020-09-18] MED LIST changes: +ACET-683 PO; +ATOR40TA75 PO; +PERC5TAB12 PO
[2020-09-18 13:23] LABS: ALBUMIN 3.9 GM/DL (3.2-5.2); ALT/SGPT 35 U/L (12-78); BILIRUBIN,TOTAL 0.5 MG/DL (0.2-1.0); BLOOD UREA NITROGEN 17 MG/DL (7-18); CALCIUM LEVEL 9.5 MG/DL (8.8-10.2); CARBON DIOXIDE LEVEL 31 MEQ/L (21-32); CHLORIDE LEVEL 106 MEQ/L (98-107); CHOLESTEROL LEVEL 166 MG/DL (<200); CHOLESTEROL RISK RATIO 3.458 (<5); CREATININE FOR GFR 0.87 MG/DL (0.70-1.30); GLOMERULAR FILTRATION RATE > 60.0 (>49); GLUCOSE, FASTING 89 MG/DL (70-100); HDL CHOLESTEROL 48 MG/DL (>40); LDL CHOLESTEROL 93 MG/DL (<100); NON-HDL-C 118 MG/DL; POTASSIUM SERUM 4.3 MEQ/L (3.5-5.1); SODIUM LEVEL 140 MEQ/L (136-145); TOTAL PROTEIN 6.9 GM/DL (6.4-8.2); TRIGLYCERIDES LEVEL 126 MG/DL (<150)
== END ==
LOC: M SFHCADAM 08:47
PROVIDERS: ATTEND Physician Assistant Medical
DX: E78.2 Mixed hyperlipidemia (principal)

== ENCOUNTER → 2020-09-28 | Outpatient (CLI) | payer MEDICARE | LOC: M LABSMTC 09:57 | PROVIDERS: ATTEND Anesthesiology | DX: Z01.812 Encounter for preprocedural laboratory examination (principal) ==

== ENCOUNTER → 2020-09-30 | Outpatient (CLI) | payer MEDICARE ==
--- NOTE | 2020-09-30 09:37 | REP ---
INDICATION: RIGHT MEDIAL KNEE PAIN COMPARISON: None. TECHNIQUE: AP, lateral, bilateral oblique and sunrise views. FINDINGS: Moderate/early advanced tricompartmental osteoarthritic degenerative changes are appreciated. No obvious acute fracture or dislocation. No definite effusion. IMPRESSION: Tricompartmental osteoarthritic degenerative changes. <Electronically signed by Aris Harvey > 09/30/20 [id number]
== END ==
LOC: M ADAMS 09:16
PROVIDERS: ATTEND Physician Assistant Medical
DX: M17.11 Unilateral primary osteoarthritis, right knee (principal); M25.561 Pain in right knee
CPT/HCPCS: 73564; G0463

== ENCOUNTER 2020-10-03 08:07 | Day surgery (SDC) | payer MEDICARE ==
[~2020-10-03] VITALS: Ht 185.4 cm; Wt 141.5 kg
[~2020-10-03 08:07] MED LIST changes: +NS 1,000 ML IV ONE
[2020-10-03] MEDS ORDERED: LIDOCAINE 2% 100MG/5ML SDV (FOR ANES.) As Ordered ONE (08:14)
[2020-10-03] MEDS ORDERED: propofoL 200 MG/20 ML VIAL As Ordered ONE ×2 (08:14→10:21)
--- NOTE | 2020-10-03 10:44 | ROOR ---
Patient Name: Juan Diego Matt Procedure Date: 10/03/2020 10:05 AM Date of : 1955 Age: 65 Room: [facility] Gender: Male Note Status: Finalized Procedure: Colonoscopy Indications: Hematochezia Providers: Cristi Mercado MD Referring MD: FABIAN Betancourt Requesting Provider: Medicines: Monitored Anesthesia Care Complications: No immediate complications. Procedure: Pre-Anesthesia Assessment: - The heart rate, respiratory rate, oxygen saturations, blood pressure, adequacy of pulmonary ventilation, and response to care were monitored throughout the procedure. The Colonoscope was introduced through the anus and advanced to the terminal ileum, with identification of the appendiceal orifice and IC valve. The colonoscopy was performed without difficulty. The patient tolerated the procedure well. Findings: The perianal and digital rectal examinations were normal. Two sessile polyps were found in the sigmoid colon and ascending colon. The polyps were 5 to 6 mm in size. These polyps were removed with a cold snare. Resection and retrieval were complete. To prevent bleeding after the polypectomy, five hemostatic clips were successfully placed. There was no bleeding at the end of the procedure. Retroflexion in the right colon was performed. Mild sigmoid diverticulosis and moderate internal hemorrhoids. The exam was otherwise without abnormality on direct and retroflexion views. Impression: - Two 5 to 6 mm polyps in the sigmoid colon and in the ascending colon, removed with a cold snare. Resected and retrieved. Clips were placed. - Mild sigmoid diverticulosis and moderate internal hemorrhoids. - The examination was otherwise normal on direct and retroflexion views. Recommendation: - Repeat colonoscopy in 5 years for surveillance. Procedure Code(s): --- Professional --- 57259, Colonoscopy, flexible; with removal of tumor(s), polyp(s), or other lesion(s) by snare technique Diagnosis Code(s): --- Professional --- K92.1, Melena (includes Hematochezia) K63.5, Polyp of colon CPT copyright 2019 [employer]. All rights reserved. The codes documented in this report are preliminary and upon senior technical recruiter review may be revised to meet current compliance requirements. Cristi Mercado MD Cristi Mercado MD 10/03/2020 10:44:35 AM Electronically signed by Cristi Mercado MD Number of Addenda: 0 Note Initiated On: 10/03/2020 10:05 AM Estimated Blood Loss: Estimated blood loss: none. Estimated blood loss: none. Estimated blood loss: none.
[2020-10-03 10:55] VITALS: BP 132/83
== END 2020-10-03 11:06 | disposition home or self-care (01) ==
LOC: M OPP 08:07
PROVIDERS: ATTEND Internal Medicine Gastroenterology
DX: D12.2 Benign neoplasm of ascending colon (principal); D12.5 Benign neoplasm of sigmoid colon; K64.8 Other hemorrhoids; K57.30 Diverticulosis of large intestine without perforation or abscess without bleeding; K92.1 Melena; G47.30 Sleep apnea, unspecified; Z79.899 Other long term (current) drug therapy; Z88.8 Allergy status to other drugs, medicaments and biological substances

== ENCOUNTER → 2020-10-31 | Outpatient (REF) | payer MEDICARE ==
[~2020-10-31] MED LIST changes: -NS 1,000 ML IV ONE
== END ==
LOC: M LAB REF 12:57
PROVIDERS: ATTEND Nurse Practitioner Adult Health
DX: R05 Cough (principal)

== ENCOUNTER → 2020-11-07 | Outpatient (REF) | payer MEDICARE ==
[2020-11-07 19:13] LABS: APPEARANCE, URINE CLEAR (CLEAR); BACTERIA, URINE AUTO NEGATIVE (NEGATIVE); BILIRUBIN, URINE AUTO NEGATIVE (NEGATIVE); BLOOD, URINE BLOOD NEGATIVE (NEGATIVE); COLOR, URINE YELLOW (YELLOW); GLUCOSE, URINE (UA) AUTO NEGATIVE (NEGATIVE); KETONE, URINE AUTO NEGATIVE (NEGATIVE); LEUKOCYTE ESTERASE, URINE AUTO NEGATIVE (NEGATIVE); MUCUS, URINE SMALL (NEGATIVE); NITRITE, URINE AUTO NEGATIVE (NEGATIVE); PROTEIN, URINE AUTO NEGATIVE (NEGATIVE); RBC, URINE AUTO 3 /HPF (0-3); SPECIFIC GRAVITY URINE AUTO 1.018 (1.002-1.035); SQUAMOUS EPITHELIAL CELL UR AU 0 /HPF (0-6); UROBILINOGEN, URINE AUTO 0.2 mg/dL (0.0-2.0); WBC, URINE AUTO 2 /HPF (0-3)
== END ==
LOC: M SFHCADAM 16:14
PROVIDERS: ATTEND Physician Assistant Medical
DX: R35.0 Frequency of micturition (principal); N20.0 Calculus of kidney; M54.6 Pain in thoracic spine; G89.29 Other chronic pain; R07.81 Pleurodynia
CPT/HCPCS: 81001; 81002; 87086; G0463

== ENCOUNTER → 2020-11-28 | Outpatient (CLI) | payer MEDICARE ==
--- NOTE | 2020-11-28 12:35 | REP ---
INDICATION: KIDNEY STONE. COMPARISON: None. FINDINGS: KUB shows the intestinal gas pattern to be nonspecific. The organ silhouettes insofar as delineated are unremarkable. There is no evidence of free intraperitoneal air. Colonic content obscures the nephric silhouettes. No abnormal calcifications are identified. Sign IMPRESSION: Nonspecific. <Electronically signed by Alvino Parsons > 11/28/20 [id number]
== END ==
LOC: M PLAIMG 11:21
PROVIDERS: ATTEND Nurse Practitioner Women's Health
DX: N20.0 Calculus of kidney (principal); Z12.5 Encounter for screening for malignant neoplasm of prostate
CPT/HCPCS: 36415; 74018; G0103; G0463

== ENCOUNTER 2021-01-13 10:21 | Emergency (ER) | payer MEDICARE ==
[~2021-01-13] VITALS: Ht 182.9 cm; Wt 135.9 kg
[2021-01-13 11:42] LABS: HEMATOCRIT 48.7 % (42.0-52.0); HEMOGLOBIN 16.6 g/dl (13.5-17.5); MEAN CORPUSCULAR HEMOGLOBIN 30.5 pg (27.0-33.0); MEAN CORPUSCULAR HGB CONC 34.1 g/dl (32.0-36.5); MEAN CORPUSCULAR VOLUME 89.4 fl (80.0-96.0); PLATELET COUNT, AUTOMATED 189 10^3/uL (150-450); RED BLOOD COUNT 5.45 10^6/uL (4.30-6.10); WHITE BLOOD COUNT 6.3 10^3/uL (4.0-10.0)
[2021-01-13 13:00] VITALS: BP 129/80
--- NOTE | 2021-01-14 18:56 | ECGEPIP ---
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
== END 2021-01-13 13:12 | disposition home or self-care (01) ==
LOC: EDBD 10:21 → M ED 10:21
DX: R07.89 Other chest pain (principal); F41.1 Generalized anxiety disorder; R00.1 Bradycardia, unspecified; R94.31 Abnormal electrocardiogram [ECG] [EKG]; I10 Essential (primary) hypertension; G47.33 Obstructive sleep apnea (adult) (pediatric); E66.9 Obesity, unspecified; F12.90 Cannabis use, unspecified, uncomplicated; F17.200 Nicotine dependence, unspecified, uncomplicated; Z88.8 Allergy status to other drugs, medicaments and biological substances; Z79.899 Other long term (current) drug therapy

== ENCOUNTER → 2021-04-06 | Outpatient (REF) | payer MEDICARE ==
[2021-04-06 13:34] LABS: ALBUMIN 3.7 GM/DL (3.2-5.2); ALT/SGPT 40 U/L (12-78); BILIRUBIN,TOTAL 0.5 MG/DL (0.2-1.0); BLOOD UREA NITROGEN 14 MG/DL (7-18); CALCIUM LEVEL 9.1 MG/DL (8.8-10.2); CARBON DIOXIDE LEVEL 30 MEQ/L (21-32); CHLORIDE LEVEL 108 MEQ/L (98-107); CHOLESTEROL LEVEL 174 MG/DL (<200); CHOLESTEROL RISK RATIO 3.954 (<5); CREATININE FOR GFR 0.93 MG/DL (0.70-1.30); GLOMERULAR FILTRATION RATE > 60.0 (>49); GLUCOSE, FASTING 119 MG/DL (70-100); HDL CHOLESTEROL 44 MG/DL (>40); LDL CHOLESTEROL 107 MG/DL (<100); NON-HDL-C 130 MG/DL; POTASSIUM SERUM 4.1 MEQ/L (3.5-5.1); SODIUM LEVEL 144 MEQ/L (136-145); TRIGLYCERIDES LEVEL 116 MG/DL (<150)
== END ==
LOC: M SFHCADAM 07:41
PROVIDERS: ATTEND Physician Assistant Medical
DX: I10 Essential (primary) hypertension (principal); E78.2 Mixed hyperlipidemia

== ENCOUNTER → 2021-05-20 | Outpatient (CLI) | payer MEDICARE ==
[~2021-05-20] MED LIST changes: +ACET1TAB55 PO; +B-122500 PO; +ODOR100T3 PO; +[UNRECOGNIZED DRUG - OTHER]
== END ==
LOC: M LABSMTC 12:02
PROVIDERS: ATTEND Anesthesiology
DX: Z01.818 Encounter for other preprocedural examination (principal); Z11.52 Encounter for screening for COVID-19

== ENCOUNTER → 2021-09-30 | Outpatient (REF) | payer MEDICARE ==
[2021-09-30 16:23] LABS: ALBUMIN 3.8 GM/DL (3.2-5.2); ALT/SGPT 32 U/L (12-78); BILIRUBIN,TOTAL 0.8 MG/DL (0.2-1.0); BLOOD UREA NITROGEN 16 MG/DL (7-18); CALCIUM LEVEL 8.9 MG/DL (8.8-10.2); CARBON DIOXIDE LEVEL 28 MEQ/L (21-32); CHLORIDE LEVEL 108 MEQ/L (98-107); CHOLESTEROL LEVEL 92 MG/DL (<200); CHOLESTEROL RISK RATIO 2.044 (<5); CREATININE FOR GFR 0.86 MG/DL (0.70-1.30); GLOMERULAR FILTRATION RATE > 60.0 (>49); GLUCOSE, FASTING 101 MG/DL (70-100); HDL CHOLESTEROL 45 MG/DL (>40); LDL CHOLESTEROL 36 MG/DL (<100); NON-HDL-C 47 MG/DL; POTASSIUM SERUM 4.3 MEQ/L (3.5-5.1); SODIUM LEVEL 139 MEQ/L (136-145); TOTAL PROTEIN 6.9 GM/DL (6.4-8.2); TRIGLYCERIDES LEVEL 57 MG/DL (<150)
[2021-09-30 16:32] LABS: HEMOGLOBIN A1c 5.3 %
[2021-09-30 16:49] LABS: MALB URINE SIEMENS 10.4 MG/L; MAU/CREAT RATIO 5.4 MCG/MG (0.0-30.0)
== END ==
LOC: M SFHCADAM 13:13
PROVIDERS: ATTEND Physician Assistant Medical
DX: E78.2 Mixed hyperlipidemia (principal); R73.01 Impaired fasting glucose

== ENCOUNTER → 2021-10-08 | Outpatient (REF) | payer MEDICARE ==
[2021-10-08 13:21] LABS: C REACTIVE PROTEIN QUANTITATIV < 0.30 MG/DL (0.00-0.30); COMPLEMENT C3 105 MG/DL (90-180); COMPLEMENT C4 16 MG/DL (10-40); RHEUMATOID FACTOR QUANT < 10.0 IU/ML (<15.0)
[2021-10-14 11:30] LABS: DRVV SCREEN 31.3 SEC
[2021-10-14 11:31] LABS: PTT LUPUS TYPE ANTICOAG SCREEN 0.8 (0-1.2)
[2021-10-15 17:09] LABS: ANA (HEP2) Positive (.); ANTI DS-DNA AB Negative (Negative); CARDIOLIPIN IGA ANTIBODY <9 APL U/mL (0-11); CARDIOLIPIN IGG ANTIBODY <9 GPL U/mL (0-14); CARDIOLIPIN IGM ANTIBODY <9 MPL U/mL (0-12); CYCLIC CITRULLINATED PEPTIDE 13 units (0-19); HLA-B27 Negative (.)
== END ==
LOC: M SFHCADAM 10:30
PROVIDERS: ATTEND Physician Assistant Medical
DX: G89.29 Other chronic pain (principal)

== ENCOUNTER → 2022-01-13 | Outpatient (REF) | payer MEDICARE ==
[2022-01-13 12:30] LABS: EOS # 0.1 10^3/uL (0.0-0.5); EOS % 2.1 % (0.0-3.0); HEMOGLOBIN 15.5 g/dl (13.5-17.5); LYMPH # 1.2 10^3/uL (1.5-5.0); LYMPH % 31.9 % (24.0-44.0); MEAN CORPUSCULAR HEMOGLOBIN 30.5 pg (27.0-33.0); MEAN CORPUSCULAR HGB CONC 32.3 g/dl (32.0-36.5); MEAN CORPUSCULAR VOLUME 94.5 fl (80.0-96.0); MONO # 0.3 10^3/uL (0.0-0.8); NEUTROPHILS # 2.2 10^3/uL (1.5-8.5); NEUTROPHILS % 56.7 % (36.0-66.0); PLATELET COUNT, AUTOMATED 159 10^3/uL (150-450); RED BLOOD COUNT 5.08 10^6/uL (4.30-6.10); WHITE BLOOD COUNT 3.9 10^3/uL (4.0-10.0)
[2022-01-13 12:44] LABS: ALBUMIN 4.2 GM/DL (3.2-5.2); ALT/SGPT 38 U/L (12-78); BILIRUBIN,TOTAL 0.9 MG/DL (0.2-1.0); BLOOD UREA NITROGEN 14 MG/DL (7-18); C REACTIVE PROTEIN QUANTITATIV < 0.30 MG/DL (0.00-0.30); CALCIUM LEVEL 9.4 MG/DL (8.8-10.2); CARBON DIOXIDE LEVEL 34 MEQ/L (21-32); CHLORIDE LEVEL 104 MEQ/L (98-107); COMPLEMENT C3 89 MG/DL (90-180); COMPLEMENT C4 15 MG/DL (10-40); CREATININE FOR GFR 0.76 MG/DL (0.70-1.30); GLOMERULAR FILTRATION RATE > 60.0 (>49); GLUCOSE, FASTING 67 MG/DL (70-100); POTASSIUM SERUM 4.5 MEQ/L (3.5-5.1); SODIUM LEVEL 137 MEQ/L (136-145); TOTAL PROTEIN 7.5 GM/DL (6.4-8.2)
[2022-01-13 12:54] LABS: APPEARANCE, URINE MANUAL CLEAR (CLEAR); COLOR, URINE MANUAL YELLOW (YELLOW)
[2022-01-13 12:56] LABS: GLUCOSE, URINE (UA) MANUAL NEGATIVE (NEGATIVE); PROTEIN, URINE MANUAL NEGATIVE (NEGATIVE)
[2022-01-13 12:57] LABS: BILIRUBIN, URINE MANUAL NEGATIVE (NEGATIVE); BLOOD URINE MANUAL NEGATIVE (NEGATIVE); KETONE, URINE MANUAL 1+ mg/dL (NEGATIVE); LEUKOCYTE ESTERASE, URINE MAN NEGATIVE (NEGATIVE); NITRITE, URINE MANUAL NEGATIVE (NEGATIVE); UROBILINOGEN, URINE MANUAL NORMAL (NORMAL)
[2022-01-13 13:01] LABS: ERYTHROCYTE SEDIMENTATION RATE 5 mm/hr (0-20)
[2022-01-13 13:09] LABS: TOTAL PROTEIN,RANDOM URINE 8.6 MG/DL (0.0-12.0)
== END ==
LOC: M SFHCRHEU 08:58
PROVIDERS: ATTEND Internal Medicine Rheumatology
DX: R76.8 Other specified abnormal immunological findings in serum (principal); M35.3 Polymyalgia rheumatica

== ENCOUNTER → 2022-01-14 | Outpatient (CLI) | payer MEDICARE | LOC: M ADAMS 08:57 | PROVIDERS: ATTEND Internal Medicine Rheumatology | DX: M19.041 Primary osteoarthritis, right hand (principal); M19.042 Primary osteoarthritis, left hand; M50.20 Other cervical disc displacement, unspecified cervical region; M35.3 Polymyalgia rheumatica; R76.8 Other specified abnormal immunological findings in serum; M51.34 Other intervertebral disc degeneration, thoracic region ==

== ENCOUNTER → 2022-03-04 | Outpatient (CLI) | payer MEDICARE | LOC: M PAIN 09:00 | PROVIDERS: ATTEND Nurse Practitioner Family | DX: M79.10 Myalgia, unspecified site (principal); I10 Essential (primary) hypertension; G47.33 Obstructive sleep apnea (adult) (pediatric); Z86.59 Personal history of other mental and behavioral disorders; Z87.891 Personal history of nicotine dependence; Z88.8 Allergy status to other drugs, medicaments and biological substances; Z79.899 Other long term (current) drug therapy ==

== ENCOUNTER → 2022-04-14 | Outpatient (CLI) | payer MEDICARE | LOC: M LABSMTC 09:37 | PROVIDERS: ATTEND Anesthesiology | DX: Z01.812 Encounter for preprocedural laboratory examination (principal); Z11.52 Encounter for screening for COVID-19 ==

== ENCOUNTER → 2022-04-16 | Outpatient (CLI) | payer MEDICARE ==
[~2022-04-16] MED LIST changes: +BUPIVACAINE HCL 0.25% 10ML VIAL As Ordered ONE; +BUPIVACAINE HCL 0.25% 30ML VIAL As Ordered ONE; +TRIAMCINOLONE ACETONIDE SUSP 40MG/ML 1ML VIAL As Ordered ONE
== END ==
LOC: M PAIN 15:30
PROVIDERS: ATTEND Anesthesiology
DX: M79.18 Myalgia, other site (principal); M54.2 Cervicalgia; G89.29 Other chronic pain; I10 Essential (primary) hypertension; G47.33 Obstructive sleep apnea (adult) (pediatric); Z86.59 Personal history of other mental and behavioral disorders; Z87.891 Personal history of nicotine dependence; Z88.8 Allergy status to other drugs, medicaments and biological substances; Z79.899 Other long term (current) drug therapy
CPT/HCPCS: 20553; J3301

== ENCOUNTER → 2022-04-28 | Outpatient (CLI) | payer MEDICARE ==
[~2022-04-28] MED LIST changes: -BUPIVACAINE HCL 0.25% 10ML VIAL As Ordered ONE; -BUPIVACAINE HCL 0.25% 30ML VIAL As Ordered ONE; -TRIAMCINOLONE ACETONIDE SUSP 40MG/ML 1ML VIAL As Ordered ONE
== END ==
LOC: M PLAIMG 13:50
PROVIDERS: ATTEND Anesthesiology
DX: M50.21 Other cervical disc displacement, high cervical region (principal); M50.221 Other cervical disc displacement at C4-C5 level; M50.222 Other cervical disc displacement at C5-C6 level; M50.223 Other cervical disc displacement at C6-C7 level; M47.812 Spondylosis without myelopathy or radiculopathy, cervical region

== ENCOUNTER → 2022-05-18 | Outpatient (CLI) | payer MEDICARE | LOC: M PAIN 09:30 | PROVIDERS: ATTEND Nurse Practitioner Family | DX: M54.6 Pain in thoracic spine (principal); G89.29 Other chronic pain; I10 Essential (primary) hypertension; G47.33 Obstructive sleep apnea (adult) (pediatric); Z86.59 Personal history of other mental and behavioral disorders; Z87.891 Personal history of nicotine dependence; Z88.8 Allergy status to other drugs, medicaments and biological substances; Z79.899 Other long term (current) drug therapy ==

== ENCOUNTER → 2022-05-18 | Outpatient (CLI) | payer MEDICARE | LOC: M PAIN 09:30 | PROVIDERS: ATTEND Nurse Practitioner Family | DX: M54.6 Pain in thoracic spine (principal); G89.29 Other chronic pain; I10 Essential (primary) hypertension; G47.33 Obstructive sleep apnea (adult) (pediatric); Z86.59 Personal history of other mental and behavioral disorders; Z87.891 Personal history of nicotine dependence; Z88.8 Allergy status to other drugs, medicaments and biological substances; Z79.899 Other long term (current) drug therapy ==

== ENCOUNTER → 2022-06-24 | Outpatient (CLI) | payer MEDICARE | LOC: M PLARAD 12:18 | PROVIDERS: ATTEND Nurse Practitioner Family | DX: M54.50 Low back pain, unspecified (principal) ==

== ENCOUNTER → 2022-06-25 | Outpatient (CLI) | payer MEDICARE | LOC: M PAIN 09:00 | PROVIDERS: ATTEND Nurse Practitioner Family | DX: M54.6 Pain in thoracic spine (principal); G89.29 Other chronic pain; I10 Essential (primary) hypertension; G47.33 Obstructive sleep apnea (adult) (pediatric); Z86.59 Personal history of other mental and behavioral disorders; Z87.891 Personal history of nicotine dependence; Z88.8 Allergy status to other drugs, medicaments and biological substances; Z79.899 Other long term (current) drug therapy ==

== ENCOUNTER → 2022-07-13 | Outpatient (REF) | payer MEDICARE ==
[2022-07-13 14:54] LABS: GLOMERULAR FILTRATION RATE > 60.0 (>49)
== END ==
LOC: M LABDRWAD 14:27
PROVIDERS: ATTEND Nurse Practitioner Family
DX: M54.6 Pain in thoracic spine (principal)

== ENCOUNTER → 2022-07-16 | Outpatient (CLI) | payer MEDICARE | LOC: M PLARAD 08:54 | PROVIDERS: ATTEND Nurse Practitioner Family | DX: M54.6 Pain in thoracic spine (principal) ==

== ENCOUNTER → 2022-08-05 | Outpatient (CLI) | payer MEDICARE | LOC: M PAIN 09:15 | PROVIDERS: ATTEND Nurse Practitioner Family | DX: M79.10 Myalgia, unspecified site (principal); M54.6 Pain in thoracic spine; G89.29 Other chronic pain; I10 Essential (primary) hypertension; G47.33 Obstructive sleep apnea (adult) (pediatric); Z86.59 Personal history of other mental and behavioral disorders; Z87.891 Personal history of nicotine dependence; Z88.8 Allergy status to other drugs, medicaments and biological substances; Z79.899 Other long term (current) drug therapy ==

== ENCOUNTER → 2022-10-11 | Outpatient (REF) | payer MEDICARE ==
[2022-10-11 14:24] LABS: CHOLESTEROL RISK RATIO 2.62 (<5); HDL CHOLESTEROL 53.7 MG/DL (>40); LDL CHOLESTEROL 70.9 MG/DL (<100); NON-HDL-C 87.3 MG/DL; THYROID STIMULATING HORMONE 1.722 uIU/ML (0.55-4.78)
[2022-10-11 14:25] LABS: TOTAL 25(OH) VITAMIN D 32.3 NG/ML (20.0-100.0)
== END ==
LOC: M SFHCADAM 07:06
PROVIDERS: ATTEND Physician Assistant Medical
DX: I87.2 Venous insufficiency (chronic) (peripheral) (principal); E66.01 Morbid (severe) obesity due to excess calories; E78.2 Mixed hyperlipidemia

== ENCOUNTER → 2023-10-11 | Outpatient (REF) | payer MEDICARE ==
[2023-10-11 14:39] LABS: HEMATOCRIT 47.3 % (42.0-52.0); HEMOGLOBIN 15.6 g/dl (13.5-17.5); MEAN CORPUSCULAR HEMOGLOBIN 31.3 pg (27.0-33.0); MEAN CORPUSCULAR VOLUME 94.8 fl (80.0-96.0); PLATELET COUNT, AUTOMATED 156 10^3/uL (150-450); RED BLOOD COUNT 4.99 10^6/uL (4.30-6.10)
[2023-10-11 14:53] LABS: HEMOGLOBIN A1c 4.8 % (4.0-6.0)
[2023-10-11 15:12] LABS: THYROID STIMULATING HORMONE 1.791 uIU/ML (0.55-4.78); TOTAL 25(OH) VITAMIN D 32.1 NG/ML (20.0-100.0)
[2023-10-11 15:25] LABS: ALBUMIN 3.9 G/DL (3.2-5.2); ALKALINE PHOSPHATASE 89 U/L (46-116); ALT/SGPT 28 U/L (7.0-40); AST/SGOT 19 U/L (<34); BILIRUBIN,TOTAL 0.6 MG/DL (0.3-1.2); BLOOD UREA NITROGEN 20 MG/DL (9-23); CALCIUM LEVEL 9.5 MG/DL (8.3-10.6); CARBON DIOXIDE LEVEL 30 MMOL/L (20-31); CHLORIDE LEVEL 106 MMOL/L (98-107); CHOLESTEROL LEVEL 166 MG/DL (<200); CHOLESTEROL RISK RATIO 3.13 (<5); CREATININE FOR GFR 0.85 MG/DL (0.70-1.30); GLOMERULAR FILTRATION RATE > 60.0 (>49); GLUCOSE, FASTING 82 MG/DL (74-106); LDL CHOLESTEROL 93.8 MG/DL (<100); POTASSIUM SERUM 4.3 MMOL/L (3.5-5.1); SODIUM LEVEL 142 MMOL/L (136-145); TOTAL PROTEIN 6.6 G/DL (5.7-8.2); TRIGLYCERIDES LEVEL 96 MG/DL (<150)
== END ==
LOC: M SFHCADAM 08:46
PROVIDERS: ATTEND Physician Assistant Medical
DX: I10 Essential (primary) hypertension (principal); E78.2 Mixed hyperlipidemia; Z79.899 Other long term (current) drug therapy

== ENCOUNTER → 2023-10-31 | Outpatient (CLI) | payer MEDICARE ==
[~2023-10-31] MED LIST changes: +ISOVUE-370 76% 100ML VIAL ONE
== END ==
LOC: M PLAIMG 10:59
PROVIDERS: ATTEND Physician Assistant Medical
DX: K11.7 Disturbances of salivary secretion (principal); K11.1 Hypertrophy of salivary gland
CPT/HCPCS: 70491; Q9967

== ENCOUNTER → 2023-12-14 | Outpatient (CLI) | payer MEDICARE ==
[~2023-12-14] MED LIST changes: -ISOVUE-370 76% 100ML VIAL ONE
== END ==
LOC: M WHC 07:34
PROVIDERS: ATTEND Physician Assistant Medical
DX: N62 Hypertrophy of breast (principal)
CPT/HCPCS: 77066; G0279

== ENCOUNTER → 2024-11-19 | Outpatient (CLI) | payer MEDICARE | LOC: M RAD 08:47 | PROVIDERS: ATTEND Physician Assistant Medical | DX: Z13.6 Encounter for screening for cardiovascular disorders (principal) ==

== ENCOUNTER → 2025-01-02 | Outpatient (REF) | payer MEDICARE ==
[2025-01-02 18:20] LABS: ALT/SGPT 27.0 U/L (7.0-40); AST/SGOT 29.0 U/L (<34); CALCIUM LEVEL 9.8 MG/DL (8.3-10.6); CARBON DIOXIDE LEVEL 30.0 MMOL/L (20-31); CHLORIDE LEVEL 103.0 MMOL/L (98-107); CREATININE FOR GFR 0.94 MG/DL (0.70-1.30); GLOMERULAR FILTRATION RATE 88.9 (>49); POTASSIUM SERUM 4.8 MMOL/L (3.5-5.1); SODIUM LEVEL 144.0 MMOL/L (136-145)
[2025-01-02 18:52] LABS: BASO # 0.0 10^3/uL (0.0-0.2); BASO % 0.8 % (0.0-1.0); EOS # 0.0 10^3/uL (0.0-0.5); EOS % 0.8 % (0.0-3.0); LYMPH # 1.7 10^3/uL (1.5-5.0); LYMPH % 33.4 % (24.0-44.0); MONO # 0.4 10^3/uL (0.0-0.8); MONO % 8.5 % (2.0-8.0); NEUTROPHILS # 2.9 10^3/uL (1.5-8.5); NEUTROPHILS % 56.3 % (36.0-66.0); PLATELET COUNT, AUTOMATED 190 10^3/uL (150-450)
== END ==
LOC: M SFHCADAM 11:40
PROVIDERS: ATTEND Physician Assistant
DX: R05.3 Chronic cough (principal); F17.210 Nicotine dependence, cigarettes, uncomplicated

== ENCOUNTER → 2025-01-10 | Outpatient (CLI) | payer MEDICARE ==
[~2025-01-10] MED LIST changes: +LEVOTAB10 PO; +METO50TA7 PO; +METOPROLOL PO; +WARF-23 PO
== END ==
LOC: M RAD 10:09
PROVIDERS: ATTEND Physician Assistant
DX: R05.3 Chronic cough (principal); F17.210 Nicotine dependence, cigarettes, uncomplicated; J44.9 Chronic obstructive pulmonary disease, unspecified; N20.0 Calculus of kidney; N28.1 Cyst of kidney, acquired

== ENCOUNTER 2025-01-12 09:36 | Emergency (ER) | payer MEDICARE ==
[~2025-01-12] VITALS: Ht 185.4 cm; Wt 142.6 kg
[~2025-01-12 09:36] MED LIST changes: -LEVOTAB10 PO; -METO50TA7 PO; -METOPROLOL PO; -WARF-23 PO
[2025-01-12 10:12] LABS: BASO # 0.0 10^3/uL (0.0-0.2); BASO % 0.6 % (0.0-1.0); EOS # 0.1 10^3/uL (0.0-0.5); EOS % 1.3 % (0.0-3.0); LYMPH # 1.8 10^3/uL (1.5-5.0); LYMPH % 26.4 % (24.0-44.0); MONO # 0.4 10^3/uL (0.0-0.8); MONO % 5.6 % (2.0-8.0); NEUTROPHILS # 4.4 10^3/uL (1.5-8.5); NEUTROPHILS % 66.0 % (36.0-66.0); PLATELET COUNT, AUTOMATED 193 10^3/uL (150-450)
[2025-01-12] MEDS ORDERED: METO1TAB87 PO (10:45)
[2025-01-12 10:49] LABS: CALCIUM LEVEL 9.5 MG/DL (8.3-10.6); CARBON DIOXIDE LEVEL 28.0 MMOL/L (20-31); CHLORIDE LEVEL 106.0 MMOL/L (98-107); CREATININE FOR GFR 1.01 MG/DL (0.70-1.30); GLOMERULAR FILTRATION RATE 81.5 (>49); MAGNESIUM LEVEL 2.2 MG/DL (1.8-2.4); POTASSIUM SERUM 4.7 MMOL/L (3.5-5.1); SODIUM LEVEL 143.0 MMOL/L (136-145)
[2025-01-12] MEDS ORDERED: LEVOTAB10 PO (10:53)
[2025-01-12] MEDS ORDERED: METOPROLOL PO (10:57)
[2025-01-12] MEDS ORDERED: HOME MED LIST COMPLETE! XX SCH (11:00)
[2025-01-12 11:02] VITALS: BP 104/75
[2025-01-12] MEDS: METOPROLOL TART 25 MG TABLET PO ONE (11:02)
[2025-01-12] MEDS: METOPROLOL 5 MG/5 ML VIAL IV SCH (11:02)
[2025-01-12] MEDS ORDERED: ELIQ5TAB PO (12:17)
[2025-01-12] MEDS ORDERED: METO50TA7 PO (13:08)
[2025-01-12] MEDS ORDERED: WARF-23 PO (13:08)
[2025-01-12 13:28] VITALS: BP 120/65; TEMP 96.8; O2SAT 95
== END 2025-01-12 13:51 | disposition home or self-care (01) ==
LOC: M ED 09:36
DX: I48.91 Unspecified atrial fibrillation (principal); I45.10 Unspecified right bundle-branch block; I44.4 Left anterior fascicular block; G47.33 Obstructive sleep apnea (adult) (pediatric); I10 Essential (primary) hypertension; F12.10 Cannabis abuse, uncomplicated; E78.5 Hyperlipidemia, unspecified; Z86.79 Personal history of other diseases of the circulatory system; Z87.891 Personal history of nicotine dependence; Z79.1 Long term (current) use of non-steroidal anti-inflammatories (NSAID); Z79.01 Long term (current) use of anticoagulants; Z79.899 Other long term (current) drug therapy
CPT/HCPCS: 71045; 80048; 83735; 85025; 93005; 93041; 94760; 96374; 99285; J0616

== ENCOUNTER → 2025-01-29 | Outpatient (REF) | payer MEDICARE ==
[~2025-01-29] MED LIST changes: +LEVOTAB10 PO; +METO50TA7 PO; +METOPROLOL PO; +WARF-23 PO
[2025-01-29 13:08] LABS: INR 4.04
== END ==
LOC: M SFHCADAM 12:43
PROVIDERS: ATTEND Physician Assistant Medical
DX: I48.91 Unspecified atrial fibrillation (principal)